=== PATIENT | female | born 1945 | race Caucasian/White ===

== ENCOUNTER 2020-03-30 06:22 | Outpatient (REF) | payer MEDICARE, SELFPAY ==
[2020-03-30 07:24] LABS: MANUAL DIFF FLAG NO
[2020-03-30 07:27] LABS: Basophils Absolute Auto 0.1 X10*3/uL (0.0-0.2); Basophils Percent Auto 1.2 % (0-2); Eosinophils Absolute Auto 0.2 X10*3/uL (0.0-0.4); Glucose Urine UA NEG (NEG); Hematocrit 38.1 % (37-47); Hemoglobin 12.8 g/dl (12.0-16.0); Imm Gran Abs Auto 0.01 X10*3/uL (0.00-0.03); Imm Gran Pct Auto 0.2 % (0.0-0.4); Leukocyte Esterase Urine NEG (NEG); Lymphocytes Absolute Auto 1.9 X10*3/uL (1.2-4.9); Lymphocytes Percent Auto 32.7 % (20-40); Mean Corpuscular HGB Conc 33.6 g/dl (31.0-35.0); Mean Corpuscular Hemoglobin 31.9 pg (27.0-33.0); Mean Platelet Volume 9.9 fL (9.4-12.3); Monocytes Absolute Auto 0.8 X10*3/uL (0.1-1.2); Monocytes Percent Auto 13.7 % (2-11); Neutrophils Absolute Auto 2.8 X10*3/uL (2.0-8.3); Neutrophils Percent Auto 49.2 % (45-73); Nitrite Urine NEG (NEG); PH 6.5 (5.0-8.0); Platelet Count 210 X10*3/uL (160-400); Red Blood Count 4.01 X10*6/uL (4.20-5.50); Red Cell Distribution Width 13.1 % (11.0-16.0); Urine Blood TRACE (NEG); Urine Ketones NEG (NEG); Urine Protein NEG (NEG-TRACE); White Blood Count 5.7 X10*3/uL (4.8-10.8)
[2020-03-30 07:28] LABS: Appearance Urine HAZY; Color Urine YELLOW
[2020-03-30 07:45] LABS: Alanine Aminotransferase 22 U/L (0-31); Alkaline Phosphatase 85 U/L (39-117); Anion Gap 12 (12-20); Aspartate Amino Transferase 25 U/L (5-31); Bilirubin Total 0.5 mg/dL (0.0-1.0); Blood Urea Nitrogen 15 mg/dL (9-16); Calcium 8.9 mg/dL (8.4-10.2); Carbon Dioxide 27 mmol/L (22-29); Chloride 100 mmol/L (96-108); Cholesterol 145 mg/dL; Estimated Glomerular Filt Rate > 60; Glucose Fasting 105 mg/dL (60-99); HDL Cholesterol 51 mg/dL; LDL Cholesterol Calculated 63 mg/dl; Potassium 5.2 mmol/l (3.3-5.1); Sodium 134 mmol/L (135-145); Total Protein 7.3 g/dL (6.5-8.0); Triglycerides 155 mg/dL
[2020-03-30 07:52] LABS: Bacteria Urine 4+ /LPF; RBC Urine 0-2 /HPF (0); Squamous Epithelial Cell Urine 3+ /LPF
[2020-03-30 08:07] LABS: Thyroid Stimulating Hormone 1.71 uIU/mL (0.32-4.0); Vitamin D 25-OH Total 35.8 ng/mL (>30)
== END 2020-03-30 06:23 | disposition home or self-care (01) ==
LOC: HO.LAB 06:22
PROVIDERS: PCP Internal Medicine; Visit Provider Internal Medicine
DX: I25.10 Atherosclerotic heart disease of native coronary artery without angina pectoris (principal); I10 Essential (primary) hypertension; E78.5 Hyperlipidemia, unspecified; I48.0 Paroxysmal atrial fibrillation; Z00.00 Encounter for general adult medical examination without abnormal findings; Z91.09 Other allergy status, other than to drugs and biological substances
CPT/HCPCS: 36415; 80053; 80061; 81001; 82306; 84443; 85025

== ENCOUNTER 2020-12-15 08:36 | Outpatient (REF) | payer MEDICARE, SELFPAY ==
--- NOTE | ~2020-12-15 | XR_ITS ---
EXAMINATION: XR CHEST XR THORACIC SPINE CLINICAL INFORMATION: Back pain COMPARISON: None TECHNIQUE: 2 views of the chest. 3 views of the thoracic spine. FINDINGS: Chest: The cardiac silhouette does not appear enlarged. There is mitral annular calcification. There is a right subclavian single chamber pacemaker defibrillator with tip projecting over the ventricular apex. Hilar and mediastinal contours are unremarkable. The lungs are clear. There is no pleural effusion or pneumothorax. There are T5, T6, T7 and T10 vertebral body compression fractures. There is a L2 vertebral body compression fracture. There are degenerative changes at the shoulder joints. There are postsurgical changes to the left shoulder. Thoracic Spine: There is mild curvature of the thoracolumbar spine. There are T5, T6, T7, T9 and L2 vertebral body compression fractures. Paraspinal soft tissues are unremarkable. There are degenerative changes of the visualized cervical spine. XR/XR thoracic spine 3V IMPRESSION: No evidence for acute disease in the chest. T5, T6, T7, T9 and L2 vertebral body compression fractures.
--- NOTE | ~2020-12-15 | XR_ITS ---
EXAMINATION: XR CHEST XR THORACIC SPINE CLINICAL INFORMATION: Back pain COMPARISON: None TECHNIQUE: 2 views of the chest. 3 views of the thoracic spine. FINDINGS: Chest: The cardiac silhouette does not appear enlarged. There is mitral annular calcification. There is a right subclavian single chamber pacemaker defibrillator with tip projecting over the ventricular apex. Hilar and mediastinal contours are unremarkable. The lungs are clear. There is no pleural effusion or pneumothorax. There are T5, T6, T7 and T10 vertebral body compression fractures. There is a L2 vertebral body compression fracture. There are degenerative changes at the shoulder joints. There are postsurgical changes to the left shoulder. Thoracic Spine: There is mild curvature of the thoracolumbar spine. There are T5, T6, T7, T9 and L2 vertebral body compression fractures. Paraspinal soft tissues are unremarkable. There are degenerative changes of the visualized cervical spine. XR/XR chest 2V IMPRESSION: No evidence for acute disease in the chest. T5, T6, T7, T9 and L2 vertebral body compression fractures.
== END 2020-12-15 08:37 | disposition home or self-care (01) ==
LOC: HO.XRAY 08:36
PROVIDERS: PCP Internal Medicine; Visit Provider Internal Medicine
DX: M54.6 Pain in thoracic spine (principal)
CPT/HCPCS: 71046; 72072

== ENCOUNTER 2021-12-27 11:13 | Outpatient (REF) | payer MEDICARE, SELFPAY ==
[2021-12-27 14:00] LABS: MANUAL DIFF FLAG NO
[2021-12-27 14:22] LABS: Basophils Absolute Auto 0.1 X10*3/uL (0.0-0.2); Basophils Percent Auto 0.8 % (0-2); Eosinophils Absolute Auto 0.2 X10*3/uL (0.0-0.4); Eosinophils Percent Auto 2.7 % (0-4); Hematocrit 38.9 % (37.0-47.0); Hemoglobin 13.5 g/dl (12.0-16.0); Imm Gran Abs Auto 0.01 X10*3/uL (0.00-0.03); Imm Gran Pct Auto 0.1 % (0.0-0.4); Lymphocytes Absolute Auto 2.5 X10*3/uL (1.2-4.9); Lymphocytes Percent Auto 33.7 % (20-40); Mean Corpuscular HGB Conc 34.7 g/dl (31.0-35.0); Mean Corpuscular Hemoglobin 33.2 pg (27.0-33.0); Mean Corpuscular Volume 95.6 fL (80.0-98.0); Mean Platelet Volume 10.6 fL (9.4-12.3); Monocytes Percent Auto 13.8 % (2-11); Neutrophils Absolute Auto 3.6 x10*3/uL (2.0-8.3); Neutrophils Percent Auto 48.9 % (45-73); Platelet Count 191 X10*3/uL (160-400); Red Blood Count 4.07 X10*6/uL (4.20-5.50); Red Cell Distribution Width 12.8 % (11.0-16.0); White Blood Count 7.3 X10*3/uL (4.8-10.8)
[2021-12-27 14:44] LABS: Anion Gap 15 (12-20); Blood Urea Nitrogen 16 mg/dL (9-16); Calcium 9.3 mg/dL (8.4-10.2); Carbon Dioxide 27 mmol/L (22-29); Chloride 96 mmol/L (96-108); Estimated Glomerular Filt Rate > 60; Glucose Random 96 mg/dL (60-115); Potassium 4.7 mmol/L (3.3-5.1); Sodium 133 mmol/L (135-145)
== END 2021-12-27 11:14 | disposition home or self-care (01) ==
LOC: HO.HMGCLDS 11:13
PROVIDERS: PCP Internal Medicine; Visit Provider Internal Medicine
DX: H26.9 Unspecified cataract (principal); I25.10 Atherosclerotic heart disease of native coronary artery without angina pectoris; I10 Essential (primary) hypertension
CPT/HCPCS: 36415; 80048; 85025

== ENCOUNTER 2022-04-12 09:59 | Outpatient (REF) | payer MEDICARE, SELFPAY ==
--- NOTE | ~2022-04-12 | XR_ITS ---
EXAMINATION: XR HAND, LEFT CLINICAL INFORMATION: Left hand pain. COMPARISON: None TECHNIQUE: PA, lateral, and oblique views of the left hand. FINDINGS: Mild soft tissue swelling surrounds the proximal interphalangeal joint of the fourth digit with mild proximal interphalangeal degenerative joint changes. There is no overt acute underlying fracture. Moderate hypertrophic changes are seen in the distal interphalangeal joint of the fifth digit 6. Surrounding small calcifications are seen as well. Mild degenerative changes are seen in the remainder of the interphalangeal joints as well as first carpometacarpal and triscaphe joints. The carpal bones are normally aligned. The soft tissues are unremarkable. XR/XR hand LT min 3V IMPRESSION: 1. Mild soft tissue swelling surrounding the proximal interphalangeal joint of the fourth digit without definitive acute underlying osseous abnormality. Lines 2. Degenerative joint changes most consistent with osteoarthritis.
== END 2022-04-12 10:00 | disposition home or self-care (01) ==
LOC: HO.HOSX 09:59
PROVIDERS: PCP Internal Medicine; Visit Provider Orthopaedic Surgery
DX: M19.042 Primary osteoarthritis, left hand (principal)
CPT/HCPCS: 73130; 99202

== ENCOUNTER 2023-01-16 06:42 | Outpatient (REF) | payer MEDICARE, SELFPAY ==
[2023-01-16 07:06] LABS: MANUAL DIFF FLAG NO
[2023-01-16 07:39] LABS: Basophils Absolute Auto 0.1 X10*3/uL (0.0-0.2); Eosinophils Absolute Auto 0.2 X10*3/uL (0.0-0.4); Eosinophils Percent Auto 3.1 % (0-4); Hematocrit 38.5 % (37.0-47.0); Hemoglobin 13.1 g/dl (12.0-16.0); Imm Gran Abs Auto 0.01 X10*3/uL (0.00-0.03); Imm Gran Pct Auto 0.2 % (0.0-0.4); Lymphocytes Absolute Auto 2.1 X10*3/uL (1.2-4.9); Lymphocytes Percent Auto 36.5 % (20-40); Mean Platelet Volume 10.1 fL (9.4-12.3); Monocytes Absolute Auto 0.8 X10*3/uL (0.1-1.2); Monocytes Percent Auto 13.8 % (2-11); Neutrophils Absolute Auto 2.6 x10*3/uL (2.0-8.3); Neutrophils Percent Auto 45.4 % (45-73); Platelet Count 180 X10*3/uL (160-400); Red Blood Count 3.97 X10*6/uL (4.20-5.50); Red Cell Distribution Width 12.8 % (11.0-16.0); White Blood Count 5.7 X10*3/uL (4.8-10.8)
[2023-01-16 08:05] LABS: Alanine Aminotransferase 18 U/L (0-31); Albumin Level 3.9 g/dL (3.5-5.0); Alkaline Phosphatase 67 U/L (39-117); Anion Gap 12 (12-20); Aspartate Amino Transferase 28 U/L (5-31); Bilirubin Total 0.5 mg/dL (0.0-1.0); Blood Urea Nitrogen 12 mg/dL (9-16); Calcium 9.3 mg/dL (8.4-10.2); Carbon Dioxide 26 mmol/L (22-29); Chloride 100 mmol/L (96-108); Cholesterol 152 mg/dL (<200); Estimated Glomerular Filt Rate > 60; Glucose Fasting 98 mg/dL (60-99); HDL Cholesterol 51 mg/dL (>40); LDL Cholesterol Calculated 75 mg/dL (<100); Potassium 5.1 mmol/L (3.3-5.1); Sodium 133 mmol/L (135-145); Total Protein 7.6 g/dL (6.5-8.0); Triglycerides 132 mg/dL (<150)
[2023-01-16 08:20] LABS: Thyroid Stimulating Hormone 1.91 uIU/mL (0.32-4.0)
== END 2023-01-16 06:43 | disposition home or self-care (01) ==
LOC: HO.LAB 06:42
PROVIDERS: PCP Internal Medicine; Visit Provider Internal Medicine
DX: I25.10 Atherosclerotic heart disease of native coronary artery without angina pectoris (principal); I10 Essential (primary) hypertension; I48.0 Paroxysmal atrial fibrillation; E78.5 Hyperlipidemia, unspecified
CPT/HCPCS: 36415; 80053; 80061; 84443; 85025

== ENCOUNTER 2023-01-23 12:10 | Emergency (ER) | payer MEDICARE, SELFPAY ==
[2023-01-23] VITALS (9 sets, daily range): BP systolic 113–211; BP diastolic 53–99; PULSE 68–75; RESP 12–18; TEMP 36.7–36.8; O2SAT 86–97; BMI 28.3
--- NOTE | ~2023-01-23 | CT_ITS ---
STUDY: Unenhanced CT of the head and facial bones INDICATION: Pain after head and facial trauma TECHNIQUE: Continuous helical imaging obtained through the head and facial bones without IV contrast. Reconstructed images performed in the coronal and sagittal planes. This CT examination was performed using dose optimization techniques as appropriate, variously including the following: *Automated exposure control *Adjustment of mA and/or kV according to patient size (this includes techniques or standardized protocols for targeted exams where dose is matched to indication/reason for exam; i.e. extremities or head) *Use of iterative reconstruction technique TOTAL EXAM DLP: 306.92 mGy-cm FINDINGS: HEAD: Mild age-related volume loss. No intracranial hemorrhage or extra-axial fluid collections are identified. No evolving infarct, mass lesion, mass effect or midline shift. Lens extractions have been performed. No cranial fractures. See below for facial and sinus findings. FACIAL BONES: Large left periorbital/facial hematoma. Slightly depressed left lateral maxillary wall fractures. Small fractures involving the anterior and posterior maxillary malik with left maxillary soft tissue density with hyper and hypodense components. Tiny left orbital floor fracture not excluded on coronal 53/280. No displaced nasal fractures, but anterior nasal spine is irregular, axial 130/239. No maxillary or mandibular fractures. Zygomatic arches, right maxillary and orbital malik are intact. Temporomandibular joints are maintained. Frontal, ethmoid, sphenoid and right maxillary sinuses and mastoids are clear. Leftward nasal septal deviation and spur. Degenerative changes cervical spine. Nasopharynx, oropharynx, hypopharyngeal and laryngeal structures without abnormality. Submandibular and parotid glands are unremarkable. No pathologic lymphadenopathy. Dense carotid bulb calcifications. CT/CT facial bones wo IV con IMPRESSION: Large left periorbital and facial soft tissue hematoma with acute appearing fractures anterior, posterior and lateral left maxillary malik with complex left maxillary hemorrhage. Tiny left orbital floor fracture not excluded. Question possible posttraumatic loss of integrity anterior nasal spine. Left nasal septal deviation with spur. No acute intracranial pathology.
--- NOTE | ~2023-01-23 | CT_ITS ---
STUDY: Unenhanced CT of the cervical spine, IV contrast-enhanced CT of the chest, abdomen and pelvis COMPARISON: 12/15/2020 INDICATION: Traumatic fall, left flank pain TECHNIQUE: Continuous helical imaging obtained through the cervical spine without IV contrast. Reconstructed images performed in coronal and sagittal planes. Following injection of 85 mL Omnipaque 350, continuous helical imaging obtained through the chest, abdomen and pelvis. Reconstructed images performed in the coronal and sagittal planes. This CT examination was performed using dose optimization techniques as appropriate, variously including the following: *Automated exposure control *Adjustment of mA and/or kV according to patient size (this includes techniques or standardized protocols for targeted exams where dose is matched to indication/reason for exam; i.e. extremities or head) *Use of iterative reconstruction technique TOTAL EXAM DLP: 447, 236, 575 mGy-cm 4 cervical spine, chest, abdomen and pelvis respectively. FINDINGS: [employer]: Cervical spine: Degenerative changes. Chest: Pacer/AICD, aortic calcifications. Abdomen and pelvis: No obstruction. Phleboliths. CERVICAL SPINE: Cervical lordotic straightening. No traumatic fracture or subluxation. Multilevel degenerative changes including prolific facet hypertrophic changes. Bilateral neuroforaminal narrowings, most severe left C3-C4. No spinal canal narrowing. C5-C6 disc space obliteration. C6-C7 disc disease. Trace anterolisthesis C4 on C5. Odontoid is intact. Posterior elements are aligned and no prevertebral soft tissue swelling seen. Visualized intracranial structures within normal limits. Left maxillary sinus disease. Visualized nasopharynx, oropharynx, hypopharyngeal and laryngeal structures without abnormality. Submandibular and parotid glands within normal limits. Dense vascular calcifications bilateral carotid bulbs. No pathologic lymphadenopathy. CHEST: Airways, lungs and pleura: Trachea and bronchi are patent. Mosaic attenuation. No suspicious lung lesions. No pneumothoraces, pleural effusions, pleural thickening or pleural-based masses. Scattered atelectasis. Mediastinum: Unremarkable thyroid. Prominent lymph nodes, largest prevascular lymph node measures 1.2 cm, largest pretracheal measures 1.2 cm. Subcarinal lymph node measures 1 cm in short axis. Subcentimeter bilateral hilar lymph nodes. Heart and great vessels: Enlarged heart, particularly the left atrium. Mitral annular calcifications. Left ventricular outpouching suspicious for pseudoaneurysm versus aneurysm Indwelling pacer. Degree of coronary calcifications: Severe. Nonaneurysmal aorta with atherosclerotic calcifications. Enlarged pulmonary arteries, question pulmonary arterial hypertension. Chest wall and axilla: No pathologic lymphadenopathy. Right-sided implanted battery pack for AICD/pacer. Benign left breast calcifications. ABDOMEN AND PELVIS: Hepatobiliary: Liver normal in size, shape and attenuation. No liver lesions or intrahepatic or extrahepatic biliary ductal dilatation. Unremarkable gallbladder. Spleen: Pancreas: Adrenal glands without abnormality. Kidneys, ureters and bladder: Left renal hypodensities consistent with cysts. 3 mm left upper pole nonobstructing calculus. No hydroureteronephrosis or perinephric stranding. Unremarkable urinary bladder. Vessels: Atherosclerotic calcifications nonaneurysmal aorta with patency of mesenteric vessels. Unremarkable inferior venacavogram iliac veins. Patent portal system. Gastrointestinal: Hiatal hernia. Decompressed stomach. Nonobstructive bowel pattern. No bowel pathology recognized. Peritoneum: No free air, free fluid or stranding. Lymph nodes: No pathologic lymphadenopathy. Pelvic organs: Pessary. Bilateral ovaries are identified, left is largest measuring 2.4 cm. Phleboliths. BONES AND SOFT TISSUES: Kyphosis. T5, T6, T7, T10, L2 compression fractures seen previously. Moderate spinal canal narrowing L3-L4 due to ligamentum flavum and facet hypertrophy and small disc bulge. Multilevel disc space narrowing, most pronounced L5-S1. Mild retrolisthesis L2 on L3 Mild anterolisthesis L5 on S1 CT/CT abdomen pelvis w IV con IMPRESSION: No acute posttraumatic pathology cervical spine, chest, abdomen and pelvis. Pulmonary mosaic attenuation, question small airway disease. Left ventricular outpouching: Aneurysm versus pseudoaneurysm. Consider cardiac echo if not previously performed. 3 mm nonobstructing left renal calculus. Enlarged mediastinal lymph nodes. Stable thoracic and lumbar compression fractures.
--- NOTE | ~2023-01-23 | XR_ITS ---
EXAMINATION: XR RIBS, LEFT CLINICAL INFORMATION: Left rib and flank pain. Fall. COMPARISON: Previous chest and thoracic spine x-ray November 2020 TECHNIQUE: 3 views of the left ribs and one view of the chest were obtained. FINDINGS: The cardiac and mediastinal contours are stable. There is a right subclavian pacemaker AICD device unchanged in position. The lungs are clear. No pleural effusion or pneumothorax. No rib fracture. There are old thoracic and lumbar vertebral body compression fractures. There are degenerative changes of the spine and shoulders. There is evidence of previous surgery to the left shoulder. XR/XR ribs LT min 3V w CXR1V IMPRESSION: No evidence for acute disease in the chest. No rib fracture.
--- NOTE | 2023-01-23 12:15 | ED.GENADULT ---
HPI - General Adult General Chief complaint: Fall Stated complaint: fall facial inj Time Seen by Provider: 01/23/23 15:23 Source: patient Mode of arrival: ambulatory History of Present Illness HPI narrative: 77-year-old female who is on chronic blood thinners for proxy is mall atrial fibrillation reports a mechanical fall after tripping on the corner of her carpet and landing on her left side striking her left side of her face on the stone tile without loss of consciousness and reports left chest wall pain as well as significant pain and swelling to the left eye area Related Data Home Medications Medication Instructions Recorded Confirmed apixaban 5 mg tablet (Eliquis) 5 mg PO BID 04/12/22 estradiol 2 mg (7.5 mcg/24 hour) 1 vaginal [id number] 04/12/22 vaginal ring (Estring) ezetimibe 10 mg tablet 10 mg PO DAILY 04/12/22 fluoride (sodium) 1.1 % dental dental DIRECTED 04/12/22 paste (PreviDent 5000 Dry Mouth) furosemide 20 mg tablet 20 mg PO DAILY 04/12/22 omeprazole 20 mg capsule,delayed 20 mg PO DAILY 04/12/22 release ramipril 10 mg capsule 10 mg PO DAILY 04/12/22 rosuvastatin 40 mg tablet 40 mg PO DAILY 04/12/22 zafirlukast 20 mg tablet 20 mg PO BID 04/12/22 Allergies Allergy/AdvReac Type Severity Reaction Status Date / Time Sulfa (Sulfonamide Allergy Unknown hives Verified 04/12/22 10:04 Antibiotics) Review of Systems Review of Systems: Pertinent positives and negatives as stated in HPI [facility] Past Medical History Source: nursing notes reviewed Medical History Afib History of heart attack Surgical History History of appendectomy History of left knee replacement H/O lumpectomy Social History Social History Alcohol intake: current Use of substances other than those prescribed or required for medical reasons: No Advance Directives: No Advance Directives Information Provided: No Current occupational status: retired and disabled 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 Physical Exam ED Vital Signs: Vital Signs - 24 hr 01/23/23 12:14 01/23/23 15:25 01/23/23 15:25 Temperature 98.0 F 98.2 F Pulse Rate 69 68 72 Respiratory Rate 18 18 18 Blood Pressure 201/89 H 211/99 H Pulse Oximetry 95 96 97 Oxygen Delivery Method Room Air Room Air Oxygen Flow Rate 01/23/23 16:28 01/23/23 16:29 01/23/23 16:30 Temperature Pulse Rate 75 Respiratory Rate 17 Blood Pressure 194/90 H Pulse Oximetry 86 L 95 96 Oxygen Delivery Method Room Air Nasal Cannula Nasal Cannula Oxygen Flow Rate 3 2 01/23/23 16:51 01/23/23 18:02 Temperature Pulse Rate 73 Respiratory Rate Blood Pressure 155/84 H 115/59 L Pulse Oximetry 95 Oxygen Delivery Method Nasal Cannula Oxygen Flow Rate 2 BMI result Body Mass Index 28.3 VITAL SIGNS: Reviewed. GENERAL: Well developed, well nourished, in no acute distress. HEAD: Normocephalic/atraumatic, EYES: PERRLA, EOMI without gaze palsy, tremendous left periorbital contusion with obvious hemorrhagic component that extends caudally to the mid left buccal area EARS: Ext canals without abnormality, TMs non-bulging and non-erythematous NOSE: Nares patent bilateral OROPHARYNX: no oral lesions noted, posterior pharynx clear NECK: Supple, no adenopathy LUNGS: Normal breath sounds. No adventitious sounds or accessory muscle use. SpO2<95>; CHEST WALL: No obvious deformity, no crepitus on palpation but significant tenderness to palpation at left chest wall approximate 7 in 8 rib CARDIOVASCULAR: Regular rate and rhythm without noted murmurs, no JVD or lower extremity edema. ABDOMEN: Soft, non-tender, non-distended with bowel sounds. PELVIS: Stable, nontender MUSCULOSKELETAL: No tenderness, deformities, or effusions noted on gross inspection. EXTREMITIES: No cyanosis, clubbing or edema. LEFT SHOULDER: 1.5 cm ecchymosis at anterior shoulder without obvious deformity, scar tissue consistent with prior surgery. SKIN: Inspection of the skin reveals no rashes, ulcerations, jaundice, pallor, or petechiae. NEUROLOGIC: Alert and oriented x 4. Strength and sensation to light touch were grossly intact x 4. Course Course Course Narrative: This is an RME: Additional HPI, ROS, PE not included below will be deferred to primary provider. 77 y o female on blood thinners presenting for headache and facial pain s/p fall with +HS, -LOC. Endorsing mild blurry vision in the L eye near area of strike. Also c/o L flank pain. Ambulating well, no current dizziness, cp, sob Plan -- Imaging Medications Administered Discontinued Medications Generic Name Dose Route Start Last Admin Trade Name [place]ell PRN Reason Stop Dose Admin Hydralazine HCl 5 mg 01/23/23 16:32 01/23/23 16:38 Hydralazine Hcl 20 Mg/Ml Vial IVPUSH 01/23/23 16:33 5 mg ONCE ONE Administration Protocol Iohexol 85 ml 01/23/23 16:24 01/23/23 16:25 Iohexol 350 Mg/Ml 100 Ml Infus..Btl IV 01/23/23 16:25 85 ml ONCE ONE Administration Morphine Sulfate 2 mg 01/23/23 15:24 01/23/23 15:41 Morphine Sulfate 2 Mg/Ml Cartridge IVPUSH 01/23/23 15:25 2 mg ONCE ONE Administration Protocol Medical Decision Making Medical Decision Making MDM Narrative: 77-year-old female with history and clinical presentation, DDX: Mechanical fall, periorbital fracture, intracranial hemorrhage, left shoulder fracture, left rib fractures I reviewed all investigations and hematologic indices are negative for leukocytosis/left shift, anemia or thrombocytopenia. Coagulation studies consistent with history of Eliquis use, PT-14.9 and INR-1.2. Chemistry indices without HAL, there is a noted elevation of potassium-5.4, otherwise liver enzymes are within normal limits. Chest x-ray not significant for pneumothorax or infiltrate at and no rib fractures identified. CT of the head no acute intracranial bleeding. CT facial significant for large left periorbital and facial soft tissue hematoma with acute appearing fractures anterior/posterior and lateral left maxillary malik with complex left maxillary hemorrhage. Tiny left orbital floor fracture is not excluded. I do not appreciate any gaze palsies to suggest ocular muscle entrapment, pupillary reflex is brisk, there is no complaint of significant eye pain, acuity is intact. Are reviewed remaining CT scans of cervical spine, chest, abdomen/pelvis and there are no acute fractures or intra-abdominal pathologies. Patient did experience some hypotension but was completely oriented throughout and denied any dizziness, shortness of breath, or chest pain. This may have been after she received 5 mg of hydralazine for her blood pressure. 1807: I discuss the case with [facility] who will put me in contact with Dr. William from trauma. 181: As per Dr William, not considered trauma and recommended ED to ED with OMFS consultation. 181: I spoke with Dr Keys in the ED and accepts transfer. 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 Please see the discussion above 01/23/23 12:59 01/23/23 12:59 Labs: Lab Results 01/23/23 Range/Units 12:59 WBC 7.6 (4.8-10.8) X10*3/uL RBC 4.09 L (4.20-5.50) X10*6/uL Hgb 13.5 (12.0-16.0) g/dl Hct 39.4 (37.0-47.0) % MCV 96.3 (80.0-98.0) fL MCH 33.0 (27.0-33.0) pg MCHC 34.3 (31.0-35.0) g/dl RDW 12.8 (11.0-16.0) % Plt Count 187 (160-400) X10*3/uL MPV 9.7 (9.4-12.3) fL Immature Gran % (Auto) 0.3 (0.0-0.4) % Neut % (Auto) 56.4 (45-73) % Lymph % (Auto) 29.5 (20-40) % Mcdowell % (Auto) 11.1 H (2-11) % Eos % (Auto) 2.0 (0-4) % Baso % (Auto) 0.7 (0-2) % Lymph # (Auto) 2.3 (1.2-4.9) X10*3/uL Mcdowell # (Auto) 0.9 (0.1-1.2) X10*3/uL Eos # (Auto) 0.2 (0.0-0.4) X10*3/uL Baso # (Auto) 0.1 (0.0-0.2) X10*3/uL Abs Immat Gran (auto) 0.02 (0.00-0.03) X10*3/uL Absolute Neuts (auto) 4.3 (2.0-8.3) x10*3/uL Absolute Nucleated RBC 0.000 (0.0-0.012) X10*3/uL Nucleated RBC % (auto) 0.0 (0.0-0.2) /100WBC PT 14.9 H (11.1-13.3) SEC INR 1.2 H (0.9-1.1) Sodium 132 L (135-145) mmol/L Potassium 5.4 H (3.3-5.1) mmol/L Chloride 97 (96-108) mmol/L Carbon Dioxide 27 (22-29) mmol/L Anion Gap 13 (12-20) BUN 13 (9-16) mg/dL Creatinine 0.82 (0.5-1.4) mg/dL Estim Creat Clear Calc 62.1 Estimated GFR > 60 Random Glucose 113 (60-115) mg/dL Calcium 10.3 H D (8.4-10.2) mg/dL Total Bilirubin 0.5 (0.0-1.0) mg/dL AST 31 (5-31) U/L ALT 19 (0-31) U/L Alkaline Phosphatase 64 (39-117) U/L Total Protein 8.1 H (6.5-8.0) g/dL Albumin 4.2 (3.5-5.0) g/dL Independent Interpretation I performed an independent interpretation of an: EKG Interpretation: Sinus rhythm with PACs, HR-79, no STEMI, MN/QRS/QTC is within normal limits. There is no EKG for comparison and patient does have a history of ID. Radiology Impression Discussion of test interpretation with radiology: I have reviewed the radiologist's reading. Radiologist Impression: Please see the discussion above External Record Review External record reviewed: Outpatient record, Prior outpatient labs and Prior outpatient radiology Chronic Conditions Patient?s care impacted by: Hypertension Critical Care Time Critical Care Time Critical Care Time: Yes Total Critical Care Time: 45 Attestation: I personally attest to this time spent taking care of the patient. Discharge Plan Discharge Clinical Impression: Trauma, Fall, Periorbital hematoma of left eye, Fracture of orbital floor, blow-out, left, closed Patient Disposition: er Acute Care Hospital Transfer Details: OMFS evaluation ED to ED Prescriptions: No Action Eliquis 5 mg tablet 5 mg PO BID ramipril 10 mg capsule 10 mg PO DAILY rosuvastatin 40 mg tablet 40 mg PO DAILY omeprazole 20 mg capsule,delayed release(DR/EC) 20 mg PO DAILY furosemide 20 mg tablet 20 mg PO DAILY Estring 2 mg (7.5 mcg /24 hour) ring 1 vaginal [id number] ezetimibe 10 mg tablet 10 mg PO DAILY zafirlukast 20 mg tablet 20 mg PO BID fluoride (sodium) [PreviDent 5000 Dry Mouth] 1.1 % paste dental DIRECTED
[2023-01-23 13:03] LABS: MANUAL DIFF FLAG NO
[2023-01-23 13:08] LABS: Basophils Absolute Auto 0.1 X10*3/uL (0.0-0.2); Basophils Percent Auto 0.7 % (0-2); Eosinophils Absolute Auto 0.2 X10*3/uL (0.0-0.4); Hematocrit 39.4 % (37.0-47.0); Hemoglobin 13.5 g/dl (12.0-16.0); Imm Gran Abs Auto 0.02 X10*3/uL (0.00-0.03); Imm Gran Pct Auto 0.3 % (0.0-0.4); Lymphocytes Absolute Auto 2.3 X10*3/uL (1.2-4.9); Lymphocytes Percent Auto 29.5 % (20-40); Mean Corpuscular HGB Conc 34.3 g/dl (31.0-35.0); Mean Corpuscular Volume 96.3 fL (80.0-98.0); Mean Platelet Volume 9.7 fL (9.4-12.3); Monocytes Absolute Auto 0.9 X10*3/uL (0.1-1.2); Monocytes Percent Auto 11.1 % (2-11); Neutrophils Absolute Auto 4.3 x10*3/uL (2.0-8.3); Neutrophils Percent Auto 56.4 % (45-73); Platelet Count 187 X10*3/uL (160-400); Red Blood Count 4.09 X10*6/uL (4.20-5.50); Red Cell Distribution Width 12.8 % (11.0-16.0); White Blood Count 7.6 X10*3/uL (4.8-10.8)
[2023-01-23 13:19] LABS: INTERNATIONAL NORM RATIO 1.2 (0.9-1.1); Prothrombin Time 14.9 SEC (11.1-13.3)
[2023-01-23 13:26] LABS: Alanine Aminotransferase 19 U/L (0-31); Albumin Level 4.2 g/dL (3.5-5.0); Alkaline Phosphatase 64 U/L (39-117); Anion Gap 13 (12-20); Aspartate Amino Transferase 31 U/L (5-31); Bilirubin Total 0.5 mg/dL (0.0-1.0); Blood Urea Nitrogen 13 mg/dL (9-16); Calcium 10.3 mg/dL (8.4-10.2); Carbon Dioxide 27 mmol/L (22-29); Chloride 97 mmol/L (96-108); Creatinine Clr Calc Pharmacy 62.1; Estimated Glomerular Filt Rate > 60; Glucose Random 113 mg/dL (60-115); Potassium 5.4 mmol/L (3.3-5.1); Sodium 132 mmol/L (135-145); Total Protein 8.1 g/dL (6.5-8.0)
--- NOTE | 2023-01-23 15:39 | ECG_ITS ---
Test Reason : fall Blood Pressure : / mmHG Vent. Rate : 079 BPM Atrial Rate : 079 BPM P-R Int : 180 ms QRS Dur : 080 ms QT Int : 376 ms P-R-T Axes : 084 -11 071 degrees QTc Int : 431 ms Sinus rhythm with Premature atrial complexes Inferior infarct , age undetermined Anterior infarct , age undetermined Abnormal ECG No previous ECGs available Referred By: Cristina Romano Electronically Signed By:DIANE DU
[2023-01-23] MEDS: Morphine Sulfate 2 MG/ML CARTRIDGE IVPUSH (15:41)
[2023-01-23] MEDS: iohexoL 350 MG/ML 100 ML INFUS..BTL 85 ML IV (16:25)
[2023-01-23] MEDS: hydrALAZINE HCl 20 MG/ML VIAL 5 MG IVPUSH (16:38)
--- NOTE | 2023-01-23 16:52 | PC.NURSE ---
Pt O2 86%-87% on RA, pt placed on 2L NC O2 improved to 93-95%, MD updated. Pt BP 190's/90's, MD updated 5mg IV Hydralazine ordered, administered per MD order, pt tolerated well BP recheck 155/84 with HR 72. Pt states 3/10 pain, pt states she is comfortable at this time.
--- NOTE | 2023-01-23 22:26 | PC.NURSE ---
this rn gave report to ems prior to transport to [facility]. pt calm and cooperative. A&O x 4. this rn gave rn to rn report to Dick BRIDGES at [facility]. vss. pt declines pain medication prior to discharge
== END 2023-01-23 22:29 | disposition short-term general hospital (02) ==
PROVIDERS: Physician Assistant; Emergency Provider Student in an Organized Health Care Education/Training Program; PCP Internal Medicine
DX: S02.32XA Fracture of orbital floor, left side, initial encounter for closed fracture (principal); S20.212A Contusion of left front wall of thorax, initial encounter; S00.12XA Contusion of left eyelid and periocular area, initial encounter; W01.198A Fall on same level from slipping, tripping and stumbling with subsequent striking against other object, initial encounter; I48.0 Paroxysmal atrial fibrillation; Z79.01 Long term (current) use of anticoagulants; Z79.899 Other long term (current) drug therapy; Y93.89 Activity, other specified; Y92.9 Unspecified place or not applicable; Y99.9 Unspecified external cause status
CPT/HCPCS: 36415; 70450; 70486; 71101; 71260; 72125; 74177; 80053; 85025; 85610; 93005; 96374; 96375; 99285; J2270; Q9967

== ENCOUNTER 2023-04-19 10:23 | Outpatient (REF) | payer MEDICARE, SELFPAY ==
[2023-04-19 14:03] LABS: Anion Gap 11 (12-20); Blood Urea Nitrogen 15 mg/dL (9-16); Calcium 9.2 mg/dL (8.4-10.2); Carbon Dioxide 30 mmol/L (22-29); Chloride 98 mmol/L (96-108); Estimated Glomerular Filt Rate > 60; Glucose Random 99 mg/dL (60-115); Potassium 4.3 mmol/L (3.3-5.1); Sodium 135 mmol/L (135-145)
== END 2023-04-19 10:24 | disposition home or self-care (01) ==
LOC: HO.10HDL 10:23
PROVIDERS: Visit Provider Internal Medicine
DX: I10 Essential (primary) hypertension (principal)
CPT/HCPCS: 36415; 80048

== ENCOUNTER 2023-12-19 09:15 | Outpatient (REF) | payer MEDICARE, SELFPAY ==
--- NOTE | ~2023-12-19 | XR_ITS ---
EXAMINATION: XR LUMBOSACAL SPINE. XR PELVIS XR SACROILIAC JOINTS CLINICAL INDICATION: Patient states pain, acute. TECHNIQUE: 3 views of the bilateral sacroiliac joints, AP view of the pelvis, and 3 views of the lumbar spine. COMPARISON: CT abdomen and pelvis of 01/23/2023, x-ray left ribs 01/23/2023, x-ray thoracic spine 12/15/2020. FINDINGS: LUMBAR SPINE: Diffuse demineralization. Atherosclerotic aortoiliac calcifications. Facet arthritis in the mid to lower lumbar spine. Redemonstration of compression deformity of L2 vertebral body. Multilevel lumbar spondylosis is severe at L5-S1 with marked loss of disc space height and subchondral sclerosis. Grade 1 anterolisthesis of L5 on S1. Moderate compression deformity of T12 vertebral body. BILATERAL SACROILIAC JOINTS: Diffuse demineralization. Moderate degenerative changes in the bilateral sacroiliac joints, left greater than right. PELVIS: Moderate degenerative changes in the bilateral hip joints with joint space narrowing and hypertrophic change. Diffuse demineralization. XR/XR lumbar spine 2-3V IMPRESSION: 1. Redemonstration of compression deformity of L2 vertebral body. 2. Multilevel lumbar spondylosis most notable at L5-S1 with marked loss of disc space height and subchondral sclerosis. Grade 1 anterolisthesis of L5 on S1. 3. Moderate compression deformity of T12 vertebral body. 4. Moderate degenerative changes in the bilateral sacroiliac joints, left greater than right. 5. Moderate degenerative changes in the bilateral hip joints with joint space narrowing and hypertrophic change. 6. Diffuse demineralization limits evaluation for fractures or other pathology. Additional imaging could be considered if there is clinical concern for fracture or other pathology. This study was presented today January 07, 2024 for interpretation. Stat results provided at this time as requested by referring provider. Electronically signed by: Anjali Harry MD 01/07/2024 03:28 PM EDT
--- NOTE | ~2023-12-19 | XR_ITS ---
EXAMINATION: XR LUMBOSACAL SPINE. XR PELVIS XR SACROILIAC JOINTS CLINICAL INDICATION: Patient states pain, acute. TECHNIQUE: 3 views of the bilateral sacroiliac joints, AP view of the pelvis, and 3 views of the lumbar spine. COMPARISON: CT abdomen and pelvis of 01/23/2023, x-ray left ribs 01/23/2023, x-ray thoracic spine 12/15/2020. FINDINGS: LUMBAR SPINE: Diffuse demineralization. Atherosclerotic aortoiliac calcifications. Facet arthritis in the mid to lower lumbar spine. Redemonstration of compression deformity of L2 vertebral body. Multilevel lumbar spondylosis is severe at L5-S1 with marked loss of disc space height and subchondral sclerosis. Grade 1 anterolisthesis of L5 on S1. Moderate compression deformity of T12 vertebral body. BILATERAL SACROILIAC JOINTS: Diffuse demineralization. Moderate degenerative changes in the bilateral sacroiliac joints, left greater than right. PELVIS: Moderate degenerative changes in the bilateral hip joints with joint space narrowing and hypertrophic change. Diffuse demineralization. XR/XR pelvis 1-2V IMPRESSION: 1. Redemonstration of compression deformity of L2 vertebral body. 2. Multilevel lumbar spondylosis most notable at L5-S1 with marked loss of disc space height and subchondral sclerosis. Grade 1 anterolisthesis of L5 on S1. 3. Moderate compression deformity of T12 vertebral body. 4. Moderate degenerative changes in the bilateral sacroiliac joints, left greater than right. 5. Moderate degenerative changes in the bilateral hip joints with joint space narrowing and hypertrophic change. 6. Diffuse demineralization limits evaluation for fractures or other pathology. Additional imaging could be considered if there is clinical concern for fracture or other pathology. This study was presented today January 07, 2024 for interpretation. Stat results provided at this time as requested by referring provider. Electronically signed by: Anjali Harry MD 01/07/2024 03:28 PM EDT
--- NOTE | ~2023-12-19 | XR_ITS ---
EXAMINATION: XR LUMBOSACAL SPINE. XR PELVIS XR SACROILIAC JOINTS CLINICAL INDICATION: Patient states pain, acute. TECHNIQUE: 3 views of the bilateral sacroiliac joints, AP view of the pelvis, and 3 views of the lumbar spine. COMPARISON: CT abdomen and pelvis of 01/23/2023, x-ray left ribs 01/23/2023, x-ray thoracic spine 12/15/2020. FINDINGS: LUMBAR SPINE: Diffuse demineralization. Atherosclerotic aortoiliac calcifications. Facet arthritis in the mid to lower lumbar spine. Redemonstration of compression deformity of L2 vertebral body. Multilevel lumbar spondylosis is severe at L5-S1 with marked loss of disc space height and subchondral sclerosis. Grade 1 anterolisthesis of L5 on S1. Moderate compression deformity of T12 vertebral body. BILATERAL SACROILIAC JOINTS: Diffuse demineralization. Moderate degenerative changes in the bilateral sacroiliac joints, left greater than right. PELVIS: Moderate degenerative changes in the bilateral hip joints with joint space narrowing and hypertrophic change. Diffuse demineralization. XR/XR sacroiliac joint min 3V IMPRESSION: 1. Redemonstration of compression deformity of L2 vertebral body. 2. Multilevel lumbar spondylosis most notable at L5-S1 with marked loss of disc space height and subchondral sclerosis. Grade 1 anterolisthesis of L5 on S1. 3. Moderate compression deformity of T12 vertebral body. 4. Moderate degenerative changes in the bilateral sacroiliac joints, left greater than right. 5. Moderate degenerative changes in the bilateral hip joints with joint space narrowing and hypertrophic change. 6. Diffuse demineralization limits evaluation for fractures or other pathology. Additional imaging could be considered if there is clinical concern for fracture or other pathology. This study was presented today January 07, 2024 for interpretation. Stat results provided at this time as requested by referring provider. Electronically signed by: Anjali Harry MD 01/07/2024 03:28 PM EDT
== END 2023-12-19 09:16 | disposition home or self-care (01) ==
LOC: HO.XRAY 09:15
PROVIDERS: PCP Internal Medicine; Visit Provider Internal Medicine
DX: M54.50 Low back pain, unspecified (principal)
CPT/HCPCS: 72100; 72170; 72202

== ENCOUNTER 2024-07-09 14:28 | Outpatient (AMB) | payer MEDICARE, SELFPAY ==
--- NOTE | 2024-07-09 14:25 | MHC.PC.OV ---
Vital Signs 07/09/24 14:32 Height 5 ft 3.75 in Weight 158 lb BMI 27.3 BP 124/56 L Blood Pressure Location Rt brachial Pulse 57 Pulse Source Pulse Oximeter Temp 97.5 F Pulse Oximetry (%) 96 Intake Visit Reasons: follow up - see comments Intake Note: would like something to clear upher lungs really congested has a coughing fit. Allergies Sulfa (Sulfonamide Antibiotics) Allergy (Unknown, Verified 07/09/24 14:46) hives Medication List - Last Reconciled 07/09/24 by Tana Escobar PA-C albuterol sulfate 90 mcg/actuation 1 puff inhalation QID apixaban (Eliquis) 5 mg PO BID aspirin (Ecotrin Low Strength) 81 mg PO DAILY biotin mcg PO carvedilol 12.5 mg PO BID cholecalciferol (vitamin D3) 50 mcg PO DAILY estradiol (Estring) 1 vaginal [id number] ezetimibe 10 mg PO DAILY fexofenadine (Maude Allergy) 180 mg PO DAILY fluoride (sodium) 1.1% (PreviDent 5000 Dry Mouth) dental DIRECTED furosemide 20 mg PO DAILY krill oil mg PO wewjberalwaw-ksif-uuqmu acid 18-400 mg-mcg (Centrum) 1 tab PO DAILY nitroglycerin (Nitrostat) 0.4 mg sublingual Q5M PRN omeprazole 20 mg PO DAILY ramipril 10 mg PO DAILY rosuvastatin 40 mg PO DAILY zafirlukast 20 mg PO BID [facility] Medical History (Updated 07/09/24 @ 15:28 by Tana Escobar PA-C) Overweight (BMI 25.0-29.9) Bronchitis History of mammogram (~11/23/23) Breast cancer, left Squamous cell carcinoma of skin GERD (gastroesophageal reflux disease) Hyperlipidemia Hypertension Paroxysmal atrial fibrillation Congestive heart failure Coronary artery disease History of heart attack Surgical History History of colonoscopy (~12/20/18) History of appendectomy History of left knee replacement H/O lumpectomy Social History Alcohol intake: current Current occupational status: retired and disabled 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 Physical exam (Primary Care) Vital Signs: Last Vital Signs Temp 97.5 F 07/09/24 14:32 Pulse 57 07/09/24 14:32 BP 124/56 L 07/09/24 14:32 Pulse Ox 96 07/09/24 14:32 Care Plan Goal for BP management: <130/80 at goal BMI result Body Mass Index 27.3 BMI Assessment/Plan discussion: High BMI High, discussed plan: lifestyle, weight reduction, dietary, physical activity and alcohol moderation Coding Level of Care Code New Pt Level 4 (48341) Complex EM visit Add On G2211 Diagnoses Squamous cell carcinoma of skin C44.92 GERD (gastroesophageal reflux disease) K21.9 Hyperlipidemia E78.5 Hypertension I10 Paroxysmal atrial fibrillation I48.0 Congestive heart failure I50.9 Coronary artery disease I25.10 History of heart attack I25.2 Osteoarthritis of left hand M19.042 Bronchitis J40 Overweight (BMI 25.0-29.9) E66.3 Assessment & Plan Assessment & Plan (1) Squamous cell carcinoma of skin: Code(s): C44.92 - Squamous cell carcinoma of skin, unspecified Category: Medical Plan: Condition is chronic and stable continue to monitor. (2) GERD (gastroesophageal reflux disease): Code(s): K21.9 - Gastro-esophageal reflux disease without esophagitis Category: Medical Plan: Patient currently on omeprazole 20 mg daily. Condition is chronic and stable continue to monitor. (3) Hyperlipidemia: Code(s): E78.5 - Hyperlipidemia, unspecified Category: Medical Plan: TC Goal <200. Triglycerides Goal <150. LDL Goal <100. HDL> 40. Last lipid panel we have in our system is 01/16/2023 and it revealed triglycerides of 132, total cholesterol 152, LDL of 75, HDL of 51 at goal. Patient to continue Krill oil, ezetimibe 10 mg daily, rosuvastatin 40 mg daily. Condition is chronic and stable continue to monitor. (4) Hypertension: Code(s): I10 - Essential (primary) hypertension Category: Medical Plan: BP Goal <140/80 at Goal. Patient to continue aspirin 81 mg, Eliquis 5 mg p.o. b.i.d., carvedilol 12.5 mg p.o. b.i.d., ramipril 10 mg daily, nitroglycerin 0.4 mg sublingual as needed, rosuvastatin 40 mg daily. Condition is chronic and stable continue to monitor. (5) Paroxysmal atrial fibrillation: Code(s): I48.0 - Paroxysmal atrial fibrillation Category: Medical Plan: BP Goal <140/80 at Goal. Patient to continue aspirin 81 mg, Eliquis 5 mg p.o. b.i.d., carvedilol 12.5 mg p.o. b.i.d., ramipril 10 mg daily, nitroglycerin 0.4 mg sublingual as needed, rosuvastatin 40 mg daily. Condition is chronic and stable continue to monitor. (6) Congestive heart failure: Code(s): I50.9 - Heart failure, unspecified Category: Medical Plan: BP Goal <140/80 at Goal. Patient to continue aspirin 81 mg, Eliquis 5 mg p.o. b.i.d., carvedilol 12.5 mg p.o. b.i.d., ramipril 10 mg daily, nitroglycerin 0.4 mg sublingual as needed, rosuvastatin 40 mg daily. Condition is chronic and stable continue to monitor. (7) Coronary artery disease: Code(s): I25.10 - Atherosclerotic heart disease of [place] coronary artery without angina pectoris Category: Medical Plan: BP Goal <140/80 at Goal. Patient to continue aspirin 81 mg, Eliquis 5 mg p.o. b.i.d., carvedilol 12.5 mg p.o. b.i.d., ramipril 10 mg daily, nitroglycerin 0.4 mg sublingual as needed, rosuvastatin 40 mg daily. Condition is chronic and stable continue to monitor. (8) History of heart attack: Code(s): I25.2 - Old myocardial infarction Category: Medical Plan: BP Goal <140/80 at Goal. Patient to continue aspirin 81 mg, Eliquis 5 mg p.o. b.i.d., carvedilol 12.5 mg p.o. b.i.d., ramipril 10 mg daily, nitroglycerin 0.4 mg sublingual as needed, rosuvastatin 40 mg daily. Condition is chronic and stable continue to monitor. (9) Osteoarthritis of left hand: Code(s): M19.042 - Primary osteoarthritis, left hand Category: Medical Plan: Patient to continue vitamin-D and centrum supplements. Condition is chronic and stable continue to monitor. (10) Bronchitis: Code(s): J40 - Bronchitis, not specified as acute or chronic Category: Medical Plan: A Z-Huang and a short course of prednisone were prescribed for the suspected bacterial bronchitis. Risks and benefits of treatment alternatives were discussed. (11) Overweight (BMI 25.0-29.9): Code(s): E66.3 - Overweight Category: Medical Plan: A Z-Huang and a short course of prednisone were prescribed for the suspected bacterial bronchitis. Risks and benefits of treatment alternatives were discussed. Plan Plan Patient was informed and verbally consented to the use of an ambient scribe for clinic note documentation during this visit. 1. Atrial Fibrillation Continued daily anticoagulation therapy with regular cardiac evaluations. 2. Essential Hypertension Ongoing antihypertensive therapy with planned lipid profiling for cardiovascular risk assessment. 3. Hypercholesterolemia Continued statin therapy and follow-up blood lipid profiles to manage cholesterol. 4. Breast Cancer Continued surveillance for breast cancer with routine mammograms was suggested. 5. Upper Respiratory Tract Infection A Z-Huang and a short course of prednisone were prescribed for the suspected bacterial bronchitis. Risks and benefits of treatment alternatives were discussed. Discussion Notes I discussed with the patient the diagnosis of an upper respiratory tract infection with suggested bronchitis. The management plan includes prescribing a Z-Huang and prednisone to alleviate symptoms. We discussed the ongoing management of her chronic conditions, emphasizing regular follow-ups for blood work and cardiovascular assessments. I advised on the importance of not using sedating medication while driving or operating heavy machinery. The patient verbalized understanding and agreed to the treatment plan. Six-month follow-up appointment and early blood work were advised before the next visit to evaluate fasting lipid profiles, liver enzymes, and other routine laboratory parameters. Orders: Orders Complete Blood Count Auto Diff Today Z00.00 - Encounter for general adult medical examination without abnormal findings C Reactive Protein Today Z00.00 - Encounter for general adult medical examination without abnormal findings Erythrocyte Sedimentation Rate Today Z00.00 - Encounter for general adult medical examination without abnormal findings Hemoglobin A1c Today Z00.00 - Encounter for general adult medical examination without abnormal findings Magnesium Today Z00.00 - Encounter for general adult medical examination without abnormal findings Vitamin B12 and Folate Today Z00.00 - Encounter for general adult medical examination without abnormal findings Vitamin D 25-OH Total Today Z00.00 - Encounter for general adult medical examination without abnormal findings Lipid Panel Today Z00.00 - Encounter for general adult medical examination without abnormal findings Comprehensive [place]. Panel Fast Today Z00.00 - Encounter for general adult medical examination without abnormal findings Liver Panel Today Z00.00 - Encounter for general adult medical examination without abnormal findings Parathyroid Hormone Intact Today Z00.00 - Encounter for general adult medical examination without abnormal findings Medications: New nitroglycerin (Nitrostat) do not exceed 3 doses per episode 0.4 mg sublingual Q5M PRN 30 tabs 0RF chest pain azithromycin For 250 mg dose pack: take 500 mg today (day 1), then 250 mg for 4 days (days 2-5) PO 6 tabs 0RF prednisone 40 mg (2 x 20 mg) PO DAILY 5 days 10 tabs 0RF codeine-guaifenesin 10-100 mg/5 mL 5 mL PO Q6H PRN 120 mL 0RF cough Patient Instructions: Patient Instructions - Take prescribed Z-Huang and prednisone as instructed. - Continue taking current medications as directed unless advised otherwise. - Schedule and complete fasting blood work prior to the six-month follow-up. - Avoid driving or operating machinery while on Robitussin with Codeine. - Return for a follow-up in six months, earlier if symptoms worsen or new symptoms arise. - Seek immediate care if difficulty breathing, chest pain, or other serious symptoms occur. Scribe Plan - Not visible on output: History of Present Illness The patient is a 78-year-old female presenting with upper respiratory symptoms and a request for medication refills. She experienced a persistent cough with mucus production following influenza in June and was exposed to but did not contract COVID-19. Current symptoms include chest congestion and nighttime coughing without fever or severe respiratory distress, presumed bronchitis as the potential cause. She continues with her routine medications without the need for emergency inhaler use. Social History - The patient?s current nutritional intake, level of exercise, substance use, and employment status were not discussed in this visit. Review of Systems - Respiratory: Reports cough and mucus production, denies significant shortness of breath. - Constitutional: Reports past fever when she had the flu in June. - Neurological: Denies headaches, syncope, or dizziness. Physical Exam Appearance: Alert. Oriented X3. No acute distress. Head: Normal external exam. Normocephalic. Atraumatic. Eyes: Pupils are equal, round, and reactive to light. Extraocular movements intact. Conjunctiva and sclera normal. Eyelids normal. Ears: External auditory canal normal. Tympanic membranes normal. Throat: Pharynx normal. Uvula midline. Moist mucous membranes. Neck: Normal inspection. Neck supple. Full range of motion. No adenopathy. Thyroid Normal. No meningeal signs. No neck mass noted. Cardiovascular: Normal heart rate and rhythm. Heart sound normal. No murmurs noted. Pulses normal throughout. Respiratory: No respiratory distress. Painless inspiration. Breath sounds normal. No wheezes/rales/rhonchi noted. Chest nontender. No accessory muscle usage noted or decreased air movement noted. Abdomen: Soft and nontender. Bowel sounds normal in all 4 quadrants. No distention noted. No organomegaly noted. No visible injury noted. Back: No costovertebral angle tenderness. Full range of motion noted. Skin: Skin warm and dry. Normal skin color. Normal skin turgor. No rashes/lesions/lacerations noted. Extremities: No lower extremity edema. Extremities exhibit normal range of motion. Extremities nontender. Neuro: Oriented X 3. No motor deficit. No sensory deficit. Reflexes normal. Results - Tests and Diagnostics: Recent negative COVID-19 test.
[2024-07-09 14:32] VITALS: BP 124/56; PULSE 57; TEMP 36.4; O2SAT 96; BMI 27.3
--- OUTSIDE RECORDS SUMMARY | 2024-07-09 16:47 | XMS_ITS | Clinical Summary ---
Author Organization [facility] Address [address] [place] [address] Care Team Providers Care Sales Operations Lead Name Role Phone Mateo Clements Primary Care Provider [phone] Allergies Active Allergy Reactions Criticality Noted Date Comments Sulfa Antibiotics 11/16/2016 Medications Medication Sig Dispensed Refills Start Date End Date Status ramipril (ALTACE) 5 MG capsule Take 10 mg by mouth daily. 0 Active atenolol (TENORMIN) tablet 50 mg Take 50 mg by mouth daily. 0 Active ATORVASTATIN CALCIUM 80 MG PO TABS Take 80 mg by mouth daily. 0 Active estradiol (ESTRING) [address] 2 mg vaginally every 3 (three) months. follow package directions 0 Active omeprazole (PRILOSEC) 20 MG capsule Take 20 mg by mouth daily. 0 Active nitroglycerin (NITROSTAT) 0.[address] 0.4 mg under the tongue every 5 (five) minutes as needed for chest pain. 0 Active fluticasone (FLONASE) 50 MCG/ACT nasal spray spray/apply 1 spray in each nostril daily. 0 Active KRILL OIL PO Take by mouth. 0 Active Loratadine (CLARITIN PO) Take by mouth. 0 Active cholecalciferol (VITAMIN D3) 1000 UNITS tablet Take 1,000 Units by mouth daily. 0 Active furosemide (LASIX) 20 MG tablet Take 20 mg by mouth 2 (two) times a day. 0 Active carvedilol (COREG) 12.5 MG tablet Take 12.5 mg by mouth 2 (two) times a day with meals. 0 Active apixaban (ELIQUIS) 5 MG TABS tablet Take by mouth every 12 (twelve) hours. 0 Active Biotin 23700 MCG TBDP Take 50,000 Units by mouth. 0 Active Active Problems Problem Noted Date Diagnosed Date Malignant neoplasm of central portion of left fe male breast 11/21/2016 Family History Medical History Relation Name Comments Cancer Brother prostate Heart disease Father Stroke Father Relation Name Status Comments Brother Father Social History Tobacco Use Types Packs/Day Years Used Date Smoking Tobacco: Never Smokeless Tobacco: Never Alcohol Use Standard Drinks/Week Comments Yes 0 (1 standard drink = 0.6 oz pur e alcohol) occasional Sex and Gender Information Value Date Recorded Sex Assigned at Not on file Gender Identity Not on file Sexual Orientation Not on file Last Filed Vital Signs Vital Sign Reading Time Taken Comments Blood Pressure 156/75 11/28/2019 9:23 AM EDT Pulse 60 11/28/2019 9:23 AM EDT Temperature 36.6 ??C (97.8 ??F) 11/28/2019 9:23 AM ED T Respiratory Rate - - Oxygen Saturation - - Inhaled Oxygen Concentration - - Weight 84.4 kg (186 lb) 11/28/2019 9:23 AM EDT Height 167.6 cm (5' 6 ) 11/28/2019 9:23 AM EDT Body Mass Index 30.02 11/28/2019 9:23 AM EDT Plan of Treatment Health Maintenance Due Date Last Done Comments Hepatitis C Screening 1945 COVID-19 Vaccine (#1) 09/13/1950 Pneumococcal Vaccine (1 of 2 - PCV) 1952 Depression Screening 1958 Preventative Health Evaluation 1964 DTap / Tdap / Td (1 - Tdap) 1965 Shingrix-Zoster Vaccine (1 of 2) 1965 Fall Risk Assessment 09/13/2011 Osteoporosis Screening (DEXA Scan) 09/13/2011 RSV Adult > 60+ Yrs or Pregn ant (1 - 1-dose 75+ series) 2021 Influenza Vaccine (#1) 2023 Hepatitis B Vaccines Aged Out No long er eligible based on patient's age to complete this topic RSV Ped < 20 months Aged Out No longe r eligible based on patient's age to complete this topic Care Teams Sales Operations Lead Relationship Specialty Start Date End Date Mateo Clements DO [address] [place] [phone] PCP - General Internal Medicine 11/20/18
--- OUTSIDE RECORDS SUMMARY | 2024-07-09 16:47 | XMS_ITS | Encounter Summary ---
Author Organization [facility] [place] [address] Care Team Providers Care Wireless Team Member Name Role Phone Mateo Clements DO Primary Care Provider [phone] Reason for Visit * Reason Onset Date Comments Med Refill 06/27/2024 Encounter Details Date Type Department Care Team (Late st Contact Info) Description 06/27/2024 Telephone [facility] - [facility] [address] [facility] [address] [place] [address] Ira Matos MA Med Refill Social History Tobacco Use Types Packs/Day Years Used Date Smoking Tobacco: Former Cigarettes Smokeless Tobacco: Never Alcohol Use Standard Drinks/Week Comments Yes 0 (1 standard drink = 0.6 oz pur e alcohol) Comments Unknown Sex and Gender Information Value Date Recorded Sex Assigned at Female 03/03/2024 5:35 PM EST Legal Sex Female 3:44 AM EST Gender Identity Female 03/03/2024 5:35 PM EST Sexual Orientation Straight 03/03/2024 5: 35 PM EST documented as of this encounter Ordered Prescriptions Prescription Sig Dispense Quantity Refills Last Filled Start Date End Date furosemide (LASIX) 20 mg tablet Take 1 tablet (20 mg total) by mouth 1 (one) time each day. 90 tablet 1 06/27/2024 documented in this encounter Progress Notes * Checo Kee NP - 07/07/2024 7:41 AM EDT Can we let the patients know the BMP looks good. * Ira Matos MA - 06/27/2024 3:22 PM ESTAddended by: IRA MATOS on: 06/27/2024 03:22 PM Modules accepted: Orders * Ira Matos MA - 06/27/2024 3:19 PM EST Renewed; lab order mailed. * Checo Kee NP - 06/27/2024 3:07 PM EST It is okay to renew the Lasix but lets have him draw a BMP as soon as she can. * Ira Matos MA - 06/27/2024 2:55 PM EST Ok to renew Lasix 20mg daily ? Dose verified with patient. No updated labs either. Pt states has not had any labs in a while. ROSCOE . Upcoming appt 09.26.2024 If labs are warranted , she goes to [facility] [place] documented in this encounter Plan of Treatment Upcoming Encounters Date Type Department Care Team (Late st Contact Info) Description 09/26/2024 7:40 AM EDT Office Visit [facility] - [facility] [address] [facility] [address] [place] [address] Checo Kee NP [address] [place] [address] 11/18/2024 9:30 AM EDT Ancillary Procedure [facility] - [address] [place] [address] 11/24/2024 8:15 AM EDT Appointment [facility] [address] [phone] documented as of this encounter Procedures Procedure Name Priority Date/Time Associated Diagnosis Comments BASIC METABOLIC PANEL Routine 07/04/2024 7:37 AM EDT Paroxysmal atrial fibrillation (CMS/HCC) documented in this encounter Results * (ABNORMAL) Basic metabolic panel (07/04/2024 7:37 AM EDT) Glucose 101(H) 70 - 99 mg/dL [facility] 1 Blood Urea Nitrogen (BUN) 18 8 - 27 mg/dL [facility] 1 Creatinine 0.73 0.57 - 1.00 mg/dL [facility] 1 eGFR 85 >59 mL/min/1.7 3 [facility] 1 BUN/Creatinine Ratio 25 12 - 28 [facility] 1 Sodium 138 134 - 144 mmol/L [facility] 1 Potassium 4.5 3.5 - 5.2 mmol/L [facility] 1 Chloride 101 96 - 106 mmol/L [facility] 1 Carbon Dioxide 21 20 - 29 mmol/L [facility] 1 Calcium 9.1 8.7 - 10.3 mg/dL [facility] 1 Blood Venous blood specimen / Unknown 07/04/2024 7:37 AM EDT 07/04/2024 Narrative [facility] 1 - 07/05/2024 1:06 AM EDT Performed at: ??01 - [facility] [address] ??[id number] Paper Supervisor: Lupe Mckeon MD, Phone: ??[phone] us Checo Kee NP LAB BLOOD ORDERABLES Final Resul t [facility] 1 documented in this encounter Visit Diagnoses Diagnosis Paroxysmal atrial fibrillation (CMS/HCC)- Primary Atrial fibrillation Encounter for adjustment or management of cardiac device Encounter for screening mammogram for breast cancer documented in this encounter Discontinued Medications Medication Sig Discontinue Reason Start Date End Da te furosemide (LASIX) 20 mg tablet TAKE 1 TABLET BY MOUTH DAILY Reorder 01/08/2023 06/27/2024 documented as of this encounter Care Teams Wireless Team Member Relationship Specialty Start Date End Date Mateo Clements DO [address] [place] [phone] PCP - General 07/09/12 documented as of this encounter
--- OUTSIDE RECORDS SUMMARY | 2024-07-09 16:47 | XMS_ITS | Clinical Summary ---
Author Organization [address] [place] [address] [place] [phone] Phone Care Team Providers Care Frit Burner Name Role Phone Mateo Clements DO Primary Care Provider [phone] Allergies Active Allergy Reactions Criticality Noted Date Comments Sulfa (Sulfonamide Antibiotics) 11/2020 [place] Pollen-Rough Pigweed 02/06/2022 Pigweed Medications apixaban (Eliquis) 5 mg tablet Take 1 Tablet by mouth 2 times daily 4 Active aspirin (ASPIR-81 ORAL) Take by mouth daily. Active BIOTIN ORAL Take by mouth. Active carvediloL (COREG) 12.5 mg tablet TAKE 1 TABLET BY MOUTH TWICE DAILY WITH MEALS 3 Active CHOLECALCIFEROL, VITAMIN D3, ORAL Take by mouth daily. Active docusate sodium (COLACE) 100 mg capsule Take 100 mg by mouth 2 times daily. Active ezetimibe (ZETIA) 10 mg tablet TAKE 1 TABLET BY MOUTH DAILY 3 Active nitroglycerin (NITROSTAT) 0.[address] 1 TABLET UNDER THE TONGUE EVERY 5 MINS IF NEEDED FOR CHEST PAIN 3 Active omeprazole (PriLOSEC) [address] capsule Take 20 mg by mouth daily. Active zafirlukast (ACCOLATE) 20 mg tablet Take 1 Tablet by mouth 2 times daily. Active KRILL OIL ORAL Take by mouth. Active multivit-min/iron /folic acid/K (ADULTS MULTIVITAMIN ORAL) Take by mouth daily. Active rosuvastatin (CRESTOR) 40 mg tablet Take 1 Tablet by mouth daily 3 Active fexofenadine (KVNG) 60 mg tablet Take 1 tablet (60 mg total) by mouth 1 (one) time each day. Active ramipriL (ALTACE) 10 mg capsule Take 1 capsule (10 mg total) by mouth 1 (one) time each day. 90 capsule 2 4 Active furosemide (LASIX) 20 mg tablet Take 1 tablet (20 mg total) by mouth 1 (one) time each day. 90 tablet 1 5 Active furosemide (LASIX) 20 mg tablet TAKE 1 TABLET BY MOUTH DAILY 3 06/28/19 25 Discontinu ed(Reorder ) Active Problems Problem Noted Date Diagnosed Date Preprocedural cardiovascular examination 024 Assessment & Plan (03/13/2024 11:36 AM EST): No cardiovascular contraindications to percutaneous cementing procedure for vertebral compression fractures. Eliquis may be held for 48 to 72 hours prior to the procedure and resumed as soon as safely possible thereafter without a bridge. Would continue all other medications periprocedurally. S/P implantation of automati c cardioverter/defibrillator (AICD) 08/23/2023 Overview (03/13/2024): - Status post single-lead Medtronic, MRI compatible AICD placement in 2017 for VT/VF induced on EP study -Most recent heart failure device check that I have access to from November 2023 showing no overt heart failure, most recent full device check from October 2023 showing normal device function, no arrhythmias Assessment & Plan (03/13/2024 11:36 AM EST): Continue regular device clinic follow-up. 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 Would continue with her current medications. Heart failure with mildly reduced ejection fract ion 10/07/2021 Overview (03/13/2024): - Probably NYHA class I symptoms at baseline - Most recent echocardiogram on 10/01/2023 showed unfortunately suboptimal endocardial definition which could not be addressed with Definity contrast given issues with the IV and therefore I could not definitively assess for left ventricular apical thrombus, there was overall likely low normal to mildly reduced LV systolic function with akinesis of the apical anterior and inferior malik and evidence of apical septal aneurysm, there was normal RV size and systolic function with device wire seen in the right heart, severe left atrial enlargement, mild pulmonary hypertension, bulky mitral annular calcification extending to the subvalvular apparatus and into the left atrium associated with mild mitral stenosis and trace MR-no major changes compared with echo in 2020 - Cardiac MRI in October 2016 showed EF at that time was 45%, severe thinning and mild aneurysmal dilatation of the LV apex including the apical inferior segment and adjacent portions of the apical septal, apical anterior, and apical lateral segments consistent with a 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 Continue current carvedilol, ramipril, low-dose Lasix. She has not had any heart failure hospitalizations or decompensated symptoms for many years with good recovery of EF. Therefore I have not pushed escalation of GDMT. Paroxysmal atrial fibrillation 08/11/2021 Overview (03/13/2024): - Had an episode in February 2022 with spontaneous conversion after 14 hours in a prior 1 for 3 hours in April 2018 - More recently was seen at [facility] ER on 07/09/2023 with persistent A-fib for 48 hours-because she had been on uninterrupted Eliquis, was cardioverted at [facility] ER -On Eliquis for CVA prophylaxis Assessment & Plan (03/13/2024 11:36 AM EST): Continue Eliquis 5 twice daily for CVA prophylaxis, carvedilol for rate control. Mixed hyperlipidemia 02/28/2021 Overview (01/31/2024): Last Assessment & Plan: I reviewed her last lipid profile with her from January 2022. At that time the HDL was 51, the LDL was 64 and the triglycerides 183. I discussed with her about her diet. I did give her a slip to repeat her lipids. SOB (shortness of breath) 02/28/2021 Overview (01/31/2024): Last Assessment & Plan: She does get some mild shortness of breath ever since she was started on Accolate she feels good breathing is gotten slightly better. I am going to check a BNP. Coronary artery disease 02/28/2021 Overview (03/13/2024): - Status post anteroseptal CO over 24 years ago with angioplasty and stenting to the LAD at the time - Repeat cardiac cath in June 2016 for noted ventricular tachycardia showed a patent LAD stent with only minor luminal irregularities in left main and circumflex and 40% mid RCA stenosis-managed medically - Updated pharmacologic nuclear stress test in March 2021 showed a large, severe fixed defect involving the mid anteroseptal, mid inferior, and apical malik Assessment & Plan (03/13/2024 11:36 AM EST): No recurrent anginal symptoms. Continue current carvedilol, rosuvastatin 40 mg at bedtime, Zetia 10 mg daily, baby aspirin. Encounters Date Type Department Care Team Description 06/27/2024 Telephone [facility] [address] [facility] [address] [place] [phone] Laverne Matos MA Med Refill from Last 3 Months Surgical History Surgery Date Site/Laterality Comments INSERT / REPLACE / REMOVE PACEMAKER Medical History Medical History Date Comments Hypertension Hyperlipidemia Atrial fibrillation (CMS/HCC) Cardiomyopathy (CMS/HCC) Coronary artery disease Ventricular tachycardia (CMS/HCC) Family History Medical History Relation Name Comments Hypertension Father Stroke Father Cancer Mother Relation Name Status Comments Father Mother Social History Tobacco Use Types Packs/Day Years Used Date Smoking Tobacco: Former Cigarettes Smokeless Tobacco: Never Tobacco Cessation:Counseling Given: Not Answered Alcohol Use Standard Drinks/Week Comments Yes 0 (1 standard drink = 0.6 oz pur e alcohol) Comments Unknown Sex and Gender Information Value Date Recorded Sex Assigned at Female 03/03/2024 5:35 PM EST Legal Sex Female 3:44 AM EST Gender Identity Female 03/03/2024 5:35 PM EST Sexual Orientation Straight 03/03/2024 5: 35 PM EST Obstetrics History Last Filed Vital Signs Vital Sign Reading Time Taken Comments Blood Pressure 146/70 03/13/2024 9:15 AM EST Pulse 60 03/13/2024 9:15 AM EST Temperature - - Respiratory Rate - - Oxygen Saturation 97% 03/13/2024 9:15 AM EST Inhaled Oxygen Concentration - - Weight 74.9 kg (165 lb 3.2 oz) 03/13/2024 9:15 A M EST Height 168.9 cm (5' 6.5 ) 03/13/2024 9:15 AM EST Body Mass Index 26.26 03/13/2024 9:15 AM EST Plan of Treatment Upcoming Encounters Date Type Department Care Team (Late st Contact Info) Description 09/26/2024 7:40 AM EDT Office Visit [facility] [address] [facility] [address] [place] [phone] Checo Kee NP [address] [place] [address] 11/18/2024 9:30 AM EDT Ancillary Procedure [facility] [address] [facility] [address] [place] [phone] 11/24/2024 8:15 AM EDT Appointment [facility] [address] [place] [address] Health Maintenance Due Date Last Done Comments Zoster Vaccines (1 of 2) 1964 RSV Immunization Patients 60+ Years Old (1 - 1-dose 75+ series) 2021 Cholesterol Screening (Lipid Panel) 03/31/2022 Depression Screening 03/31/2022 Falls Risk Assessment 03/31/2022 Hepatitis C Screening 03/31/2022 Medicare Annual Wellness Visit 03/31/2022 Osteoporosis Screening (Bone Density Screening) 03/31/2022 Social Influencers of Health Screening 03/31/2022 COVID-19 Vaccine ( season) 2023 02/16/2021, 07/05/2020, 06/12/2020 Influenza Vaccine (#1) 2023 3, 12/27/2021, 03/23/2021, Additional history exists DTaP,Tdap,and Td Vaccines (2 - Td or Tdap) 12/30/2024 12/30/2014 Hypertension/CHF/CAD Annual BMP Blood Test 07/04/2025 07/04/2024 Pneumococcal Vaccine: 50+ Years Completed 03/03/2019, 01/26/2018, 01/16/2015 HIB Vaccines Aged Out No longer eligi ble based on patient's age to complete this topic HPV Vaccines Aged Out No longer eligi ble based on patient's age to complete this topic Hepatitis A Vaccines Aged Out No long er eligible based on patient's age to complete this topic Hepatitis B Vaccines Aged Out No long er eligible based on patient's age to complete this topic IPV Vaccines Aged Out No longer eligi ble based on patient's age to complete this topic MMR Vaccines Aged Out No longer eligi ble based on patient's age to complete this topic Meningococcal ACWY Vaccine Aged Out N o longer eligible based on patient's age to complete this topic Meningococcal B Vacine Aged Out No lo nger eligible based on patient's age to complete this topic RSV Immunization Patients Under 20 months Aged Out No longer eligible based on patient's age to complete this topic Varicella Vaccines Aged Out No longer eligible based on patient's age to complete this topic Medical Devices Implanted Type Area Cath Lab Radiological Technologist Device Identifier Shelf Expiration Date Model / Serial / Lot Medt-Card Visia Af Mri Vr [id number] Implanted:06/23 (Quantity not on file) Cardiac ICD MEDTR[employer] - CARDIAC RHYTH-CRDM VISIA AF MRI VR [id number] / [id number] / Procedures Procedure Name Priority Date/Time Associated Diagnosis Comments BASIC METABOLIC PANEL Routine 07/04/2024 7:37 AM EDT Paroxysmal atrial fibrillation (CMS/HCC) from Last 3 Months Results * (ABNORMAL) Basic metabolic panel (07/04/2024 [...] AM EDT Performed at: ??01 - [facility] [address] ??[id number] Milk Drying Machine Operator: Lupe Mckeon MD, Phone: ??[phone] us Checo Kee NP LAB BLOOD ORDERABLES Final Resul t [facility] 1 from Last 3 Months Insurance [employer] Care Teams Frit Burner Relationship Specialty Start Date End Date Mateo Clements DO [address] [place] [phone] PCP - General 07/09/12
== END 2024-07-09 14:56 | disposition home or self-care (01) ==
LOC: HO.HMCSH 14:28
PROVIDERS: PCP Internal Medicine; Visit Provider Physician Assistant Medical
DX: C44.92 Squamous cell carcinoma of skin, unspecified (principal); K21.9 Gastro-esophageal reflux disease without esophagitis; E78.5 Hyperlipidemia, unspecified; I10 Essential (primary) hypertension; I48.0 Paroxysmal atrial fibrillation; I50.9 Heart failure, unspecified; I25.10 Atherosclerotic heart disease of native coronary artery without angina pectoris; I25.2 Old myocardial infarction; M19.042 Primary osteoarthritis, left hand; J40 Bronchitis, not specified as acute or chronic; E66.3 Overweight

== ENCOUNTER → 2024-07-09 14:28 | Outpatient (BNVA) | payer MEDICARE, SELFPAY | PROVIDERS: PCP Internal Medicine; Visit Provider Physician Assistant Medical | DX: C44.92 Squamous cell carcinoma of skin, unspecified (principal); K21.9 Gastro-esophageal reflux disease without esophagitis; E78.5 Hyperlipidemia, unspecified; I10 Essential (primary) hypertension; I48.0 Paroxysmal atrial fibrillation; I50.9 Heart failure, unspecified; I25.10 Atherosclerotic heart disease of native coronary artery without angina pectoris; I25.2 Old myocardial infarction; J40 Bronchitis, not specified as acute or chronic; E66.3 Overweight; M19.042 Primary osteoarthritis, left hand | CPT/HCPCS: 99202 ==

== ENCOUNTER 2024-07-15 13:37 | Outpatient (AMB) | payer MEDICARE, SELFPAY ==
--- NOTE | 2024-07-15 13:38 | A.OFFPC_ITS ---
Vital Signs 07/15/24 13:42 Height 5 ft 3.75 in Weight 156 lb BMI 27.0 Intake Visit Reasons: productive cough Intake Note: coughing wher it wakes her up and coughing up yellow thick phlegm. Allergies Sulfa (Sulfonamide Antibiotics) Allergy (Unknown, Verified 07/15/24 13:59) hives Medication List - Last Reconciled 07/15/24 by Tana Escobar PA-C albuterol sulfate 90 mcg/actuation 1 puff inhalation QID apixaban (Eliquis) 5 mg PO BID aspirin (Ecotrin Low Strength) 81 mg PO DAILY biotin mcg PO carvedilol 12.5 mg PO BID cefpodoxime 200 mg PO BID 14 days cholecalciferol (vitamin D3) 50 mcg PO DAILY codeine-guaifenesin 10-100 mg/5 mL 5 mL PO Q6H PRN estradiol (Estring) 1 vaginal [id number] ezetimibe 10 mg PO DAILY fexofenadine (Maude Allergy) 180 mg PO DAILY fluoride (sodium) 1.1% (PreviDent 5000 Dry Mouth) dental DIRECTED furosemide 20 mg PO DAILY krill oil mg PO srtalcjbxegs-trlx-stqvs acid 18-400 mg-mcg (Centrum) 1 tab PO DAILY nitroglycerin (Nitrostat) 0.4 mg sublingual Q5M PRN omeprazole 20 mg PO DAILY ramipril 10 mg PO DAILY rosuvastatin 40 mg PO DAILY zafirlukast 20 mg PO BID PFSH Medical History Overweight (BMI 25.0-29.9) Bronchitis History of mammogram (~11/23/23) Breast cancer, left Squamous cell carcinoma of skin GERD (gastroesophageal reflux disease) Hyperlipidemia Hypertension Paroxysmal atrial fibrillation Congestive heart failure Coronary artery disease History of heart attack Surgical History History of colonoscopy (~12/20/18) History of appendectomy History of left knee replacement H/O lumpectomy Social History Alcohol intake: current Current occupational status: retired and disabled 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 Physical exam (Primary Care) BMI result Body Mass Index 27.0 Telehealth Telehealth Telehealth Platform: [employer] Location of provider rendering services: practice address Location of patient: address on file Patient Identification confirmed using: Name, : Yes Telehealth method: voice only Patient verbally consented to treatment: Yes Patient verbally consented to billing insurance company: Yes Patient informed of any privacy concerns related to visit: Yes Minutes spent on Phone/Video with Pt.: 10 Coding Level of Care Code Tele Est Pt Level 2 (05517) Diagnoses Bronchitis J40 Assessment & Plan Assessment & Plan (1) Bronchitis: Code(s): J40 - Bronchitis, not specified as acute or chronic Category: Medical Plan: Given the patient?s persistent cough and sputum production, I propose another antibiotic course and potential chest x-ray if symptoms do not improve with initial therapy. I have advised monitoring for worsening respiratory symptoms, suggesting a prompt follow-up if there is no improvement. Plan Plan Patient was informed and verbally consented to the use of an ambient scribe for clinic note documentation during this visit. 1. Chronic Cough With Yellow Sputum Given the patient?s persistent cough and sputum production, I propose another antibiotic course and potential chest x-ray if symptoms do not improve with in itial therapy. I have advised monitoring for worsening respiratory symptoms, suggesting a prompt follow-up if there is no improvement. 2. Influenza To address symptoms consistent with a follow-up complication of influenza, a new antibiotic course has been prescribed. This decision aims to manage the continuation and possible escalation of cough symptoms due to secondary bacterial involvement following viral illness. Discussion Notes I discussed with the patient the present symptoms consistent with a lingering secondary complication of influenza, recommending a new antibiotic regimen to target the persistent productive cough potentially indicative of bacterial involvement. The benefit of pursuing further diagnostic imaging via chest x-ray was outlined, particularly if there is no improvement with antibiotics, as well as the risks associated with continuation of symptoms. We agreed that continued monitoring for symptoms like wheezing and increased shortness of breath is essential, and she will reach out should this occur. I confirmed the prescription will be sent to her preferred pharmacy, and I emphasized the importance of adhering to the new regimen and provided guidance on the use of available symptomatic relief measures, including codeine at night for coughing, in alignment with her expressed preferences. Medications: New cefpodoxime must administer with a meal/food 200 mg PO BID 28 tabs 0RF bronchitis 14 days Patient Instructions: Patient Instructions - Begin new antibiotic medication as prescribed. - Monitor symptoms closely and report any development of wheezing, chest pain, or shortness of breath. - Continue using inhaler as needed for respiratory symptoms. - Use leftover codeine medication at night if coughing is disruptive. - Expect to do a chest x-ray if symptoms persist or worsen. - Notify the provider if there is no improvement over the next few days. - Contact us or seek care if experiencing significant difficulty in breathing, increased chest pain, or any new concerning symptoms. Scribe Plan - Not visible on output: History of Present Illness The patient is a 78-year-old female presenting with persistent cough with yellow sputum. Initially diagnosed with influenza earlier in the month, she started experiencing severe night-time coughing spells less than two days ago after running out of antibiotics. The cough yields thick, lemony yellow sputum that is difficult to expectorate. She denies fever or shortness of breath upon exertion or positional changes. She currently utilizes an inhaler and leftover codeine syrup for symptom management and expresses uncertainty regarding prednisone necessity due to an absence of wheezing or chest tightness. Review of Systems - Respiratory: Reports persistent cough with thick, yellow sputum. Denies wheezing, chest tightness, and shortness of breath.
[2024-07-15 13:42] VITALS: BMI 27.0
== END 2024-07-15 14:05 | disposition home or self-care (01) ==
LOC: HO.HMCSH 13:37
PROVIDERS: PCP Internal Medicine; Visit Provider Physician Assistant Medical
DX: J40 Bronchitis, not specified as acute or chronic (principal)

== ENCOUNTER → 2024-07-15 13:37 | Outpatient (BNVA) | payer MEDICARE, SELFPAY | PROVIDERS: PCP Internal Medicine; Visit Provider Physician Assistant Medical ==

== ENCOUNTER 2024-10-09 06:02 | Outpatient (REF) | payer MEDICARE, SELFPAY ==
--- NOTE | ~2024-10-09 | XR_ITS ---
EXAMINATION: XR CHEST CLINICAL INFORMATION: Z87.891 - Personal history of nicotine dependence COMPARISON: January 23, 2023 TECHNIQUE: 2 views of the chest were obtained. FINDINGS: Pulmonary reticular pattern. No consolidation pleural effusion or pneumothorax Cardiomediastinal silhouette appears prominent, unchanged. Calcified mitral valve. Calcified plaque thoracic aorta. Single electrode lead in the right ventricle region with a metallic reservoir in the anterior lateral right chest wall. Radiopaque material within the vertebral bodies of T11 and T12. Superior endplate compression deformity at likely T10. Superior endplate compression deformities at T5, T6 and T7 likely old. Degenerative changes in both shoulders with joint space narrowing. Radiopaque anchors and the left humeral head. S-shaped curvature of the thoracolumbar spine. XR/XR chest 2V IMPRESSION: Chronic interstitial lung disease without acute airspace disease. Calcified mitral valve. Status post kyphoplasty/vertebroplasty, T11 and T12. Old compression deformities at multiple levels likely osteoporotic in nature. Old/chronic rotator cuff tendon tear, right shoulder. Electronically signed by: Thiago Arroyo MD 10/09/2024 08:10 AM EDT
--- OUTSIDE RECORDS SUMMARY | 2024-10-09 06:05 | XMS_ITS | Clinical Summary ---
Author Organization [address] [place] [address] [place] [phone] Phone Care Team Providers Care Emblem Fuser Tender Name Role Phone Surya Aden MD Primary Care Provider [phone] Allergies Active Allergy Reactions Criticality Noted Date Comments Sulfa (Sulfonamide Antibiotics) 11/2020 [facility] Pollen-Rough Pigweed 02/06/2022 Pigweed Medications apixaban (Eliquis) 5 mg tablet Take 1 Tablet by mouth 2 times daily 4 Active aspirin (ASPIR-81 ORAL) Take by mouth daily. Active BIOTIN ORAL Take by mouth. Active CHOLECALCIFEROL, VITAMIN D3, ORAL Take by [...] MULTIVITAMIN ORAL) Take by mouth daily. Active fexofenadine (KVNG) 60 mg tablet Take [...] each day. 90 tablet 1 5 Active carvediloL (COREG) 12.5 mg tablet Take 1 tablet (12.5 mg total) by mouth 2 (two) times a day with meals. 180 tablet 1 5 Active rosuvastatin (CRESTOR) 40 mg tablet Take 1 tablet (40 mg total) by mouth at bedtime. Take 1 Tablet by mouth daily 90 tablet 1 5 Active rosuvastatin (CRESTOR) 40 mg tablet Take 1 Tablet by mouth daily 3 10/09/19 25 Discontinu ed(Reorder ) Active Problems Problem [...] regular device clinic follow-up. 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 Would continue with her current medications. Assessment & Plan (09/26/2024 8:20 AM EDT): Slightly elevated at the appointment today. I would like to have patient take blood pressure measurements at home if is consistent with measurements at the office today could look to titrate up the ramipril. Educated on the importance of diet lifestyle to help further assist in reducing blood pressure. The patient was encouraged to follow low-salt low-fat diet, make purposeful strides towards weight loss, and engage in routine aerobic exercise as tolerated. Heart failure with mildly re duced ejection fraction ([facility] V24, [facility] V28) 10/07/2021 Overview (03/13/2024): - Probably NYHA class [...] with RVEF of 61% Assessment & Plan (09/26/2024 8:20 AM EDT): At this point, she is clinically euvolemic on exam without progression in any symptoms of heart failure. Continue current carvedilol, ramipril, low-dose Lasix. She has not had any heart failure hospitalizations or decompensated symptoms for many years with good recovery of EF. Therefore I have not pushed escalation of GDMT. Assessment & Plan (03/13/2024 11:36 AM EST): At this point, she is clinically euvolemic on exam without progression in any symptoms of heart failure. Continue current carvedilol, ramipril, low-dose Lasix. She has not had any heart failure hospitalizations or decompensated symptoms for many years with good recovery of EF. Therefore I have not pushed escalation of GDMT. Paroxysmal atrial fibrillation (CMS/HCC V24, CMS /HCC V28) 08/11/2021 Overview (03/13/2024): - Had an episode in February 2022 with spontaneous conversion after 14 hours in a prior 1 for 3 hours in April 2018 - More recently was seen at [facility] ER on 07/09/2023 with persistent A-fib for 48 hours-because she had been on uninterrupted Eliquis, was cardioverted at [facility] ER -On Eliquis for CVA prophylaxis Assessment & Plan (09/26/2024 8:20 AM EDT): Continue Eliquis 5 twice daily for CVA prophylaxis, carvedilol for rate control. Assessment & Plan (03/13/2024 11:36 AM EST): [...] her a slip to repeat her lipids. Assessment & Plan (09/26/2024 8:20 AM EDT): Patient was given slip to update lipid panel by PCP has not done that yet. Most recent LDL from 2021 LDL 64 triglycerides 183. Continue with the ezetimibe 10 mg p.o. daily as well as the high dose 40 mg rosuvastatin. SOB (shortness of breath) 02/28/2021 Overview (01/31/2024): Last Assessment & Plan: She does get some mild shortness of breath ever since she was started on Accolate she feels good breathing is gotten slightly better. I am going to check a BNP. Coronary artery disease 02/28/2021 Overview (03/13/2024): - Status post anteroseptal GA over 24 years ago with angioplasty and [...] inferior, and apical malik Assessment & Plan (09/26/2024 8:20 AM EDT): No recurrent anginal symptoms. Continue current carvedilol, rosuvastatin 40 mg at bedtime, Zetia 10 mg daily, baby aspirin. Instructed to call 911 or go to the emergency room should the patient begin to experience chest pain or pressure lasting greater than 10 minutes does not resolve with rest. Assessment & Plan (03/13/2024 11:36 AM EST): No recurrent anginal symptoms. Continue current carvedilol, rosuvastatin 40 mg at bedtime, Zetia 10 mg daily, baby aspirin. Encounters Date Type Department Care Team Description 09/26/2024 7:40 AM EDT Office Visit [facility] Cardiology [facility] [address] [place] [address] Checo Kee NP SOB (shortness of breath) (Primary Dx); Mixed hyperlipidemia; Hypertension, unspecified type; Coronary artery disease involving north fork coronary artery of north fork heart without angina pectoris; Paroxysmal atrial fibrillation (CMS/HCC V24, CMS/HCC V28); Heart failure with mildly reduced ejection fraction (CMS/HCC V24, CMS/HCC V28); VT (ventricular tachycardia) (CMS/HCC V24, CMS/HCC V28) 09/19/2024 Telephone [facility] Cardiology [facility] [address] [place] [address] Magda Calvo MD Med Refill 09/10/2024 11:20 PM EDT Ancillary Procedure [facility] [address] [place] [address] 08/29/2024 Telephone [facility] [address] [place] [address] Magda Calvo MD Med Refill (Incoming fax [facility] COREG 12.5 mg ) 07/26/2024 1:05 AM EDT Ancillary Procedure [facility] [address] [place] [address] 07/22/2024 3:20 PM EDT Ancillary Procedure [facility] Cardiology [facility] [address] [place] [address] from Last 3 Months Surgical History Surgery Date Site/Laterality Comments INSERT / REPLACE / REMOVE PACEMAKER Medical History Medical History Date Comments Hypertension Hyperlipidemia Atrial fibrillation (CMS/HCC V24, CMS/HCC V28) Cardiomyopathy (CMS/HCC V24, [facility] V28) Coronary artery disease Ventricular tachycardia (CMS/[facility] V24, CMS/[facility] V2 8) Family History Medical History Relation Name Comments [...] Sign Reading Time Taken Comments Blood Pressure 150/70 09/26/2024 7:43 AM EDT Pulse 54 09/26/2024 7:43 AM EDT Temperature - - Respiratory Rate - - Oxygen Saturation 97% 09/26/2024 7:43 AM EDT Inhaled Oxygen Concentration - - Weight 75.3 kg (166 lb) 09/26/2024 7:43 AM EDT Height 167.6 cm (5' 6 ) 09/26/2024 7:43 AM EDT Body Mass Index 26.79 09/26/2024 7:43 AM EDT Plan of Treatment Upcoming Encounters Date Type Department Care Team (Late st Contact Info) Description 11/18/2024 9:30 AM EDT Ancillary Procedure [facility] [address] [facility] [address] [place] [id number] 11/24/2024 8:15 AM EDT Appointment [facility] [address] [phone] Health Maintenance Due Date Last Done Comments Zoster Vaccines (1 of 2) 1996 RSV Immunization Adult Patients (1 - 1-dose 75+ series) 2021 Cholesterol Screening (Lipid Panel) 03/31/2022 Depression Screening 03/31/2022 Falls Risk Assessment 03/31/2022 Hepatitis C Screening 03/31/2022 Medicare Annual Wellness Visit 03/31/2022 Osteoporosis Screening (Bone Density Screening) 03/31/2022 Social Influencers of Health Screening 03/31/2022 COVID-19 Vaccine ( season) 2023 02/16/2021, 07/05/2020, 06/12/2020 Influenza Vaccine (Season Ended) 2024 02/06/2023, 12/27/2021, 03/23/2021, Additional history exists DTaP,Tdap,and Td [...] age to complete this topic Meningococcal B Vaccine Aged Out No l onger eligible based on patient's age to complete this topic RSV Immunization Patients Under 20 months Aged Out No longer eligible based on patient's age to complete this topic Varicella Vaccines Aged Out No longer eligible based on patient's age to complete this topic Medical Devices Implanted Type Area Sensor Technician Device Identifier Shelf Expiration Date Model / Serial / Lot Medt-Card Visia Af Mri Vr [id number] Implanted:06/23 (Quantity not on file) Cardiac ICD [employer] - CARDIAC RHYTH-CRDM VISIA AF MRI VR [id number] / [id number] / Procedures Procedure Name Priority Date/Time Associated Diagnosis Comments ECG 12-LEAD Routine 09/26/2024 8:15 AM EDT SOB (shortness of breath) CARDIAC DEVICE CHECK- REMOTE- MURJ Routine 09/10/2024 11:18 PM EDT CARDIAC DEVICE CHECK- REMOTE- MURJ Routine 07/26/2024 1:03 AM EDT CARDIAC DEVICE CHECK- REMOTE- MURJ Routine 07/22/2024 3:16 PM EDT BASIC METABOLIC PANEL Routine 07/04/2024 7:37 AM EDT Paroxysmal atrial fibrillation (CMS/HCC V24, CMS/HCC V28) from Last 3 Months or Most Recently Relevant to Health Maintenance Results * ECG 12 lead (09/26/2024 8:15 AM EDT) 09/26/2024 7:50 AM EDT us Checo Kee NP ECG ORDERABLES Final Result GEMUSE * Cardiac device check - Remote- MURJ (09/10/2024 11:18 PM EDT) Only the most recent of3 resultswithin the time period is included. Date Time Interrogation Session [id number] CV DEVICE CHECK Type Interrogation Session Remote CV DEVICE CHECK Implantable Pulse Generator Sensor Technician MDT CV DEVICE CHECK Implantable Pulse Generator Type ICD CV DEVICE CHECK Implantable Pulse Generator Model Visia AF MRI VR [id number] CV DEVICE CHECK Implantable Pulse Generator Serial Number [id number] CV DEVICE CHECK Implantable Pulse Generator Implant Date [id number] CV DEVICE CHECK Battery Remaining Longevity 46.0 CV DEVICE CHECK Battery Voltage 2.970 CV D EVICE CHECK Battery HEATER FURNACE Trigger 2.727 CV DEVICE CHECK Battery Status Middle of Service CV DEVICE CHECK Capacitor Charge Time 4.003 CV DEVICE CHECK Vasile Statistic RV Percent Paced 0.23 CV DEVICE CHECK Atrial Tachy Statistic AT/AF [place] Percent 0.10 CV DEVICE CHECK Lead Channel Sensing Intrinsic Amplitude 4.375 CV DEVICE CHECK Lead Channel Setting Sensing Sensitivity 0.30 CV DEVICE CHECK Lead Channel Impedance Value 475 CV DEVICE CHECK Lead Channel Pacing Threshold Amplitude 0.750 CV DEVICE CHECK Lead Channel Pacing Threshold Pulse Width 0.4 CV DEVICE CHECK Lead Channel RV Pacing Threshold Date 2024-09-08 CV DEVICE CHECK Lead Channel Setting Pacing Amplitude 2.000 CV DEVICE CHECK Lead Channel Setting Pacing Pulse Width 0.4 CV DEVICE CHECK Vasile Setting Mode (NBG Code) VVI CV DEVICE CHECK Vasile Setting Lower Rate Limit 40 CV DEVICE CHECK Therapy Statistic Recent Shocks Delivered 0 CV DEVICE CHECK Therapy Statistic Recent Shocks Aborted 0 CV DEVICE CHECK Therapy Statistic Recent ATP Delivered 0 CV DEVICE CHECK RV HV Impedance 68 CV D EVICE CHECK Zone Setting Type Category VF CV DEVICE CHECK Rate 200 CV DEVICE CHECK Therapies ATP During Charging, 35Jx6 CV DEVICE CHECK Zone Setting Status On CV DEVICE CHECK Zone ID 3 CV DEVICE CHECK Zone Setting Type Category VT CV DEVICE CHECK Zone Setting Status Off CV DEVICE CHECK Zone ID 4 CV DEVICE CHECK Zone Setting Type Category VT CV DEVICE CHECK Therapies Burst(3), 35Jx3 CV D EVICE CHECK Zone Setting Status Off CV DEVICE CHECK Zone ID 5 CV DEVICE CHECK Zone Setting Type Category VT CV DEVICE CHECK Rate 150 CV DEVICE CHECK Rate 150 CV DEVICE CHECK Zone Setting Status ENABLED CV DEVICE CHECK Zone ID 6 CV DEVICE CHECK Date of Service 2024-10-21 CV DEVICE CHECK Anatomical Region Laterality Modality Device Interroga tion 09/08/2024 3:53 AM EDT Impressions 09/10/2024 2:27 PM EDT Normal Remote: No Events * Normal Device Function * Alerts or events: None * Battery: , * Sensing, impedance and thresholds reviewed * Programmed parameters reviewed * Presenting rhythm reviewed * Heart Rate Histograms reviewed * No significant changes noted Normal Remote: No Events * Normal Device Function * Alerts or events: None * Battery: OK, 3.83 yrs * Sensing, impedance and thresholds reviewed * Programmed parameters reviewed * Presenting rhythm reviewed * Heart Rate Histograms reviewed * No significant changes noted Additional Notes: Stable burden AF Heart Failure Diagnostic: Stable * Heart failure diagnostics assessed through the device * Status: Stable * No overt HF present Narrative Procedure Note Danny Brooke MD - 09/10/2024 IMPRESSION: Normal Remote: No Events * Normal Device Function * Alerts or events: None * Battery: , * Sensing, impedance and thresholds reviewed * Programmed parameters reviewed * Presenting rhythm reviewed * Heart Rate Histograms reviewed * No significant changes noted Normal Remote: No Events * Normal Device Function * Alerts or events: None * Battery: OK, 3.83 yrs * Sensing, impedance and thresholds reviewed * Programmed parameters reviewed * Presenting rhythm reviewed * Heart Rate Histograms reviewed * No significant changes noted Additional Notes: Stable burden AF Heart Failure Diagnostic: Stable * Heart failure diagnostics assessed through the device * Status: Stable * No overt HF present us Danny Brooke MD CV IMPLANTABLE CARDIAC DEV ICE PROCEDURES Final Result * (ABNORMAL) Basic metabolic panel (07/04/2024 7:37 AM EDT) Pathologist [facility] Glucose 101(H) 70 - 99 mg/dL [facility] [...] - 07/05/2024 1:06 AM EDT Performed at: 01 - [facility] [id number] Paediatric Surgeon: Lupe Mckeon MD, Phone: [phone] us Checo Kee NP LAB BLOOD ORDERABLES Final Resul t [facility] 1 from Last 3 Months or Most Recently Relevant to Health Maintenance Insurance [employer] Care Teams Emblem Fuser Tender Relationship Specialty Start Date End Date Surya Aden MD [address] [place] [phone] PCP - General Internal Medicine 09/26/24
[2024-10-09 06:22] LABS: MANUAL DIFF FLAG NO
[2024-10-09 07:20] LABS: Basophils Absolute Auto 0.1 X10*3/uL (0.0-0.2); Basophils Percent Auto 1.3 % (0-2); Eosinophils Absolute Auto 0.2 X10*3/uL (0.0-0.4); Eosinophils Percent Auto 4.4 % (0-4); Hemoglobin 13.1 g/dl (12.0-16.0); Imm Gran Abs Auto 0.01 X10*3/uL (0.00-0.03); Imm Gran Pct Auto 0.2 % (0.0-0.4); Lymphocytes Percent Auto 43.8 % (20-40); Mean Corpuscular HGB Conc 34.5 g/dl (31.0-35.0); Mean Corpuscular Hemoglobin 32.3 pg (27.0-33.0); Mean Corpuscular Volume 93.6 fL (80.0-98.0); Mean Platelet Volume 9.7 fL (9.4-12.3); Monocytes Absolute Auto 0.6 X10*3/uL (0.1-1.2); Monocytes Percent Auto 12.7 % (2-11); Neutrophils Absolute Auto 1.7 x10*3/uL (2.0-8.3); Neutrophils Percent Auto 37.6 % (45-73); Platelet Count 172 X10*3/uL (160-400); Red Blood Count 4.06 X10*6/uL (4.20-5.50); Red Cell Distribution Width 13.5 % (11.0-16.0); White Blood Count 4.6 X10*3/uL (4.8-10.8)
[2024-10-09 07:34] LABS: Estimated Average Glucose 114 mg/dL; Hemoglobin A1c % 5.6 % (<6.0)
[2024-10-09 07:45] LABS: Alanine Aminotransferase 24 U/L (0-31); Albumin Level 4.2 g/dL (3.5-5.0); Alkaline Phosphatase 65 U/L (39-117); Anion Gap 12 (12-20); Aspartate Amino Transferase 40 U/L (5-31); Bilirubin Direct 0.2 mg/dL (0.0-0.5); Bilirubin Total 0.5 mg/dL (0.0-1.0); Blood Urea Nitrogen 14 mg/dL (9-16); C Reactive Protein 0.29 mg/dL (< or = 0.50); Carbon Dioxide 30 mmol/L (22-29); Chloride 97 mmol/L (96-108); Cholesterol 148 mg/dL (<200); Estimated Glomerular Filt Rate > 60; Glucose Fasting 103 mg/dL (60-99); HDL Cholesterol 55 mg/dL (>40); LDL Cholesterol Calculated 72 mg/dL (<100); Magnesium 2.2 mg/dL (1.6-2.6); Potassium 5.1 mmol/L (3.3-5.1); Sodium 134 mmol/L (135-145); Total Protein 7.7 g/dL (6.5-8.0); Triglycerides 108 mg/dL (<150)
[2024-10-09 08:04] LABS: TSH reflex Free T4 2.01 uIU/mL (0.32-4.0)
[2024-10-09 08:17] LABS: Erythrocyte Sedimentation Rate 23 MM/HR (0-20); Folate 14.5 ng/mL (> or = 4.0); Vitamin B12 525 pg/mL (200-900)
== END 2024-10-09 06:03 | disposition home or self-care (01) ==
LOC: HO.XRAY 06:02
PROVIDERS: PCP Physician Assistant Medical; Visit Provider Physician Assistant Medical
DX: R05.3 Chronic cough (principal); J84.9 Interstitial pulmonary disease, unspecified; J40 Bronchitis, not specified as acute or chronic; R73.03 Prediabetes; Z13.30 Encounter for screening examination for mental health and behavioral disorders, unspecified; Z13.31 Encounter for screening for depression
CPT/HCPCS: 36415; 71046; 80053; 80061; 80076; 82248; 82306; 82607; 82746; 83036; 83735; 84443; 85025; 85652; 86140; 96127; 99212

== ENCOUNTER → 2024-10-09 06:22 | Outpatient (BNV) | payer MEDICARE, SELFPAY | PROVIDERS: PCP Physician Assistant Medical; Visit Provider Radiology Diagnostic Radiology | DX: R05.9 Cough, unspecified (principal); Z87.891 Personal history of nicotine dependence | CPT/HCPCS: 71046 ==

== ENCOUNTER 2024-10-09 14:55 | Outpatient (AMB) | payer MEDICARE, SELFPAY ==
--- NOTE | 2024-10-09 14:56 | A.OFFPC_ITS ---
Vital Signs 10/09/24 14:57 Height 5 ft 3.75 in Weight 160 lb BMI 27.7 BP 151/68 H Respiration 16 Pulse 60 Pulse Source Pulse Oximeter Temp 98.2 F Temp Source Temporal Artery Scan Pulse Oximetry (%) 97 Oxygen Delivery Method Room Air Intake Visit Reasons: Cough Case Management Assistant Required: No Accompanied by: Self / Same As Patient Allergies Sulfa (Sulfonamide Antibiotics) Allergy (Unknown, Verified 10/09/24 15:46) hives Medication List - Last Reconciled 10/09/24 by Tana Escobar PA-C albuterol sulfate 90 mcg/actuation 1 puff inhalation QID apixaban (Eliquis) 5 mg PO BID aspirin (Ecotrin Low Strength) 81 mg PO DAILY azithromycin For 250 mg dose pack: take 500 mg today (day 1), then 250 mg for 4 days (days 2-5) PO biotin mcg PO carvedilol 12.5 mg PO BID cholecalciferol (vitamin D3) 50 mcg PO DAILY dextromethorphan-guaifenesin 5-50 mg/5 mL (Robitussin Cough-Chest Congestion DM) 20 mL PO Q6H estradiol (Estring) 1 vaginal [id number] ezetimibe 10 mg PO DAILY fexofenadine (Maude Allergy) 180 mg PO DAILY fluoride (sodium) 1.1% (PreviDent 5000 Dry Mouth) dental DIRECTED furosemide 20 mg PO DAILY krill oil mg PO mvyrpptznvql-nemh-okbgi acid 18-400 mg-mcg (Centrum) 1 tab PO DAILY nitroglycerin (Nitrostat) 0.4 mg sublingual Q5M PRN omeprazole 20 mg PO DAILY prednisone 40 mg (2 x 20 mg) PO DAILY 5 days ramipril 10 mg PO DAILY rosuvastatin 40 mg PO DAILY zafirlukast 20 mg PO BID Tobacco use date assessed: 10/09/24 Fall risk assessment: No Falls in past year Last assessed Fall Risk: 10/09/24 Dental Screening Dental Screen Date: 10/09/24 Did you have a dental visit in the last 12 months?: Yes Did you have a dental problem in the last 6 months where you did not have access to dental care?: No Was dental information given to patient?: Patient has dentist HPI Cough HPI Details The patient is a 79-year-old female presenting with a persistent cough. The cough began around the start of pollen season and worsened significantly on a recent Sunday, becoming chronic and productive. The patient reports a history of smoking for approximately 10 years, which may have contributed to her chronic lung disease. The patient has been experiencing difficulty sleeping due to the cough, which has been severe enough to prevent her from lying down comfortably. She has been using cgfb-rmh-ckdumcr medications like Mucinex and Robitussin DM, and previously used Robitussin with Codeine, which provided temporary relief. The patient has been advised to see a knuckle bender for further evaluation of her chronic lung condition. The patient has a history of chronic insufficial lung disease, as indicated by her chest x-ray, and multiple old compression fractures in her back. She also has an old tendon tear in her right shoulder and no deltoid muscle in her left shoulder. Her recent lab results indicate pre-diabetes with a fasting glucose of 103 mg/dL and an A1c of 5.6%. Social History - Smoking history: Smoked for approximat [place] 10 years, ceased smoking at age 33. [facility] Medical History (Updated 10/09/24 @ 15:52 by Tana Escobar PA-C) Prediabetes Chronic interstitial lung disease History of smoking Chronic cough Overweight (BMI 25.0-29.9) Bronchitis History of mammogram (~11/23/23) Breast cancer, left Squamous cell carcinoma of skin GERD (gastroesophageal reflux disease) Hyperlipidemia Hypertension Paroxysmal atrial fibrillation Congestive heart failure Coronary artery disease History of heart attack Surgical History History of colonoscopy (~12/20/18) History of appendectomy History of left knee replacement H/O lumpectomy Family History Father Stroke Mother Ovarian cancer Social History Housing: House Alcohol intake: current Alcohol intake frequency: a few times a week Patient Tobacco Use Status: Former Tobacco user service: No Current occupational status: retired Cognitive needs: No Hearing needs: No Vision needs: Yes (rx glasses) Questionnaire PHQ-9 Over the last 2 weeks, how often have you been bothered by any of the following problems? 1. Little interest or pleasure in doing things: not at all 2. Feeling down, depressed, or hopeless: not at all 3. Trouble falling or staying asleep, or sleeping too much: not at all 4. Feeling tired or having little energy: not at all 5. Poor appetite or overeating: not at all 6. Feeling bad about yourself - or that you are a failure or have let yourself or your family down: not at all 7. Trouble concentrating on things, such as reading the newspaper or watching television: not at all 8. Moving or speaking so slowly that other people could have noticed. Or the opposite - being so fidgety or restless that you have been moving around a lot more than usual: not at all 9. Thoughts that you would be better off or of hurting yourself in some way: not at all Total score: 0 Depression Screening Interpretation: Negative Depression Screening Done: Yes 53944 - PHQ-9 Billing: Yes Source: Developed by Drs. Mateo Worrell, Tamera Palacios, Raphael Lechuga and colleagues, with an educational ranjit from [employer]. Thrive Questionnaire Date Thrive assessed: 10/09/24 I am a: Patient What is your living situation today?: I have a steady place to live Within the past 12 months, did the food you bought not last and you didn't have the money to get more?: Never true Within the past 12 months, did you worry whether your food would run out before you got money to buy more?: Never true Do you have trouble paying for medicines?: No Do you have trouble getting transportation to medical appointments?: No Do you have trouble paying your heating and electricity bill?: No Do you have trouble taking care of your child, family member or friend?: No Do you have trouble with day-to-day activities such as bathing, preparing meals, shopping, managing finances, etc.?: No Are you currently unemployed and looking for a job?: No Are you interested in more education?: No Please select the resources that you would like help with: None THRIVE Score: 0 AUDIT C Alcohol Use Questionnaire (AUDIT-C) 1. How often do you have a drink containing alcohol?: 2-3 times a week 2. How many drinks containing alcohol do you have on a typical day when you are drinking?: 1 or 2 3. How often do you have six or more drinks on one occasion?: Never Total Score: 3 Score Reviewed/Action Taken: No EZRA-7 AMB Questionnaire EZRA-7 Date EZRA - 7 assessed: 10/09/24 Feeling nervous, anxious, or on edge: 0 = Not at all Not being able to stop or control worryin = Not at all Worrying too much about different things: 0 = Not at all Trouble relaxin = Not at all Being so restless that it is hard to sit still: 0 = Not at all Becoming easily annoyed or irritable: 0 = Not at all Feeling afraid as if something awful might happen: 0 = Not at all Total EZRA-7 score (0-4 normal; 5-9 mild; 10-14 moderate; 15-21 severe): 0 Source: Developed by Drs. Mateo Worrell, Tamera Palacios, Raphael Lechuga and colleagues, with an educational ranjit from [employer]. EZRA-7 Assessment Billing EZRA-7 Assessment Tool: EZRA-7 Assessment 66149 Review of Systems Const Details: - Respiratory: Reports chronic cough, productive of mucus, and dyspnea. Denies hemoptysis. - Musculoskeletal: Reports old compression fractures and tendon tear in right shoulder. Physical exam (Primary Care) Vital Signs: Last Vital Signs Temp 98.2 F 10/09/24 14:57 Pulse 60 10/09/24 14:57 Resp 16 10/09/24 14:57 BP 151/68 H 10/09/24 14:57 Pulse Ox 97 10/09/24 14:57 Oxygen Delivery Method Room Air 10/09/24 14:57 BMI result Body Mass Index 27.7 Tobacco/Smoking Status: Tobacco use Status Tobacco use date assessed 10/09/24 10/09/24 15:03 Patient Tobacco Use Status Former Tobacco user 10/09/24 15:19 PHQ-9: PHQ-9 Score PHQ-9: Total score 0 10/09/24 15:03 Depression Screening Interpretation: Negative Thrive Assessment: Date of Thrive Assessment Date Thrive assessed 10/09/24 10/09/24 15:03 Const Other: Appearance: Alert. Oriented X3. No acute distress. Head: Normal external exam. Normocephalic. Atraumatic. Eyes: Pupils are equal, round, and reactive to light. Extraocular movements intact. Conjunctiva and sclera normal. Eyelids normal. Ears: External auditory canal normal. Tympanic membranes normal. Throat: Pharynx normal. Uvula midline. Moist mucous membranes. Neck: Normal inspection. Neck supple. Full range of motion. No adenopathy. Th yroid Normal. No meningeal signs. No neck mass noted. Cardiovascular: Normal heart rate and rhythm. Heart sound normal. No murmurs noted. Pulses normal throughout. Respiratory: No respiratory distress. Painless inspiration. Breath sounds normal. Wheezing noted when coughing up phlegm. No accessory muscle usage noted or decreased air movement noted. Back: Full range of motion noted. Skin: Skin warm and dry. Normal skin color. Normal skin turgor. No rashes/lesions/lacerations noted. Extremities: No lower extremity edema. Extremities exhibit normal range of motion. Extremities nontender. Neuro: Oriented X 3. No motor deficit. No sensory deficit. Reflexes normal. Results Reviewed Results Reviewed: - Labs: Fasting glucose 103 mg/dL, A1c 5.6% indicating pre-diabetes. - Imaging: Chest x-ray shows chronic insufficial lung disease without acute airspace disease. Coding Level of Care Code Est Pt Level 4 (64979) Complex EM visit Add On G2211 Diagnoses Chronic interstitial lung disease J84.9 Chronic cough R05.3 Bronchitis J40 Prediabetes R73.03 Additional Codes PHQ-9 - 74922 - PHQ-9 Billing: Yes ([id number]) EZRA-7 Assessment Billing - EZRA-7 Assessment Tool: EZRA-7 Assessment 50742 ([id number]) Assessment & Plan Assessment & Plan (1) Chronic interstitial lung disease: Code(s): J84.9 - Interstitial pulmonary disease, unspecified Category: Medical Plan: The patient will be referred to a knuckle bender for further evaluation and management of COPD. A prescription for a Z-Huang (azithromycin) was provided to address any potential bacterial exacerbation. The patient was advised to continue using iawh-ijf-fmdtpyu cough medications such as Robitussin DM. Condition is chronic and stable will continue to monitor. (2) Chronic cough: Code(s): R05.3 - Chronic cough Category: Medical Plan: The patient was advised to continue using Mucinex to help with mucus clearance. A short course of prednisone was prescribed to reduce airway inflammation. Condition is chronic and stable continue to monitor. (3) Bronchitis: Code(s): J40 - Bronchitis, not specified as acute or chronic Category: Medical Plan: The patient was advised to continue using Mucinex to help with mucus clearance. A short course of prednisone was prescribed to reduce airway inflammation. Condition is chronic and stable continue to monitor. (4) Prediabetes: Code(s): R73.03 - Prediabetes Category: Medical Plan: The patient was informed about her pre-diabetic status and advised to monitor her dietary sugar intake. Regular follow-up appointments were recommended to monitor blood glucose levels. Condition is chronic and stable will continue to monitor. Plan Plan Patient was informed and verbally consented to the use of an ambient scribe for clinic note documentation during this visit. 1. Chronic Obstructive Pulmonary Disease (Copd) The patient will be referred to a knuckle bender for further evaluation and management of COPD. A prescription for a Z-Huang (azithromycin) was provided to address any potential bacterial exacerbation. The patient was advised to continue using wktm-pzf-nnvwlrs cough medications such as Robitussin DM. 2. Chronic Bronchitis The patient was advised to continue using Mucinex to help with mucus clearance. A short course of prednisone was prescribed to reduce airway inflammation. 3. Pre-Diabetes The patient was informed about her pre-diabetic status and advised to monitor her dietary sugar intake. Regular follow-up appointments were recommended to monitor blood glucose levels. I discussed with the patient the chronic nature of her lung disease and the importance of seeing a knuckle bender for specialized care. We reviewed the use of a Z-Huang to address any bacterial component of her cough and the continuation of rono-woz-mbesnaa cough medications. I also explained her pre-diabetic status and the need for dietary modifications to manage her blood glucose levels. Follow-up appointments were recommended to monitor her condition and adjust treatment as necessary. Medications: New azithromycin For 250 mg dose pack: take 500 mg today (day 1), then 250 mg for 4 days (days 2-5) PO 6 tabs 0RF prednisone 40 mg (2 x 20 mg) PO DAILY 10 tabs 0RF 5 days Refilled dextromethorphan-guaifenesin 5-50 mg/5 mL (Robitussin Cough-Chest Congestion DM) 20 mL PO Q6H 118 mL 0RF cough Patient Instructions: - Take the prescribed Z-Huang as directed. - Continue using uvml-tnn-vwzpsmd cough medications like Robitussin DM. - Monitor dietary sugar intake to manage pre-diabetes. - Schedule an appointment with a knuckle bender for further evaluation. - Follow up with regular appointments to monitor blood glucose levels.
[2024-10-09 14:57] VITALS: BP 151/68; PULSE 60; RESP 16; TEMP 36.8; O2SAT 97; BMI 27.7
--- OUTSIDE RECORDS SUMMARY | 2024-10-09 16:14 | XMS_ITS | Clinical Summary ---
Author Organization [address] [place] [address] [place] [phone] Phone Care Team Providers Care Chemical Project Engineer Name Role Phone Surya Aden MD Primary Care Provider [phone] Allergies Active Allergy Reactions Criticality Noted Date Comments Sulfa (Sulfonamide Antibiotics) 11/2020 [place] Pollen-Rough Pigweed 02/06/2022 Pigweed Medications apixaban (Eliquis) [...] testing in 2020 was positive for APC [id number] variant-likely benign Last Assessment & Plan: No [...] failure with mildly re duced ejection fraction ([facility] V24, [facility] V28) 10/07/2021 Overview (03/13/2024): - [...] 2018 - More recently was seen at [facility] ER on 07/09/2023 with persistent A-fib for 48 hours-because she had been on uninterrupted Eliquis, was cardioverted at [facility] ER -On Eliquis for CVA prophylaxis Assessment [...] 02/28/2021 Overview (03/13/2024): - Status post anteroseptal [place] over 24 years ago with angioplasty and [...] Description 09/26/2024 7:40 AM EDT Office Visit [facility] [address] [place] [address] Checo Kee NP SOB (shortness of breath) (Primary Dx); Mixed hyperlipidemia; Hypertension, unspecified type; Coronary artery disease involving false pass coronary artery of false pass heart without angina pectoris; Paroxysmal atrial fibrillation (CMS/HCC V24, CMS/HCC V28); Heart failure with mildly reduced ejection fraction (CMS/HCC V24, CMS/HCC V28); VT (ventricular tachycardia) (CMS/HCC V24, CMS/HCC V28) 09/19/2024 Telephone [facility] [address] [address] [place] [address] Magda Calvo MD Med Refill 09/10/2024 11:20 PM EDT Ancillary Procedure [facility] [address] [place] [address] 08/29/2024 Telephone [facility] [address] [place] [address] Magda Calvo MD Med Refill (Incoming fax [facility] COREG 12.5 mg ) 07/26/2024 1:05 AM EDT Ancillary Procedure [facility] [address] [place] [address] 07/22/2024 3:20 PM EDT Ancillary Procedure [facility] [address] [place] [address] from Last 3 Months Surgical History Surgery Date Site/Laterality Comments INSERT / REPLACE / REMOVE PACEMAKER Medical History Medical History Date Comments Hypertension Hyperlipidemia Atrial fibrillation (CMS/HCC V24, CMS/HCC V28) Cardiomyopathy (CMS/HCC V24, CMS/[facility] V28) Coronary artery disease Ventricular tachycardia (CMS/[facility] V24, CMS/[facility] V2 8) Family History Medical [...] Description 11/18/2024 9:30 AM EDT Ancillary Procedure [facility] [address] [facility] [address] [place] [address] 11/24/2024 8:15 AM EDT Appointment [facility] [address] [address] Health Maintenance Due Date Last [...] this topic Medical Devices Implanted Type Area Visual Presentation Manager Device Identifier Shelf Expiration Date Model / Serial / Lot Medt-Card Visia Af Mri Vr [id number] Implanted:06/23 (Quantity not on file) Cardiac ICD [employer] - CARDIAC RHYTH-CRDM VISIA AF MRI VR [id number] / [id number] / Procedures Procedure Name Priority Date/Time Associated [...] period is included. Date Time Interrogation Session [id number] CV DEVICE CHECK Type Interrogation Session Remote CV DEVICE CHECK Implantable Pulse Generator Visual Presentation Manager MDT CV DEVICE CHECK Implantable Pulse Generator Type ICD CV DEVICE CHECK Implantable Pulse Generator Model Visia AF MRI VR [id number] CV DEVICE CHECK Implantable Pulse Generator Serial Number [id number] CV DEVICE CHECK Implantable Pulse Generator Implant Date [id number] CV DEVICE CHECK Battery Remaining Longevity 46.0 CV DEVICE CHECK Battery Voltage 2.970 CV D EVICE CHECK Battery WIND TUNNEL ENGINEER Trigger 2.727 CV DEVICE CHECK Battery Status Middle of Service CV DEVICE CHECK Capacitor Charge Time 4.003 CV DEVICE CHECK Vasile Statistic RV Percent Paced 0.23 CV DEVICE CHECK Atrial Tachy Statistic AT/AF [place] Percent 0.10 CV DEVICE CHECK Lead Channel [...] panel (07/04/2024 7:37 AM EDT) Pathologist [facility] Glucose 101(H) 70 - 99 mg/dL [facility] [...] 1:06 AM EDT Performed at: 01 - [facility] [id number] Graphic Production Artist: Lupe Mckeon MD, Phone: [phone] us Checo Kee NP LAB BLOOD ORDERABLES Final Resul t [facility] 1 from Last 3 Months or Most Recently Relevant to Health Maintenance Insurance [employer] Care Teams Chemical Project Engineer Relationship Specialty Start Date End Date Surya Aden MD [address] [place] [address] PCP - General Internal Medicine 09/26/24
== END 2024-10-09 15:44 | disposition home or self-care (01) ==
LOC: HO.HMCSH 14:55
PROVIDERS: PCP Physician Assistant Medical; Visit Provider Physician Assistant Medical
DX: J84.9 Interstitial pulmonary disease, unspecified (principal); R05.3 Chronic cough; J40 Bronchitis, not specified as acute or chronic; R73.03 Prediabetes

== ENCOUNTER 2024-11-03 10:27 | Outpatient (AMB) | payer MEDICARE, SELFPAY ==
[2024-11-03 10:39] VITALS: BP 162/74; PULSE 62; TEMP 36.7; O2SAT 96; BMI 27.5
--- NOTE | 2024-11-03 10:39 | AM.OFFWIN_ITS ---
Intake Vital Signs 11/03/24 10:39 Height 5 ft 3.75 in Weight 159 lb 4 oz BMI 27.5 BP 162/74 H Blood Pressure Location Rt brachial Position Sitting Pulse 62 Pulse Source Pulse Oximeter Temp 98.1 F Temp Source Oral Pulse Oximetry (%) 96 Oxygen Delivery Method Room Air Intake Visit Reasons: EP persistent, chronic cough Intake Note: Patient presents with a cough, productive phlegm is clear and sticky Patient Tobacco Use Status: Former Tobacco user Laboratory Apparatus Glass Blower Required: No Allergies Sulfa (Sulfonamide Antibiotics) Allergy (Unknown, Verified 10/09/24 15:46) hives Do you need a note to return to daycare/school/sports/work: No HPI HPI Comments History of Present Illness Details 79 y/o Female patient who presents to [facility] in clinic with c/o chronic persistent cough. She has been seen multiple times for this concern - last seen 09/2024 where she was given Prednisone and Zpack. Reports cough resolved then, but symptoms resumed few day ago. She had Chest Xray in September that showed interstitual Lung disease - she is also being followed by Pulmonology. She has an appointment coming up in December. Per Pulmonology Visit Note back in July - it was recommended to use Advair or Breo (LABA/ICS) if cough returns. Pt has PFTs ordered for Sept by PCP. [facility] Medical History (Updated 10/09/24 @ 15:52 by Tana Escobar PA-C) Prediabetes Chronic interstitial lung disease History of smoking Chronic cough Overweight (BMI 25.0-29.9) Bronchitis History of mammogram (~11/23/23) Breast cancer, left Squamous cell carcinoma of skin GERD (gastroesophageal reflux disease) Hyperlipidemia Hypertension Paroxysmal atrial fibrillation Congestive heart failure Coronary artery disease History of heart attack Surgical History History of colonoscopy (~12/20/18) History of appendectomy History of left knee replacement H/O lumpectomy Family History Father Stroke Mother Ovarian cancer Social History Housing: House Alcohol intake: current Alcohol intake frequency: a few times a week Patient Tobacco Use Status: Former Tobacco user service: No Current occupational status: retired Cognitive needs: No Hearing needs: No Vision needs: Yes (rx glasses) Review of Systems Const All systems reviewed & are unremarkable except as noted in HPI and below Physical Exam Vital Signs: Last Vital Signs Temp 98.1 F 11/03/24 10:39 Pulse 62 11/03/24 10:39 BP 162/74 H 11/03/24 10:39 Pulse Ox 96 11/03/24 10:39 Oxygen Delivery Method Room Air 11/03/24 10:39 BMI result Body Mass Index 27.5 Const General: no acute distress Orientation/consciousness: patient oriented x3 HEENT Head: Yes normocephalic Ears: external ears normal and TM abnormal with fluid behind the TM bilateral General nose exam: Normal external nose present Mouth: moist mucous membranes Throat: Yes uvula midline Resp Effort & Inspection: normal respiratory effort Auscultation: no crackles, no rales, no rhonchi and no wheezes Cardio Heart sounds: S1 normal heart sound present and S2 normal heart sound present Neuro General: patient oriented x3 Assessment & Plan Assessment & Plan (1) Chronic interstitial lung disease: Code(s): J84.9 - Interstitial pulmonary disease, unspecified Plan: Ordered Advair F/U with PCP and Pulmonology Medications: New fluticasone propion-salmeterol 45-21 mcg/actuation (Advair HFA) 2 inhalations inhalation BID 12 grams 1RF J84.9 - Interstitial pulmonary disease, unspecified Coding Level of Care Code Est Pt Level 4 (85661) Diagnoses Chronic interstitial lung disease J84.9 Time Spent (min) 20
--- OUTSIDE RECORDS SUMMARY | 2024-11-03 11:11 | XMS_ITS | Clinical Summary ---
Author Organization [facility] Address [address] [place] [address] Care Team Providers Care Road Monkey Name Role Phone Mateo Clements Primary Care Provider [phone] Allergies Active Allergy Reactions Criticality Noted Date [...] every 12 (twelve) hours. 0 Active Biotin 10646 MCG TBDP Take 50,000 Units by mouth. [...] 60 11/28/2019 9:23 AM EDT Temperature 36.6 C (97.8 F) 11/28/2019 9:23 AM EDT Respiratory Rate - - Oxygen Saturation - [...] 1-dose 75+ series) 2021 Influenza Vaccine (#1) 2024 Hepatitis B Vaccines Aged Out No long er eligible based on patient's age to complete this topic RSV Ped < 20 months Aged Out No longe r eligible based on patient's age to complete this topic Care Teams Road Monkey Relationship Specialty Start Date End Date Mateo Clements DO [address] [place] [phone] PCP - General Internal Medicine 11/20/18
--- OUTSIDE RECORDS SUMMARY | 2024-11-03 11:11 | XMS_ITS | Clinical Summary ---
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 Active BIOTIN ORAL Take by mouth. Active CHOLECALCIFEROL, VITAMIN D3, ORAL Take by mouth daily. Active docusate sodium (COLACE) 100 mg capsule Take 100 mg by mouth 2 times daily. Active nitroglycerin (NITROSTAT) 0.[address] 1 TABLET UNDER THE TONGUE EVERY 5 MINS IF NEEDED FOR CHEST PAIN Active omeprazole (PriLOSEC) [address] capsule [...] mouth daily 90 tablet 1 5 Active ezetimibe (ZETIA) 10 mg tablet Take 1 tablet (10 mg total) by mouth 1 (one) time each day. 90 tablet 1 5 Active apixaban (Eliquis) 5 mg tablet Take 1 tablet (5 mg total) by mouth 2 (two) times a day. 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 Last Assessment & Plan: No [...] failure with mildly re duced ejection fraction (CMS/HCC V24, CMS/HCC V28) 10/07/2021 Overview (03/13/2024): - Probably NYHA [...] 2018 - More recently was seen at [facility] ER on 07/09/2023 with persistent A-fib for 48 hours-because she had been on uninterrupted Eliquis, was cardioverted at [facility] ER -On Eliquis for CVA prophylaxis [...] 02/28/2021 Overview (03/13/2024): - Status post anteroseptal [place] over 24 years ago with angioplasty and [...] Encounters Date Type Department Care Team Description 10/27/2024 7:15 AM EDT Ancillary Procedure [facility] [address] [place] [address] 10/17/2024 Telephone [facility] [address] [place] [address] Magda Vyas MD Concerns with Device 09/26/2024 7:40 AM EDT Office Visit [facility] [address] [facility] [address] [place] [address] Checo Kee NP SOB (shortness of breath) (Primary Dx); Mixed hyperlipidemia; Hypertension, unspecified type; Coronary artery disease involving [place] coronary artery of [place] heart without angina pectoris; Paroxysmal atrial fibrillation (CMS/HCC V24, CMS/HCC V28); Heart failure with mildly reduced ejection fraction (CMS/HCC V24, CMS/HCC V28); VT (ventricular tachycardia) (CMS/HCC V24, CMS/HCC V28) 09/19/2024 Telephone [facility] [address] [place] [address] Magda Vysa MD Med Refill 09/10/2024 11:20 PM EDT Ancillary Procedure [facility] [address] [place] [id number] 08/29/2024 Telephone [facility] [address] [facility] [address] [place] [phone] Magda Vyas MD Med Refill (Incoming fax [facility] COREG 12.5 mg ) from Last 3 Months Surgical History Surgery Date Site/Laterality Comments INSERT / REPLACE / REMOVE PACEMAKER Medical History Medical History Date Comments Hypertension Hyperlipidemia Atrial fibrillation ([facility] V24, CMS/[facility] V28) Cardiomyopathy (CMS/HCC V24, CMS/[facility] V28) Coronary artery disease Ventricular tachycardia (CMS/HCC V24, CMS/[facility] V2 8) Family History Medical History Relation [...] Description 11/18/2024 9:30 AM EDT Ancillary Procedure [facility] [address] [facility] [address] [place] [id number] 11/24/2024 8:15 AM EDT [facility]ointment [facility] [address] [phone] Health Maintenance Due Date Last [...] 2023 02/16/2021, 07/05/2020, 06/12/2020 Influenza Vaccine (#1) 2024 , 12/27/2021, 03/23/2021, Additional history exists Hypertension/CHF/CAD Annual BMP Blood Test 07/04/2025 07/04/2024 DTaP,Tdap,and Td Vaccines (3 - Td or Tdap) 10/21/2034 10/21/2024, 12/30/2014 Pneumococcal Vaccine: 50+ Years Completed 03/03/2019, 01/26/2018, [...] this topic Medical Devices Implanted Type 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 Device Identifier Shelf Expiration Date Model / Serial / Lot Medt-Card Visia Af Mri Vr [id number] Implanted:06/23 (Quantity not on file) Cardiac ICD [employer] - CARDIAC RHYTH-CRDM VISIA AF MRI VR [id number] / [id number] / Procedures Procedure Name Priority Date/Time Associated Diagnosis Comments CARDIAC DEVICE CHECK- REMOTE- MURJ Routine 10/27/2024 7:10 AM EDT ECG 12-LEAD Routine 09/26/2024 8:15 AM EDT SOB (shortness of breath) CARDIAC DEVICE CHECK- REMOTE- MURJ Routine 09/10/2024 11:18 PM EDT BASIC METABOLIC PANEL Routine 07/04/2024 7:37 AM EDT Paroxysmal atrial fibrillation (CMS/HCC V24, CMS/HCC V28) from Last 3 Months or Most Recently Relevant to Health Maintenance Results * Cardiac device check - Remote- MURJ (10/27/2024 7:10 AM EDT) Only the most recent of2 resultswithin the time period is included. 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 MDT CV DEVICE CHECK Implantable Pulse Generator Type ICD CV DEVICE CHECK Implantable Pulse Generator Model Visia AF MRI VR [id number] CV DEVICE CHECK Implantable Pulse Generator Serial Number [id number] CV DEVICE CHECK Implantable Pulse Generator Implant Date [id number] CV DEVICE CHECK Battery Remaining Longevity 45.0 CV DEVICE CHECK Battery Voltage 2.970 CV D EVICE CHECK Battery WORKERS COMPENSATION ADJUSTER Trigger 2.727 CV DEVICE CHECK Battery Status Middle of Service CV DEVICE CHECK Capacitor Charge Time 4.083 CV DEVICE CHECK Vasile Statistic RV Percent Paced 0.01 CV DEVICE CHECK Atrial Tachy Statistic AT/AF [place] Percent 0.00 CV DEVICE CHECK Lead Channel Sensing Intrinsic Amplitude 5.750 CV DEVICE CHECK Lead Channel Setting Sensing Sensitivity 0.30 CV DEVICE CHECK Lead Channel Impedance Value 608 CV DEVICE CHECK Lead Channel Pacing Threshold Amplitude 0.750 CV DEVICE CHECK Lead Channel Pacing Threshold Pulse Width 0.4 CV DEVICE CHECK Lead Channel RV Pacing Threshold Date 2024-10-17 CV DEVICE CHECK Lead Channel Setting Pacing [...] 0 CV DEVICE CHECK RV HV Impedance 73 CV D EVICE CHECK Zone Setting Type [...] Anatomical Region Laterality Modality Device Interroga tion 10/17/2024 4:39 PM EDT Impressions 10/27/2024 5:46 AM EDT Normal Remote: No Events * Normal Device Function * Alerts or events: None * Battery: OK, 3.75 yrs * Sensing, impedance and thresholds reviewed * Programmed parameters reviewed * Presenting rhythm reviewed * Heart Rate Histograms reviewed * No significant changes noted Additional Notes: Patient initiated transmission. See Epic encounter 10/17/24 Heart Failure Diagnostic: Stable * Heart failure diagnostics assessed through the device * Status: Stable * No overt HF present Narrative Procedure Note Danny Brooke MD - 10/27/2024 IMPRESSION: Normal Remote: No Events * Normal Device Function * Alerts or events: None * Battery: OK, 3.75 yrs * Sensing, impedance and thresholds reviewed * Programmed parameters reviewed * Presenting rhythm reviewed * Heart Rate Histograms reviewed * No significant changes noted Additional Notes: Patient initiated transmission. See Epic encounter10/17/24 Heart Failure Diagnostic: Stable * Heart failure diagnostics assessed through the device * Status: Stable * No overt HF present us Danny Brooke MD CV IMPLANTABLE CARDIAC DEV ICE PROCEDURES Final Result * ECG 12 lead (09/26/2024 8:15 AM EDT) Ventricular Rate ECG 54 BPM GEMUSE Atrial Rate 54 BPM GEMUSE P-R Interval 182 ms GEMUSE QRS Duration 84 ms GEMUSE Q-T Interval 418 ms GEMUSE QTc 396 ms GEMUSE P Wave [place] 81 degrees GEMUSE R [place] 21 degrees GEMUSE T [place] 75 degrees GEMUSE ECG Interpretation Sinus bradycardia Low voltage QRS Inferior infarct (cited on or before 22-DEC-2015) Cannot rule out Anterior infarct , age undetermined When compared with ECG of 09-JUL-2023 12:25, Minimal criteria for Anterior infarct are now Present Confirmed by MAGDA VYAS ([id number]) on 10/17/2024 4:14:20 PM GEMUSE 09/26/2024 7:50 AM EDT 10/17/2024 4:14 PM EDT us Checo Kee NP ECG ORDERABLES Edited Result - Final GEMUSE * (ABNORMAL) Basic metabolic panel (07/04/2024 7:37 AM EDT) Pathologist [facility] Glucose 101(H) 70 - 99 mg/dL [facility] [...] - 07/05/2024 1:06 AM EDT Performed at: - [facility] [address] [id number] Fleet Salesperson: Lupe Mckeon MD, Phone: [phone] us Checo Kee [facility] BLOOD ORDERABLES Final Resul t [facility] 1 from Last 3 Months or Most Recently Relevant to Health Maintenance Insurance [employer] [place] [employer] Care Teams 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
== END 2024-11-03 11:56 | disposition home or self-care (01) ==
PROVIDERS: PCP Physician Assistant Medical; Visit Provider Nurse Practitioner Family
DX: J84.9 Interstitial pulmonary disease, unspecified (principal)

== ENCOUNTER → 2024-11-03 10:27 | Outpatient (BNVA) | payer MEDICARE, SELFPAY | PROVIDERS: PCP Physician Assistant Medical; Visit Provider Nurse Practitioner Family | DX: J84.9 Interstitial pulmonary disease, unspecified (principal) | CPT/HCPCS: 99212 ==

== ENCOUNTER 2025-02-23 09:24 | Outpatient (AMB) | payer MEDICARE, SELFPAY ==
--- NOTE | 2025-02-23 09:24 | A.OFFPC_ITS ---
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: No Accompanied by: Self / Same As Patient Allergies Sulfa (Sulfonamide Antibiotics) Allergy (Unknown, Verified 02/23/25 09:25) hives Tobacco use date assessed: 10/09/24 Dental Screening Dental Screen Date: 10/09/24 [facility] Medical History Prediabetes Chronic interstitial lung disease History of smoking Chronic cough Overweight (BMI 25.0-29.9) Bronchitis History of mammogram (~11/23/23) Breast cancer, left Squamous cell carcinoma of skin GERD (gastroesophageal reflux disease) Hyperlipidemia Hypertension Paroxysmal atrial fibrillation Congestive heart failure Coronary artery disease History of heart attack Surgical History History of colonoscopy (~12/20/18) History of appendectomy History of left knee replacement H/O lumpectomy Family History Father Stroke Mother Ovarian cancer Social History Housing: House Alcohol intake: current Alcohol intake frequency: a few times a week Patient Tobacco Use Status: Former Tobacco user service: No Current occupational status: retired Cognitive needs: No Hearing needs: No Vision needs: Yes (rx glasses) Questionnaire PHQ-9 Over the last 2 weeks, how often have you been bothered by any of the following problems? 1. Little interest or pleasure in doing things: not at all 2. Feeling down, depressed, or hopeless: not at all 3. Trouble falling or staying asleep, or sleeping too much: not at all 4. Feeling tired or having little energy: not at all 5. Poor appetite or overeating: not at all 6. Feeling bad about yourself - or that you are a failure or have let yourself or your family down: not at all 7. Trouble concentrating on things, such as reading the newspaper or watching television: not at all 8. Moving or speaking so slowly that other people could have noticed. Or the opposite - being so fidgety or restless that you have been moving around a lot more than usual: not at all 9. Thoughts that you would be better off or of hurting yourself in some way: not at all Total score: 0 Depression Screening Interpretation: Negative Depression Screening Done: Yes 74800 - PHQ-9 Billing: Yes Source: Developed by Drs. Mateo Worrell, Tamera Palacios, Raphael Lechuga and colleagues, with an educational ranjit from [employer]. Thrive Questionnaire Date Thrive assessed: 10/09/24 I am a: Patient What is your living situation today?: I have a steady place to live Within the past 12 months, did the food you bought not last and you didn't have the money to get more?: Never true Within the past 12 months, did you worry whether your food would run out before you got money to buy more?: Never true Do you have trouble paying for medicines?: No Do you have trouble getting transportation to medical appointments?: No Do you have trouble paying your heating and electricity bill?: No Do you have trouble taking care of your child, family member or friend?: No Do you have trouble with day-to-day activities such as bathing, preparing meals, shopping, managing finances, etc.?: No Are you currently unemployed and looking for a job?: No Are you interested in more education?: No Please select the resources that you would like help with: None THRIVE Score: 0 AUDIT C Alcohol Use Questionnaire (AUDIT-C) 1. How often do you have a drink containing alcohol?: 2-3 times a week 2. How many drinks containing alcohol do you have on a typical day when you are drinking?: 1 or 2 3. How often do you have six or more drinks on one occasion?: Never Total Score: 3 Score Reviewed/Action Taken: No EZRA-7 AMB Questionnaire EZRA-7 Date EZRA - 7 assessed: 10/09/24 Feeling nervous, anxious, or on edge: 0 = Not at all Not being able to stop or control worryin = Not at all Worrying too much about different things: 0 = Not at all Trouble relaxin = Not at all Being so restless that it is hard to sit still: 0 = Not at all Becoming easily annoyed or irritable: 0 = Not at all Feeling afraid as if something awful might happen: 0 = Not at all Total EZRA-7 score (0-4 normal; 5-9 mild; 10-14 moderate; 15-21 severe): 0 Source: Developed by Drs. Mateo Worrell, Tamera Palacios, Raphael Lechuga and colleagues, with an educational ranjit from [employer]. EZRA-7 Assessment Billing EZRA-7 Assessment Tool: EZRA-7 Assessment 17168 Physical exam (Primary Care) Vital Signs: Last Vital Signs Temp 97.8 F 02/23/25 09:25 Pulse 62 02/23/25 09:25 Resp 16 02/23/25 09:25 BP 157/70 H 02/23/25 09:25 Pulse Ox 97 02/23/25 09:25 Oxygen Delivery Method Room Air 02/23/25 09:25 BMI result Body Mass Index 28.5 Tobacco/Smoking Status: Tobacco use Status Tobacco use date assessed 10/09/24 02/23/25 09:26 Patient Tobacco Use Status Former Tobacco user 02/23/25 09:26 PHQ-9: PHQ-9 Score PHQ-9: Total score 0 02/23/25 10:08 Depression Screening Interpretation: Negative Thrive Assessment: Date of Thrive Assessment Date Thrive assessed 10/09/24 02/23/25 09:26 Office Procedures Flu Questionnaire Does the patient have a severe egg allergy?: No Does the patient have severe life threatening allergies?: No Does the patient have a fever or illness today?: No Has the patient ever had Guillain-Pacoima Syndrome?: No Has the patient ever had any past reaction to a flu shot?: No Immunizations Fluarix [id number] (PF) 45 mcg (15 mcg x 3)/0.5 mL IM syringe Performing Provider: Surya Aden MD [place] [facility] [place] [facility] Documented (not given) by: MARGIE Otto on 02/23/25 10:08 Reason Not Given: Received Previously Coding Level of Care Code Est Pt Prev Care >65y(71020) Diagnoses Annual physical exam Z00.00 Additional Codes EZRA-7 Assessment Billing - EZRA-7 Assessment Tool: EZRA-7 Assessment 86738 ([id number]) PHQ-9 - 44134 - PHQ-9 Billing: Yes ([id number]) Assessment & Plan Assessment & Plan (1) Annual physical exam: Code(s): Z00.00 - Encounter for general adult medical examination without abnormal findings Plan: History of Present Illness - The patient is a 79-year-old female presenting for a physical examination. - She reports a past history of waking one morning with a thud in her chest followed by gasping, which has since resolved. - She has a history of atrial fibrillation, which is managed with Eliquis twice a day. - Her cardiac medications also include aspirin, carvedilol, Jardiance, and Entresto, which was a recent switch from ramipril. - The patient is concerned about her bone density and reports a history of easily compressing discs. - She underwent kyphoplasty for four vertebral discs within the last year. - Her last bone density scan was performed after menopause. - Within the last year, she has developed balance issues and a loss of her normal walking stride, which she feels is related to a period of inactivity while awaiting MRIs for her back. - She received an influenza vaccination two to three weeks ago. - The patient clarifies that she did not use albuterol, contrary to a note from an outside facility. Social History - Employment: The patient is retired; she previously worked at [employer]. - Exercise: The patient reports she is back to going to the gym after a tough year with reduced activity. - Functional Status: The patient drives, including at night if necessary. She reports her hearing is okay. She has experienced a loss of stride and balance issues over the past year. Review of Systems - Cardiovascular: Reports a single, resolved episode of a chest thud and gasping. - Musculoskeletal: Reports balance problems and loss of walking stride. - Gastrointestinal: Denies abdominal pain but reports a sensation of abdominal fullness, which she relates to her back condition. - Neurological: Reports hearing is okay. - Ophthalmologic: Reports seeing little black circles with new corrective lenses. - Respiratory: Denies albuterol use. Reports a past, resolved episode of gasping. Physical Exam General: Cooperative and healthy appearing Nutritional Appearance: Well nourished Orientation/consciousness: Patient oriented x3 Limitations: No limitations Head: Normal to inspection General: Appearance normal, both eyes and all related structures Neck: Normal visual inspection Chest: Normal palpation of entire chest wall Respiratory: Lungs are clear ormal respiratory effort Neurology: Patient oriented x3, balance affected, stride lost within the last year due to back issues Results - Labs: Blood work from October 09 showed a normal A1c, normal liver function tests, and good cholesterol levels. Plan - Continue all current medications without changes. - Order a DEXA scan to evaluate for osteoporosis. - Repeat routine blood work in six months. - Schedule a follow-up appointment in six months. - No prescription refills are needed at this visit. Discussion Notes A physical exam was performed, and I informed the patient that I will be taking over her care. I relayed that her atrial fibrillation appears stable, blood pressure is fine, and her lungs are clear. I advised her to continue all current medications as prescribed. I will order a DEXA scan to screen for osteoporosis, and we will follow up on the results. I also reviewed her lab work from September, which was normal, and recommended repeating it in six months, at which time she should also return for a follow-up visit. Patient Instructions - Continue taking all of your current medications as prescribed. - We will order a bone density scan (DEXA scan) for you. - Plan to have your blood work redone in six months. - Please schedule a follow-up visit with me in six months. - You do not need any prescription refills today. Orders: Orders XR DEXA axial skeleton Today M81.0 - Age-related osteoporosis without current pathological fracture Influenza [id number] Immunization Today Z23 - Encounter for immunization
[2025-02-23 09:25] VITALS: BP 157/70; PULSE 62; RESP 16; TEMP 36.6; O2SAT 97; BMI 28.5
--- OUTSIDE RECORDS SUMMARY | 2025-02-23 10:34 | XMS_ITS | Clinical Summary ---
Author Organization [facility] Address [address] [place] [address] Phone Care Team Providers Care Whizzer Operator Name Role Phone Casey Gamboa MD Unavailable [phone] Surya Aden MD Primary Care Provid er Allergies Active Allergy Reactions Criticality Noted Date Comments Nitrofurantoin Monohyd/M-Cryst 09/20/2016 Other reaction(s): itchy Pollen Extracts 09/20/2016 Other reaction(s): Unknown Sulfa (Sulfonamide Antibiotics) 11/16/2016 Sulfamethoxazole-Trimethoprim 2016 Other reaction(s): itchy [place] Pollen-Rough Pigweed 02/06/2022 Pigweed Medications carvedilol (COREG) 12.5 MG tablet Take 12.5 mg by mouth 2 (two) times a day with meals. Orally Active furosemide (LASIX) 20 MG tablet Take 1 tablet by mouth daily. Active omeprazole (PRILOSEC) 20 MG capsule Take 1 capsule by mouth daily. Active ramipril (ALTACE) 10 MG capsule Take 1 capsule by mouth daily. Active cholecalciferol (VITAMIN D3) 1,000 unit tablet Take 2 tablets by mouth daily. 2,000 units daily Active aspirin 81 MG EC tablet Take 81 mg by mouth daily. Active KRILL OIL ORAL 500 mg daily. A ctive folic acid/multivit,ir on,credit union examiner (CENTRUM ORAL) as directed Orally Active nitroglycerin (NITROSTAT) 0.[address] 0.4 mg under the tongue. Active rosuvastatin (CRESTOR) 40 MG tablet Take 40 mg by mouth nightly at bedtime. Active apixaban (ELIQUIS) 5 mg tablet Take 5 mg by mouth 2 (two) times a day. Active ezetimibe (ZETIA) 10 mg tablet Take 10 mg by mouth daily. Active BIOTIN ORAL Take by mouth. Act ramiro albuterol 90 mcg/actuation inhaler 1 puff as needed Inhalation every 4 hrs Active zafirlukast (ACCOLATE) 20 MG tabletIndication s:Mild persistent asthma, unspecified whether complicated,Isrrael rgic rhinitis, unspecified seasonality, unspecified trigger Take 1 tablet (20 mg total) by mouth 2 (two) times a day. 180 tablet 3 4 Active docusate sodium (COLACE) 100 MG capsule 3 tabs daily Active fexofenadine (KVNG) 60 MG tablet Take 60 mg by mouth. Active ESTRING 2 mg (7.5 mcg /24 hour) vaginal ringIndications: Vaginal atrophy INSERT 1 RING VAGINALLY EVERY 3 MONTHS 1 each 3 5 Active Active Problems Problem Noted Date Diagnosed Date Family history of ovarian cancer 07/24/2018 Hyperlipidemia 07/24/2018 Vaginal atrophy 07/24/2018 History of breast cancer 11/21/2016 Overview (11/24/2019): Left breast Follows annually with Oncology Encounters Date Type Department Care Team Description 02/16/2025 12:00 PM EDT Telemedicine - audio only [facility] [address] [place] [address] [address]rd Floor, [address] [place] [address] Mateo Vasques MD, MS Mild persistent asthma, unspecified whether complicated (Primary Dx); Pulmonary hypertension; Paroxysmal atrial fibrillation; H/O CHF 12/29/2024 Refill [facility] [address] [place] [address] Deandra Lei MD Medication Refill from Last 3 Months Immunizations Immunization Administration Dates Next Due COVID-19 (Pre-02/12) Pfizer Vaccine, mRNA, PF Influenza High-Dose Quadrivalent Preservative Fr ee IM 12/07/2019 Influenza High-Dose Trivalent Preservative Free IM 01/26/2018,01/16/2015 Influenza Quadrivalent w/ Preservative IM 2020 Influenza Trivalent Adjuvanted Preservative free IM 12/06/2018,01/29/2017 Pneumococcal conjugate PCV13 01/26/2018 Pneumococcal polysaccharide PPSV23 03/03/2019, Tdap 12/30/2014 Family History Medical History Relation Comments Hypertension Father Stroke Father Lung cancer Maternal Uncle and larynx cance r Ovarian cancer Mother Hypertension Paternal Aunt Hypertension Paternal Grandfather Relation Status Comments Father Maternal Uncle Mother Paternal Aunt Paternal Grandfather Social History Tobacco Use Types Packs/Day Years Used Date Smoking Tobacco: Former Cigarettes Q uit: 1982 Smokeless Tobacco: Never Tobacco Cessation:Counseling Given: Not Answered Alcohol Use Standard Drinks/Week Comments Yes 5 (1 standard drink = 0.6 oz pure alcohol) small vodka martini once a week Education Answer Date Recorded Are you interested in more education? Not on apolinar e 08/18/2022 Are you concerned about learning? Not on file 08/18/2022 No 08/18/2022 No 08/18/2022 Digital Access Answer Date Recorded No 09/16/2022 No 09/16/2022 Reliable internet access at home? Not on file 09/16/2022 Device with a working camera? Not on file Comments No Sex and Gender Information Value Date Recorded Sex Assigned at Not on file Legal Sex Female 10:07 PM EDT Gender Identity Not on file Sexual Orientation Not on file Last Filed Vital Signs Vital Sign Reading Time Taken Comments Blood Pressure 112/60 08/04/2024 11:22 AM EDT Pulse 62 08/04/2024 11:22 AM EDT Temperature 36.8 C (98.2 F) 12/14/2021 10:28 AM EDT Respiratory Rate 18 12/14/2021 10:28 AM EDT Oxygen Saturation 95% 08/04/2024 11:22 AM EDT Inhaled Oxygen Concentration - - Weight 73 kg (161 lb) 08/04/2024 11:22 AM EDT Height 167.6 cm (5' 5.98 ) 08/04/2024 11:22 AM E DT Body Mass Index 26 08/04/2024 11:22 AM EDT Plan of Treatment Upcoming Encounters Date Type Department Care Team (Late st Contact Info) Description 08/07/2025 9:20 AM EDT Office Visit [facility] [address] Floor, [address] [place] [address] Mateo Vasques MD, MS [address] [facility], [address] [place] [address] [email or web address] Health Maintenance Due Date Last Done Comments CREATININE LEVEL 1946 LIPID PANEL 1946 POTASSIUM LEVEL 1946 DEPRESSION SCREENING 1958 HEPATITIS C SCREENING 1964 ZOSTER VACCINES (1 of 2) 1996 OSTEOPOROSIS SCREENING INITIAL (ONE-TIME) 09/13/2011 RSV VACCINE (1 - 1-dose 75+ series) 2021 INFLUENZA VACCINE (#1) 2024 3, 12/27/2021, 03/23/2021, Additional history exists COVID-19 VACCINE (2024- season) 2024 02/16/2021, 07/05/2020, 06/12/2020 Adult Td,Tdap Booster 12/30/2024 12/30/2014 SMOKING Hx and SMOKELESS TOBACCO SCREENING 08/04/2025 08/04/2024 PNEUMOCOCCAL VACCINES (50+ years) Completed 03/03/2019, 01/26/2018, 01/16/2015 HEPATITIS A VACCINES Aged Out No long er eligible based on patient's age to complete this topic HIB VACCINES Aged Out No longer eligi ble based on patient's age to complete this topic MENINGOCOCCAL VACCINES (ACWY) Aged Out No longer eligible based on patient's age to complete this topic MENINGOCOCCAL VACCINES (B) Aged Out N o longer eligible based on patient's age to complete this topic Medical Devices Not on file Insurance [employer] RE[employer]ACEMENT [employer]EMENT [employer] REPLACEMENT MEDICARE HMO [employer]PLACEMENT [employer] REPLACEMENT [employer] MEDIC[employer] HMO [place]AC[place] [address] [address] [place] [address] MEDICARE HMO REPLACEMENT MEDICARE HMO REPLACEMENT [employer] REPLACEMENT Care Teams Whizzer Operator Relationship Specialty Start Date End Date Surya Aden MD [address] [place] [phone] PCP - General Internal Medicine 05/26/24 Casey Gamboa MD [address] [place] [address] [address] [place] [address] Cardiology 08/17/21 Additional Source Comments The information contained in this document represents components of the legal health record. It is not the complete legal health record.[facility]
--- OUTSIDE RECORDS SUMMARY | 2025-02-23 10:34 | XMS_ITS | Encounter Summary ---
Author Organization [facility] Address [address] [facility] [address] [place] [address] Phone Care Team Providers Care Health Screener Name Role Phone Mateo Clements DO Primary Care Provider [phone] Casey Gamboa MD Unavailable [phone] Surya Aden MD Primary Care Provid er Reason for Visit * Reason Comments Medication Refill Encounter Details Date Type Department Care Team (Late st Contact Info) Description 05/02/2024 [facility] [place] [facility] [address] [place] [address] 3rd Floor, [address] [place] [address] Mateo Vasques MD, MS [address] [facility], [address] [place] [address] [email or web address] Medication Refill Social History Tobacco Use Types Packs/Day Years Used Date Smoking Tobacco: Former Cigarettes Q uit: 1982 Smokeless Tobacco: Never Alcohol Use Standard Drinks/Week Comments Yes 5 [...] on file Sexual Orientation Not on file documented as of this encounter Progress Notes * Amalia Rao MA - 07/21/2024 1:20 PM EDT Called patient and left this message on her machine * Alida Orourke - 05/26/2024 3:08 PM EST Patient called again asking for refill- informed patient that RA has instructed her to request refill from PCP. * Amalia Rao MA - 05/02/2024 10:29 AM EST Rx reviewed documented in this encounter Plan of Treatment Upcoming Encounters Date Type Department Care Team (Late st Contact Info) Description 08/07/2025 9:20 AM EDT Office Visit [facility] [address] [place] [address] [address]rd [facility], [address] [place] [address] Mateo Vasques MD, MS [address] [place] [address], [address] [address] [email or web address] documented as of this encounter Visit Diagnoses Diagnosis Mild persistent asthma, unspecified whether complicated Allergic rhinitis, unspecified seasonality, unspecified trigger documented in this encounter Care Teams Health Screener Relationship Specialty Start Date End Date Mateo Clements DO [address] [place] [address] PCP - General Internal Medicine 08/17/21 05/25/24 Surya Aden MD [address] [place] [address] PCP - General Internal Medicine 05/26/24 Casey Gamboa MD [address] [place] [address] [address] [place] [address] Cardiology 08/17/21 documented as of this encounter Additional Source Comments The information contained in this document represents components of the legal health record. It is not the complete legal health record.[facility]
--- OUTSIDE RECORDS SUMMARY | 2025-02-23 10:34 | XMS_ITS | Encounter Summary ---
Author Organization [facility] Address [address] [place] [address] Phone Care Team Providers Care Airframe And Powerplant Mechanic Name Role Phone Mateo Clements DO Primary Care Provider [phone] Casey Gamboa MD Unavailable [phone] Surya Aden MD Primary Care Provid er Encounter Details Date Type Department Care Team (Latest Contact Info) Description 01/17/2024 Transcribe Orders Virtual Department [address] [place] [address] Gwendolyn Brothers PA [address] [place] [id number] [email or web address] Wedge compression fracture of unsp thoracic vertebra, init (Primary Dx); Wedge compression fracture of unsp lumbar vertebra, init Social History Tobacco Use Types Packs/Day Years [...] on file documented as of this encounter Plan of Treatment Upcoming Encounters Date Type Department Care Team (Late st Contact Info) Description 08/07/2025 9:20 AM EDT Office Visit [facility] [address] [facility] 3rd Floor, [address] [place] [address] Mateo Vasques MD, MS [address] [facility], [facility] [address] [place] [address] [email or web address] documented as of this encounter Visit Diagnoses Diagnosis Wedge compression fracture of unsp thoracic vertebra, init- Primary Wedge compression fracture of unsp lumbar vertebra, init documented in this encounter Care Teams Airframe And Powerplant Mechanic Relationship Specialty Start Date End Date Mateo Clements DO [address] [place] [address] PCP - General Internal Medicine 08/17/21 05/25/24 Surya Aden MD [address] [place] [address] PCP - General Internal Medicine 05/26/24 Casey Gamboa MD [address] [place] [address] [address] [place] [address] Cardiology 08/17/21 documented as of this encounter Additional Source Comments The information contained in this document represents components of the legal health record. It is not the complete legal health record.[facility]
--- OUTSIDE RECORDS SUMMARY | 2025-02-23 10:34 | XMS_ITS | Encounter Summary ---
Author Organization [facility] Address [address] [place] [address] [place] [address] Phone Care Team Providers Care Break Out Worker Name Role Phone Mateo Clements DO Primary Care Provider [phone] Casey Gamboa MD Unavailable [phone] Surya Aden MD Primary Care Provid er Encounter Details Date Type Department Care Team (Late st Contact Info) Description 10/10/2021 Procedure Pass [facility] Scan - [address] [address] Social History Tobacco Use Types Packs/Day Years Used Date Smoking Tobacco: Former Cigarettes Q uit: 1982 Smokeless Tobacco: Never Alcohol Use Standard Drinks/Week Comments Yes 5 (1 standard drink = 0.6 oz pur e alcohol) small vodka martini once daily Comments No Sex and Gender Information Value Date Recorded Sex Assigned at Not on file Legal Sex Female 10:07 PM EDT Gender Identity Not on file Sexual Orientation Not on file documented as of this encounter Plan of Treatment Upcoming Encounters Date Type Department Care Team (Late st Contact Info) Description 08/07/2025 9:20 AM EDT Office Visit [facility] [address] [place] [address] [address]rd Floor, [address] [place] [address] Mateo Vasques MD, MS [address] [facility], [address] [place], [place] [id number] [email or web address] documented as of this encounter Visit Diagnoses Not on filedocumented in this encounter Care Teams Break Out Worker Relationship Specialty Start Date End Date Mateo Clements DO [address] [place] [address] PCP - General Internal Medicine 08/17/21 05/25/24 Surya Aden MD [address] [place] [address] PCP - General Internal Medicine 05/26/24 Casey Gamboa MD [address] [place] [address] Cardiology 08/17/21 documented as of this encounter Additional Source Comments The information contained in this document represents components of the legal health record. It is not the complete legal health record.[facility]
--- OUTSIDE RECORDS SUMMARY | 2025-02-23 10:34 | XMS_ITS | Clinical Summary ---
Author Organization [facility] Address [address] [place] [phone] Phone Care Team Providers Care Land Law Examiner Name Role Phone Surya Aden MD Primary Care Provider [phone] Allergies Active Allergy Reactions Criticality Noted Date Comments Mold 01/20/2025 Sulfa (Sulfonamide Antibiotics) 11/2020 Dobson Pollen-Rough Pigweed 02/06/2022 Pigweed Medications aspirin (ASPIR-81 ORAL) Take by mouth daily. Active CHOLECALCIFEROL, VITAMIN D3, ORAL Take by [...] mouth 1 (one) time each day. Active rosuvastatin (CRESTOR) 40 mg tablet Take 1 tablet (40 mg total) by mouth at bedtime. Take 1 Tablet by mouth daily 90 tablet 1 5 Active apixaban (Eliquis) 5 mg tablet Take 1 tablet (5 mg total) by mouth 2 (two) times a day. 180 tablet 2 5 Active carvediloL (COREG) 12.5 mg tablet Take 1 tablet (12.5 mg total) by mouth 2 (two) times a day with meals. 180 tablet 3 5 Active furosemide (LASIX) 20 mg tablet Take 1 tablet (20 mg total) by mouth 1 (one) time each day. 90 tablet 3 5 Active empagliflozin (Jardiance) 10 mg tabletIndications :Heart failure with mildly reduced ejection fraction (CMS/HCC V24, CMS/HCC V28) Take 1 tablet (10 mg total) by mouth 1 (one) time each day in the morning. 90 tablet 3 5 01/30/20 26 Active sacubitriL-valsar narayanan (Entresto) 24-26 mg per tablet Take 1 tablet by mouth 2 (two) times a day. 180 tablet 1 5 Active ezetimibe (ZETIA) 10 mg tablet Take 1 tablet (10 mg total) by mouth 1 (one) time each day. 90 tablet 1 5 Active ezetimibe (ZETIA) 10 mg tablet Take 1 tablet (10 mg total) by mouth 1 (one) time each day. 90 tablet 1 5 02/07/20 25 Discontinu ed(Reorder ) sacubitriL-valsar narayanan (Entresto) 24-26 mg per tablet Take 1 tablet by mouth 2 (two) times a day. 02/03/20 25 Discontinu ed(Reorder ) Active Problems Problem Noted Date Diagnosed Date Congestive heart failure (CHF) (CMS/HCC V24, CMS /HCC V28) 01/20/2025 Elevated troponin 01/20/2025 NSTEMI (non-ST elevated myoc ardial infarction) (CMS/HCC V24, CMS/HCC V28) 01/20/2025 Preprocedural cardiovascular examination 024 Assessment & Plan [...] device function, no arrhythmias Assessment & Plan (01/20/2025 12:27 PM EDT): Most recent device check showed no events and stable heart failure diagnostics. Continue with cardiac device monitoring. Assessment & Plan (03/13/2024 11:36 AM EST): [...] testing in 2020 was positive for APC [id number] variant-likely benign Last Assessment & Plan: No recent recurrence; continue current carvedilol Assessment & Plan (01/20/2025 12:27 PM EDT): No recent recurrence; continue current carvedilol Assessment [...] fraction (CMS/HCC V24, CMS/HCC V28) 10/07/2021 Overview (01/20/2025): - Probably NYHA class I symptoms at [...] and systolic function with RVEF of 61% -She had an echocardiogram on 01/12/2025 there is basal septal thickening midline with a sigmoid septum configuration otherwise mild left concentric ventricular hypertrophy. LVEF is measured at 35-40%. Assessment & Plan (01/20/2025 12:24 PM EDT): She appears euvolemic on exam. Started on Entresto 24/26 mg p.o. twice daily while hospitalized. Should continue to check her weights daily and limit sodium consumption. She is not endorsing any shortness of breath or dyspnea on exertion. Utilizing carvedilol 12.5 mg p.o. twice daily in addition to the Entresto. Could look to introduce an SGLT2 inhibitor in the future. Would like to repeat an echocardiogram in 6 months or reassess. Assessment & Plan (09/26/2024 8:20 AM EDT): [...] pushed escalation of GDMT. Paroxysmal atrial fibrillation (CMS/[facility] V24, CMS /HCC V28) 08/11/2021 Overview (03/13/2024): - Had an episode in February 2022 with spontaneous conversion after 14 hours in a prior 1 for 3 hours in April 2018 - More recently was seen at [facility] ER on 07/09/2023 with persistent A-fib for 48 hours-because she had been on uninterrupted Eliquis, was cardioverted at [facility] ER -On Eliquis for CVA prophylaxis Assessment & Plan (01/20/2025 12:26 PM EDT): On carvedilol for rate control. On Eliquis for CVA prophylaxis. Denies any abnormal bleeding. Should remain anticoagulated has elevated CHADS2 Vascor secondary to coronary artery disease, age, sex, heart failure. Assessment & Plan (09/26/2024 8:20 AM EDT): [...] to repeat her lipids. Assessment & Plan (01/20/2025 12:31 PM EDT): Utilizing ezetimibe 10 mg p.o. daily,, rosuvastatin 40 mg p.o. at night. Continue. Assessment & Plan (09/26/2024 8:20 AM EDT): [...] Encounters Date Type Department Care Team Description 01/27/2025 Telephone [facility] [address] [facility] [address] [place] [address] Magda Calvo MD 01/20/2025 9:40 AM EDT [facility] Visit [facility] [address] [facility] [address] [place] [address] Checo Kee NP Coronary artery disease involving winnebago coronary artery of winnebago heart without angina pectoris (Primary Dx); Heart failure with mildly reduced ejection fraction (CMS/HCC V24, CMS/HCC V28); Hypertension, unspecified type; Mixed hyperlipidemia; Paroxysmal atrial fibrillation (CMS/HCC V24, CMS/HCC V28); VT (ventricular tachycardia) (CMS/HCC V24, CMS/HCC V28); S/P implantation of automatic cardioverter/defibri llator (AICD); Hyponatremia 01/20/2025 Results [facility]Up [facility] [address] [facility] [address] [place] [address] Checo Kee NP 01/15/2025 Telephone [facility] [address] [facility] [address] [place] [address] Magda Calvo MD 01/14/2025 Telephone [facility] [address] [place] [phone] Melissa Whitaker NP 01/01/2025 5:15 AM EDT Ancillary Procedure [facility] [address] [place] [address] 12/30/2024 9:17 AM EDT - 12/30/2024 11:59 PM EDT Hospital Encounter [facility] MRI [address] [place] [id number] Severe back pain Discharge Disposition: Home or Self Care 11/24/2024 7:57 AM EDT - 11/24/2024 11:59 PM EDT [facility] [address] [phone] Encounter for screening mammogram for breast cancer Discharge Disposition: Home or Self Care from Last 3 Months Surgical History Surgery Date Site/Laterality Comments INSERT / REPLACE / REMOVE PACEMAKER STEREOTACTIC CORE BIOPSY Left BREAST LUMPECTOMY Left CARDIAC CATH DONE ON 01/13/2025 AT [facility] INDICATION:Shortness of breath. Medical History Medical History Date Comments Hypertension Hyperlipidemia Atrial fibrillation ([facility] V24, [facility] V28) Cardiomyopathy ([facility] V24, [facility] V28) Coronary artery disease Ventricular tachycardia ([facility] V24, [facility] V2 8) Breast cancer ([facility] V24, [facility] V28) Lymphadenopathy Dyslipidemia Compression fracture of spine ([facility] V24, [facility] V28) Family History Medical History Relation Name Comments Hypertension Father Stroke Father Cancer Mother Ovarian cancer Mother Endometrial cancer Sister Relation Name Status Comments Father Mother Sister Social History Tobacco Use Types Packs/Day Years Used Date Smoking Tobacco: Former Cigarettes Smokeless Tobacco: Never Tobacco Cessation:Counseling Given: Not Answered Alcohol Use Standard Drinks/Week Comments Yes 0 (1 standard drink = 0.6 oz pur e alcohol) Comments No Sex and Gender Information Value Date Recorded Sex Assigned at Female 03/03/2024 5:35 PM EST Legal Sex Female 3:44 AM EST Gender Identity Female 03/03/2024 5:35 PM EST Sexual Orientation Straight 03/03/2024 5: 35 PM EST Obstetrics History Para Term AB IAB SAB Ectopic Multiple Livin g Live Births 1 Last Filed Vital Signs Vital Sign Reading Time Taken Comments Blood Pressure 102/60 01/20/2025 9:50 AM EDT Pulse 62 01/20/2025 9:50 AM EDT Temperature - - Respiratory Rate - - Oxygen Saturation 97% 01/20/2025 9:50 AM EDT Inhaled Oxygen Concentration - - Weight 73.9 kg (163 lb) 01/20/2025 9:50 AM EDT Height 165.1 cm (5' 5 ) 01/20/2025 9:50 AM EDT Body Mass Index 27.12 01/20/2025 9:50 AM EDT Plan of Treatment Upcoming Encounters Date Type Department Care Team (Late st Contact Info) Description 03/02/2025 1:00 PM EST Office Visit [facility] [address] [facility] [address] [place] [address] Magda Calvo MD [address] [place] [address] [address] [place] [phone] 05/28/2025 10:20 AM EST Office Visit [facility] [address] [facility] [address] [place] [address] Magda Calvo MD [address] [place] [address] [address] [place] [phone] 11/18/2025 9:30 AM EDT Ancillary Procedure [facility] [address] [facility] [address] [place] [address] 11/25/2025 9:30 AM EDT Appointment [facility] at [address] [phone] Health Maintenance Due Date Last Done Comments Zoster Vaccines (1 of 2) 1996 RSV Immunization Adult Patients (1 - 1-dose 75+ series) 2021 Cholesterol Screening (Lipid Panel) 03/31/2022 Falls Risk Assessment 03/31/2022 Hepatitis C Screening 03/31/2022 Medicare Annual Wellness Visit 03/31/2022 Osteoporosis Screening (Bone Density Screening) 03/31/2022 Social Influencers of Health Screening 03/31/2022 Depression Screening 04/23/2024 COVID-19 Vaccine ( season) 2024 02/16/2021, 07/05/2020, 06/12/2020 Influenza Vaccine (#1) 2024 , 12/27/2021, 03/23/2021, Additional history exists Hypertension/CHF/CAD Annual BMP Blood Test 02/12/2026 02/12/2025, 01/23/2025, 01/20/2025, Additional history exists DTaP,Tdap,and Td Vaccines (3 - Td or [...] this topic Medical Devices Implanted Type Area Furnace Checker Device Identifier Shelf Expiration Date Model / Serial / Lot Medt-Card Visia Af Mri Vr [id number] Implanted:06/23 (Quantity not on file) Cardiac ICD MEDTRONIC - CARDIAC RHYTH-CRDM VISIA AF MRI VR [id number] / [id number] / Procedures Procedure Name Priority Date/Time Associated Diagnosis Comments BASIC METABOLIC PANEL Routine 02/12/2025 8:56 AM EDT Heart failure with mildly reduced ejection fraction (CMS/HCC V24, CMS/HCC V28) BASIC METABOLIC PANEL Routine 01/23/2025 11:07 AM EDT Congestive heart failure, unspecified HF chronicity, unspecified heart failure type (CMS/HCC V24, CMS/HCC V28) BASIC METABOLIC PANEL Routine 01/20/2025 10:38 AM EDT Hypertension, unspecified type CARDIAC DEVICE CHECK- REMOTE- MURJ Routine 01/01/2025 5:10 AM EDT MR THORACIC SPINE WO CONTRAST Routine 12/30/2024 10:59 AM EDT Severe back pain MG MAMMO DIGITAL SCREENING W SHAY BILAT Routine 11/24/2024 8:24 AM EDT Encounter for screening mammogram for breast cancer from Last 3 Months Results * Basic metabolic panel (02/12/2025 8:56 AM EDT) Only the most recent of3 resultswithin the time period is included. Glucose 92 70 - 99 mg/dL [facility] Blood Urea Nitrogen (BUN) 17 8 - 27 mg/dL [facility] Creatinine 0.85 0.57 - 1.00 mg/dL [facility] 1 eGFR 70 >59 mL/min/1.7 3 [facility] 1 BUN/Creatinine Ratio 20 12 - 28 [facility] 1 Sodium 135 134 - 144 mmol/L [facility] Potassium 4.7 3.5 - 5.2 mmol/L [facility] 1 Chloride 99 96 - 106 mmol/L [facility] 1 Carbon Dioxide 25 20 - 29 mmol/L [facility] 1 Calcium 9.3 8.7 - 10.3 mg/dL [facility] 1 Blood Venous blood specimen / Unknown 02/12/2025 8:56 AM EDT 02/12/2025 Narrative [facility] 1 - 02/13/2025 1:06 AM EDT Performed at: - [address] [id number] Ext Js Developer: Lupe Mckeon MD, Phone: [phone] us Magda Calvo MD LAB BLOOD ORDERABLES Final Resu lt [facility] 1 * Cardiac device check - Remote- MURJ (01/01/2025 5:10 AM EDT) Date Time Interrogation Session [id number] CV DEVICE CHECK Type Interrogation Session Remote CV DEVICE CHECK Implantable Pulse Generator Furnace Checker MDT CV DEVICE CHECK Implantable Pulse Generator Type ICD CV DEVICE CHECK Implantable Pulse Generator Model Visia AF MRI VR [id number] CV DEVICE CHECK Implantable Pulse Generator Serial Number [id number] CV DEVICE CHECK Implantable Pulse Generator Implant Date [id number] CV DEVICE CHECK Battery Remaining Longevity 41.0 CV DEVICE CHECK Battery Voltage 2.960 CV D EVICE CHECK Battery WOOD CRAFTSMAN Trigger 2.727 CV DEVICE CHECK Battery Status Middle of Service CV DEVICE CHECK Capacitor Charge Time 4.083 CV DEVICE CHECK Vasile Statistic RV Percent Paced 0.01 CV DEVICE CHECK Atrial Tachy Statistic AT/AF [place] Percent 0.00 CV DEVICE CHECK Lead Channel Sensing Intrinsic Amplitude 4.375 CV DEVICE CHECK Lead Channel Setting Sensing Sensitivity 0.30 CV DEVICE CHECK Lead Channel Impedance Value 608 CV DEVICE CHECK Lead Channel Pacing Threshold Amplitude 0.750 CV DEVICE CHECK Lead Channel Pacing Threshold Pulse Width 0.4 CV DEVICE CHECK Lead Channel RV Pacing Threshold Date 2024-12-28 CV DEVICE CHECK Lead Channel Setting Pacing [...] 0 CV DEVICE CHECK RV HV Impedance 67 CV D EVICE CHECK Zone Setting Type [...] 6 CV DEVICE CHECK Date of Service 2025-01-20 CV DEVICE CHECK Anatomical Region Laterality Modality Device Interroga tion 12/28/2024 3:35 PM EDT Impressions 12/31/2024 8:29 PM EDT Normal Remote: No Events * Normal Device Function * Alerts or events: None * Battery: OK, 3.42 yrs * Sensing, impedance and thresholds reviewed * Programmed parameters reviewed * Presenting rhythm reviewed * Heart Rate Histograms reviewed * No significant changes noted Heart Failure Diagnostic: Stable * Heart failure diagnostics assessed through the device * Status: Stable * No overt HF present Narrative Procedure Note Danny Brooke MD - 01/01/2025 IMPRESSION: Normal Remote: No Events * Normal Device Function * Alerts or events: None * Battery: OK, 3.42 yrs * Sensing, impedance and thresholds reviewed * Programmed parameters reviewed * Presenting rhythm reviewed * Heart Rate Histograms reviewed * No significant changes noted Heart Failure Diagnostic: Stable * Heart failure diagnostics assessed through the device * Status: Stable * No overt HF present Danny Brooke MD CV IMPLANTABLE CARDIAC DEV ICE PROCEDURES Final Result * MR Thoracic Spine wo Contrast (12/30/2024 10:59 AM EDT) Anatomical Region Laterality Modality T-spine, Spine Magnetic Resonan ce 01/01/2025 11:1 9 AM EDT Impressions 01/01/2025 11:36 AM EDT Acute compression fracture at T8 with approximately 50% height loss. No retropulsion of bone towards the spinal canal or spinal canal stenosis. Abnormal marrow edema along the posterior aspect of the right T9 superior endplate without height loss, possibly degenerative type I Modic change versus acute nondisplaced compression fracture. Multiple additional chronic thoracolumbar compression fractures with evidence of prior vertebral augmentation at T11 and T12. No thoracic spinal canal stenosis, mass effect upon the cord, or cord signal abnormality. -------- FINAL REPORT -------- Dictated By: LUCIEN CAO Dictated Date: 01/01/2025 11:19 ET Assigned Physician: LUCIEN CAO Reviewed and Electronically Signed By: LUCIEN CAO Signed Date: 01/01/2025 11:36 ET Workstation ID: [id number] Transcribed By: Self Edit Transcribed Date: 01/01/2025 11:19 ET Narrative 01/01/2025 11:36 AM EDT PROCEDURE: Thoracic spine MRI INDICATION: Compression fracture TECHNIQUE: Multiplanar, multisequence MRI of the thoracic spine Without contrast. COMPARISON: 03/04/2024 FINDINGS: Exaggeration of the normal thoracic kyphosis. Chronic compression fractures at L2, T12, and T11 with evidence of prior vertebral augmentation at T11 and T12. Chronic compression fractures at T10, T7, T6, and T5 are unchanged compared to the prior exam. Acute compression fracture seen at T8 with approximately 50 % height loss. No retropulsion of bone towards the spinal canal. Abnormal marrow edema along the posterior aspect of the right T9 superior endplate without height loss. Multilevel degenerative loss of normal disc height and signal with associated degenerative discogenic endplate change. No focal disc protrusion or mass effect upon the thoracic cord. Advanced thoracic facet arthritis most pronounced on the right at T5-6 as well as on the left at T10-11 and T11-12. No high-grade foraminal stenosis. Thoracic cord is normal in signal and morphology. No epidural collection or mass is seen within the spinal canal. Visualized upper abdominal and intrathoracic structures are normal. Paraspinal muscles are within normal limits. No paravertebral hematoma. Procedure Note Lucien Cao MD - 01/01/2025 PROCEDURE: Thoracic spine MRI INDICATION: Compression fracture TECHNIQUE: Multiplanar, multisequence MRI of the thoracic spine Withoutcontrast. COMPARISON: 03/04/2024 FINDINGS: Exaggeration of the normal thoracic kyphosis. Chronic compression fractures at L2, T12, and T11 with evidence of priorvertebral augmentation at T11 and T12. Chronic compression fractures atT10, T7, T6, and T5 are unchanged compared to the prior exam. Acute compression fracture seen at T8 with approximately 50 % height loss.No retropulsion of bone towards the spinal canal. Abnormal marrow edema along the posterior aspect of the right T9 superiorendplate without height loss. Multilevel degenerative loss of normal disc height and signal withassociated degenerative discogenic endplate change. No focal discprotrusion or mass effect upon the thoracic cord. Advanced thoracic facet arthritis most pronounced on the right at T5-6 aswell as on the left at T10-11 and T11-12. No high-grade foraminalstenosis. Thoracic cord is normal in signal and morphology. No epidural collectionor mass is seen within the spinal canal. Visualized upper abdominal and intrathoracic structures are normal.Paraspinal muscles are within normal limits. No paravertebral hematoma. IMPRESSION: Acute compression fracture at T8 with approximately 50% height loss. Noretropulsion of bone towards the spinal canal or spinal canal stenosis. Abnormal marrow edema along the posterior aspect of the right T9 superiorendplate without height loss, possibly degenerative type I Modic changeversus acute nondisplaced compression fracture. Multiple additional chronic thoracolumbar compression fractures withevidence of prior vertebral augmentation at T11 and T12. No thoracicspinal canal stenosis, mass effect upon the cord, or cord signalabnormality. -------- FINAL REPORT -------- Dictated By: LUCIEN CAO Dictated Date: 01/01/2025 11:19 ET Assigned Physician: LUCIEN CAO Reviewed and Electronically Signed By: LUCIEN CAO Signed Date: 01/01/2025 11:36 ET Workstation ID: [id number] Transcribed By: Self Edit Transcribed Date: 01/01/2025 11:19 ET us Rito Schofield MD IMG MRI PROCEDURES Final R esult * MG Mammo Digital Screening w Shay bilat (11/24/2024 8:24 AM EDT) Anatomical Region Laterality Modality Breast Bilateral Mammography 11/24/2024 10:5 9 AM EDT Impressions 11/24/2024 11:06 AM EDT No mammographic evidence of malignancy. Postlumpectomy changes in the upper-outer quadrant of the left breast are stable. A negative mammogram in the presence of a clinically suspicious palpable abnormality does not preclude the possibility of malignancy or alter the indications for biopsy. PQRI CPT II 3342F Code 83330, 80523 PQRI 225 CPT II 7025F TISSUE DENSITY: There are scattered areas of fibroglandular density. (BI-RADS category B) IMPRESSION: Benign. BI-RADS CATEGORY: 2 - BENIGN RECOMMENDATION: Screening bilateral mammogram is recommended in 1 year. Mammo Location: [facility], [address] [place] [address] -------- FINAL REPORT -------- Dictated By: Uriah Guadarrama Dictated Date: 11/24/2024 10:59 ET Assigned Physician: Uriah Guadarrama Reviewed and Electronically Signed By: Uriah Guadarrama Signed Date: 11/24/2024 11:06 ET Workstation ID: [id number] Transcribed By: Self Edit Transcribed Date: 11/24/2024 10:59 ET Narrative 11/24/2024 11:06 AM EDT CLINICAL: The patient is a 79 years Female presenting for routine screening mammography. The patient has a personal history of left breast carcinoma treated with lumpectomy in 2008, followed by radiation and chemotherapy. COMPARISON: Most recently 11/23/2023 and most remotely 10/27/2016. TECHNIQUE: Full-field digital mammography of the breasts bilaterally consisting of tomosynthesis in MLO and CC projection is performed in the Cloud[employer] 2000-D unit. Computer aided detection utilizing the iCAD system was utilized. FINDINGS: The right axilla is largely obscured by a pacemaker generator as also seen on prior studies. The breasts are again seen to be composed of a combination of fatty and fibroglandular elements. Tissue asymmetry and architectural distortion are again seen in the upper-outer quadrant of the left breast, with adjacent surgical clips, representing the lumpectomy scar. Overlying skin thickening and retraction is again seen. Bilateral benign calcifications are stable. There is no suspicious cluster of microcalcifications, mass, or new area of architectural distortion. There is no nipple retraction. Procedure Note Uriah Guadarrama MD - 11/24/2024 CLINICAL: The patient is a 79 years Female presenting for routinescreening mammography. The patient has a personal history of left breastcarcinoma treated with lumpectomy in 2008, followed by radiation andchemotherapy. COMPARISON: Most recently 11/23/2023 and most remotely 10/27/2016. TECHNIQUE: Full-field digital mammography of the breasts bilaterallyconsisting of tomosynthesis in MLO and CC projection is performed in theNasza-klasa.plographe 2000-D unit. Computer aided detection utilizing the Wiz Mapsystem was utilized. FINDINGS: The right axilla is largely obscured by a pacemaker generator asalso seen on prior studies. The breasts are again seen to be composed ofa combination of fatty and fibroglandular elements. Tissue asymmetry andarchitectural distortion are again seen in the upper-outer quadrant of theleft breast, with adjacent surgical clips, representing the lumpectomyscar. Overlying skin thickening and retraction is again seen. Bilateralbenign calcifications are stable. There is no suspicious cluster ofmicrocalcifications, mass, or new area of architectural distortion. Thereis no nipple retraction. IMPRESSION: No mammographic evidence of malignancy. Postlumpectomy changes in theupper-outer quadrant of the left breast are stable. A negative mammogram in the presence of a clinically suspicious palpableabnormality does not preclude the possibility of malignancy or alter theindications for biopsy. PQRI CPT II 3342F Code 47159, 89279 PQRI 225 CPT II 7025F TISSUE DENSITY: There are scattered areas of fibroglandular density.(BI-RADS category B) IMPRESSION: Benign. BI-RADS CATEGORY: 2 - BENIGN RECOMMENDATION: Screening bilateral mammogram is recommended in 1 year. Mammo Location: [facility], [address] [place] [id number] -------- FINAL REPORT -------- Dictated By: Uriah Guadarrama Dictated Date: 11/24/2024 10:59 ET Assigned Physician: Uriah Guadarrama Reviewed and Electronically Signed By: Uriah Guadarrama Signed Date: 11/24/2024 11:06 ET Workstation ID: [id number] Transcribed By: Self Edit Transcribed Date: 11/24/2024 10:59 ET us Self Referral Sppl IMG BI PROCEDURES Final Resul t from Last 3 Months Insurance [employer]AGE Care Teams Land Law Examiner Relationship Specialty Start Date End Date Surya Aden MD [facility] [place] [facility] [address] [place], [place] [address] [place] [address] PCP - General Internal Medicine 11/03/24
--- OUTSIDE RECORDS SUMMARY | 2025-02-23 10:34 | XMS_ITS | Clinical Summary ---
Author Organization [facility] Address [address] [place] [address] Care Team Providers Care Adjunct Professor Of Voice Name Role Phone Mateo Clements Primary Care Provider [phone] Allergies Active Allergy Reactions Criticality Noted Date [...] every 12 (twelve) hours. 0 Active Biotin 55546 MCG TBDP Take 50,000 Units by mouth. [...] age to complete this topic Care Teams Adjunct Professor Of Voice Relationship Specialty Start Date End Date Mateo Clements DO [address] [place] [phone] PCP - General Internal Medicine 11/20/18
== END 2025-02-23 10:23 | disposition home or self-care (01) ==
LOC: HO.HMCSH 09:24
PROVIDERS: PCP Internal Medicine; Visit Provider Internal Medicine
DX: Z23 Encounter for immunization (principal); Z00.00 Encounter for general adult medical examination without abnormal findings

== ENCOUNTER → 2025-02-23 09:24 | Outpatient (BNVA) | payer MEDICARE, SELFPAY | PROVIDERS: PCP Internal Medicine; Visit Provider Internal Medicine | DX: Z00.00 Encounter for general adult medical examination without abnormal findings (principal); I48.91 Unspecified atrial fibrillation; M81.0 Age-related osteoporosis without current pathological fracture; Z79.01 Long term (current) use of anticoagulants; Z28.89 Immunization not carried out for other reason; Z79.899 Other long term (current) drug therapy | CPT/HCPCS: 90471; 96127; 99397 ==

== ENCOUNTER 2025-03-23 10:45 | Outpatient (AMB) | payer MEDICARE, SELFPAY ==
--- NOTE | 2025-03-23 10:49 | MHC.PC.OV ---
Vital Signs 03/23/25 10:50 Height 5 ft 3.75 in Weight 165 lb BMI 28.5 BP 144/65 H Blood Pressure Location Rt brachial Position Sitting Respiration 16 Pulse 60 Pulse Source Pulse Oximeter Temp 97.1 F Temp Source Temporal Artery Scan Pulse Oximetry (%) 97 Oxygen Delivery Method Room Air Intake Visit Reasons: ED follow up Silverware Cleaner Required: No Accompanied by: Self / Same As Patient Allergies Sulfa (Sulfonamide Antibiotics) Allergy (Unknown, Verified 03/23/25 13:16) hives Medication List - Last Reconciled 03/23/25 by Surya Aden MD apixaban (Eliquis) 5 mg PO BID aspirin (Ecotrin Low Strength) 81 mg PO DAILY carvedilol 12.5 mg PO BID cholecalciferol (vitamin D3) 50 mcg PO DAILY empagliflozin (Jardiance) 10 mg PO DAILY estradiol (Estring) 1 vaginal [id number] ezetimibe 10 mg PO DAILY fluoride (sodium) 1.1% (PreviDent 5000 Dry Mouth) dental DIRECTED furosemide 20 mg PO DAILY krill oil mg PO pqkxatlphtxy-oags-kmeso acid 18-400 mg-mcg (Centrum) 1 tab PO DAILY nitroglycerin (Nitrostat) 0.4 mg sublingual Q5M PRN omeprazole 20 mg PO DAILY rosuvastatin 40 mg PO DAILY sacubitril-valsartan 49-51 mg 1 tab PO BID zafirlukast 20 mg PO BID Tobacco use date assessed: 10/09/24 Dental Screening Dental Screen Date: 10/09/24 HPI HPI Comments History of Present Illness Details History of Present Illness - The patient is a 79 year old individual presenting to discuss weight loss medication. - The patient has gained weight, currently at 165 lbs, up from 156 lbs in June of this year. - The patient reports a prior weight of 174 lbs and lost 17 pounds in 2023. - The patient's carpet repairer, Dr. Calvo, recommended weight loss to reduce strain on the heart. - The patient has a history of atrial fibrillation and takes Eliquis twice daily. - The patient experienced an episode of atrial fibrillation on March 13 and underwent cardioversion. - The patient has a Medtronic defibrillator, which was implanted approximately seven years ago. - The patient sustained two vertebral compression fractures last year and two more this year. - The patient has a history of back injuries, including one last October after tipping a concrete birdbath and another this past October. - The patient has undergone kyphoplasty and is currently in physical therapy. - The patient has had a cough for a month and a half, possibly related to dust from a bathroom construction project. - The patient has an Advair inhaler but was told by a high school social studies teacher not to use it due to heart concerns. Social History - Activity: The patient's activity level has been reduced due to back pain, though the patient reports attending physical therapy. - Diet: The patient is attempting to lose weight through diet by eating salads and reducing intake of carbohydrates and sugar. - Functional Status: The patient reports difficulty standing up straight and feels hunched over due to back pain, using a brace for support. Results - Imaging: The patient reports two vertebral compression fractures last year and two additional ones this year, though specific imaging reports were not reviewed. [facility] Medical History Prediabetes Chronic interstitial lung disease History of smoking Chronic cough Overweight (BMI 25.0-29.9) Bronchitis History of mammogram (~11/23/23) Breast cancer, left Squamous cell carcinoma of skin GERD (gastroesophageal reflux disease) Hyperlipidemia Hypertension Paroxysmal atrial fibrillation Congestive heart failure Coronary artery disease History of heart attack Surgical History History of colonoscopy (~12/20/18) History of appendectomy History of left knee replacement H/O lumpectomy Family History Father Stroke Mother Ovarian cancer Social History Housing: House Alcohol intake: current Alcohol intake frequency: a few times a week Patient Tobacco Use Status: Former Tobacco user service: No Current occupational status: retired Cognitive needs: No Hearing needs: No Vision needs: Yes (rx glasses) Questionnaire PHQ-9 Over the last 2 weeks, how often have you been bothered by any of the following problems? 1. Little interest or pleasure in doing things: not at all 2. Feeling down, depressed, or hopeless: not at all 3. Trouble falling or staying asleep, or sleeping too much: not at all 4. Feeling tired or having little energy: not at all 5. Poor appetite or overeating: not at all 6. Feeling bad about yourself - or that you are a failure or have let yourself or your family down: not at all 7. Trouble concentrating on things, such as reading the newspaper or watching television: not at all 8. Moving or speaking so slowly that other people could have noticed. Or the opposite - being so fidgety or restless that you have been moving around a lot more than usual: not at all 9. Thoughts that you would be better off or of hurting yourself in some way: not at all Total score: 0 Depression Screening Interpretation: Negative Depression Screening Done: Yes 57753 - PHQ-9 Billing: Yes Source: Developed by Drs. Mateo Worrell, Tamera Palacios, Raphael Lechuga and colleagues, with an educational ranjit from [employer]. Thrive Questionnaire Date Thrive assessed: 10/09/24 I am a: Patient What is your living situation today?: I have a steady place to live Within the past 12 months, did the food you bought not last and you didn't have the money to get more?: Never true Within the past 12 months, did you worry whether your food would run out before you got money to buy more?: Never true Do you have trouble paying for medicines?: No Do you have trouble getting transportation to medical appointments?: No Do you have trouble paying your heating and electricity bill?: No Do you have trouble taking care of your child, family member or friend?: No Do you have trouble with day-to-day activities such as bathing, preparing meals, shopping, managing finances, etc.?: No Are you currently unemployed and looking for a job?: No Are you interested in more education?: No Please select the resources that you would like help with: None THRIVE Score: 0 AUDIT C Alcohol Use Questionnaire (AUDIT-C) 1. How often do you have a drink containing alcohol?: 2-3 times a week 2. How many drinks containing alcohol do you have on a typical day when you are drinking?: 1 or 2 3. How often do you have six or more drinks on one occasion?: Never Total Score: 3 Score Reviewed/Action Taken: No EZRA-7 AMB Questionnaire EZRA-7 Date EZRA - 7 assessed: 10/09/24 Feeling nervous, anxious, or on edge: 0 = Not at all Not being able to stop or control worryin = Not at all Worrying too much about different things: 0 = Not at all Trouble relaxin = Not at all Being so restless that it is hard to sit still: 0 = Not at all Becoming easily annoyed or irritable: 0 = Not at all Feeling afraid as if something awful might happen: 0 = Not at all Total EZRA-7 score (0-4 normal; 5-9 mild; 10-14 moderate; 15-21 severe): 0 Source: Developed by Drs. Maeto Worrell, Tamera Palacios, Raphael Lechuga and colleagues, with an educational ranjit from [employer]. EZRA-7 Assessment Billing EZRA-7 Assessment Tool: EZRA-7 Assessment 21077 Review of Systems Narrative Review of Systems - Constitutional: Reports recent weight gain and feeling compressed . - Cardiovascular: Reports a history of atrial fibrillation, with a past episode described as a thud in the chest with gasping. - Respiratory: Reports a cough for the past month and a half. - Musculoskeletal: Reports back pain and new abdominal prominence described as a ball here . Reports decreased height from 5'9 to 5'5 . - Neurological: Reports a history of balance issues and loss of normal walking. Physical exam (Primary Care) Vital Signs: Last Vital Signs Temp 97.1 F 03/23/25 10:50 Pulse 60 03/23/25 10:50 Resp 16 03/23/25 10:50 BP 144/65 H 03/23/25 10:50 Pulse Ox 97 03/23/25 10:50 Oxygen Delivery Method Room Air 03/23/25 10:50 BMI result Body Mass Index 28.5 Tobacco/Smoking Status: Tobacco use Status Tobacco use date assessed 10/09/24 03/23/25 10:56 Patient Tobacco Use Status Former Tobacco user 03/23/25 10:56 PHQ-9: PHQ-9 Score PHQ-9: Total score 0 03/23/25 10:56 Depression Screening Interpretation: Negative Thrive Assessment: Date of Thrive Assessment Date Thrive assessed 10/09/24 03/23/25 10:56 Narrative Physical Exam General: Appearance normal, both eyes and all related structures Nutritional Appearance: Well nourished Orientation/consciousness: Patient oriented x3 Limitations: No limitations Head: Normal to inspection Neck: Normal visual inspection Chest: Normal palpation of entire chest wall Respiratory: Cough present, advised to use Advair inhaler for a week Neurology: Patient oriented x3 Coding Level of Care Code Complex visit Add On G2211 Diagnoses Hypertension I10 Additional Codes EZRA-7 Assessment Billing - EZRA-7 Assessment Tool: EZRA-7 Assessment 87033 ([id number]) PHQ-9 - 08757 - PHQ-9 Billing: Yes ([id number]) Assessment & Plan Assessment & Plan (1) Hypertension: Code(s): I10 - Essential (primary) hypertension Category: Medical Plan Plan - For weight management, we discussed GLP-1 agonist medications like Wegovy. - I explained that these medications work by slowing gastric emptying and causing nausea, which leads to reduced food intake and subsequent weight loss. - We discussed the potential mwl-we-rjadih cost of around $499 per month and the likelihood of insurance denial. - I advised the patient that given the complex medical history, including AFib and back issues, this medication might not be the best option, but I am willing to prescribe it if the patient chooses to proceed. - The patient will first contact the insurance provider, [employer], to determine coverage and requirements for authorization before making a decision. - For the cough, I recommended the patient use the Advair inhaler for one week. - The patient will continue with diet modifications, exercise as tolerated, and physical therapy for back pain and weight management. - The patient will follow up to communicate the decision regarding weight loss medication. Discussion Notes I discussed the patient's request for weight loss medication, which was verbally suggested by the patient's carpet repairer, Dr. Calvo. We reviewed medications like Wegovy and Ozempic, and I explained their mechanism of action, which involves slowing gut motility and inducing nausea to decrease appetite and food intake. I informed the patient about the high cost, approximately $499 per month, and the strong possibility of insurance not covering the medication for weight loss. I expressed my opinion that given the patient's complex medical history including atrial fibrillation and significant back problems, these medications may not be ideal. However, I agreed to prescribe the medication if the patient decides to proceed after weighing the risks, benefits, and costs. I advised the patient to first contact the insurance company to inquire about coverage and the authorization process. Regarding the patient's cough, I recommended using the Advair inhaler for one week. The patient will consider the options and inform me of the decision. Patient Instructions - Please consider if you would like to proceed with a weight loss medication. - If you are interested in the medication, your first step is to call your insurance company, [employer]. - Ask them if they cover medications for weight loss and what steps are needed for me to get it approved for you. - For your cough, please use your Advair inhaler for one week. - Continue trying to lose weight with a healthy diet, such as eating salads and avoiding excess sugar. - Continue with your physical therapy for your back. - Please let me know what you decide about the medication.
[2025-03-23 10:50] VITALS: BP 144/65; PULSE 60; RESP 16; TEMP 36.2; O2SAT 97; BMI 28.5
--- OUTSIDE RECORDS SUMMARY | 2025-03-23 13:43 | XMS_ITS | Clinical Summary ---
Author Organization [facility] Address [address] [place] [address] Care Team Providers Care Sofa Cover Inspector Name Role Phone Mateo Clements Primary Care Provider [phone] Allergies Active Allergy Reactions Criticality Noted Date [...] every 12 (twelve) hours. 0 Active Biotin 06739 MCG TBDP Take 50,000 Units by mouth. [...] age to complete this topic Care Teams Sofa Cover Inspector Relationship Specialty Start Date End Date Mateo Clements DO [address] [place] [phone] PCP - General Internal Medicine 11/20/18
--- OUTSIDE RECORDS SUMMARY | 2025-03-23 13:43 | XMS_ITS | Encounter Summary ---
Author Organization [facility] Address [address] [place] [address] Phone Care Team Providers Care Shell Plater Name Role Phone Mateo Clements DO Primary Care Provider [phone] Casey Gamboa MD Unavailable [phone] Surya Aden MD Primary Care Provid er Reason for Visit * Reason Comments Medication Refill Encounter Details Date Type Department Care Team (Late st Contact Info) Description [facility] [address] [place] [address] 3rd Floor, [address] [place] [phone] Mateo Vasques MD, [place] [address] [facility], [address] [place] [phone] [email or web address] Medication Refill Social History Tobacco Use Types [...] Description 08/07/2025 9:20 AM EDT Office Visit [facility] [address] [place] [address] [address] [facility], [address] [place] [address] Mateo Vasques MD, MS [address] [place] [address], [address] [address] [email or web address] documented as of this encounter Visit Diagnoses Diagnosis Mild persistent asthma, unspecified whether complicated Allergic rhinitis, unspecified seasonality, unspecified trigger documented in this encounter Care Teams Shell Plater Relationship Specialty Start Date End Date Mateo Clements DO [address] [place] [address] PCP - General Internal Medicine 08/17/21 05/25/24 Surya Aden MD [address] [place] [address] PCP - General Internal Medicine 05/26/24 Casey Gamboa MD [address] [place] [address] [address] [place] [address] Cardiology 08/17/21 documented as of this encounter Additional Source Comments The information contained in this document represents components of the legal health record. It is not the complete legal health record.[facility]
--- OUTSIDE RECORDS SUMMARY | 2025-03-23 13:43 | XMS_ITS | Clinical Summary ---
Author Organization [facility] Address [address] [place] [address] Phone Care Team Providers Care Stopper Setter Name Role Phone Casey Gamboa MD Unavailable [phone] Surya Aden MD Primary Care Provid er Allergies Active Allergy Reactions Criticality Noted Date Comments Nitrofurantoin Monohyd/M-Cryst 09/20/2016 Other reaction(s): itchy Pollen Extracts 09/20/2016 Other reaction(s): Unknown Sulfa (Sulfonamide Antibiotics) 11/16/2016 Sulfamethoxazole-Trimethoprim 2016 Other reaction(s): itchy Lapoint Pollen-Rough Pigweed 02/06/2022 Pigweed Medications carvedilol (COREG) [...] 500 mg daily. A ctive folic acid/multivit,ir on,death claim examiner (CENTRUM ORAL) as directed Orally Active [...] 12:00 PM EDT Telemedicine - audio only [facility] [address] [place] [address] [address]rd Floor, [address] [place] [address] Mateo Vasques MD, MS Mild persistent asthma, unspecified whether complicated (Primary Dx); Pulmonary hypertension; Paroxysmal atrial fibrillation; H/O CHF 12/29/2024 Refill [facility] [address] [place] [address] Deandra Lei MD Medication Refill from Last [...] Description 08/07/2025 9:20 AM EDT Office Visit [facility] [address] Floor, [address] [place] [address] Mateo Vasques MD, MS 22 [facility], [address] [place] [address] [email or web address] Maintenance Due Date Last [...] REPLACEMENT [employer] [place] MEDIC[place] H[place] REPLACEMENT Member Subscriber Plan / [facility] Name:Yuli Hu Relation to Subscriber:Self Name:Yuli Hu Payer ID:Not on file Type:Medicare Address: [place] [address] MEDICARE HMO REPLACEMENT [employer] [place] MEDIC[place] HMO REPLACEMENT [employer] [place] MEDICARE HMO [place]AC[place] [place] [address] MEDICARE HMO REPLACEMENT MEDICARE HMO REPLACEMENT [employer] [place] MEDIC[place] H[place] REPLACEMENT Care Teams Stopper Setter Relationship Specialty Start Date End Date Surya Aden MD [address] [place] [address] PCP - General Internal Medicine 05/26/24 Casey Gamboa MD [address] [place] [address] [address] [place] [address] Cardiology 08/17/21 Additional Source Comments The information contained in this document represents components of the legal health record. It is not the complete legal health record.[facility]
--- OUTSIDE RECORDS SUMMARY | 2025-03-23 13:43 | XMS_ITS | Encounter Summary ---
Author Organization [facility] Address [address] [place] [address] Phone Care Team Providers Care Venetian Blind Washer Name Role Phone Mateo Clements DO Primary Care Provider [phone] Casey Gamboa MD Unavailable [phone] Surya Aden MD Primary Care Provid er Encounter Details Date Type Department Care Team (Latest Contact Info) Description 01/17/2024 Transcribe Orders Virtual Department [address] [place] [address] Gwendolyn Brothers PA [address] [place] [phone] [email or web address] Wedge compression fracture of unsp thoracic vertebra, [...] Description 08/07/2025 9:20 AM EDT Office Visit [facility] [address] [facility] 3rd Floor, [address] [place] [address] Mateo Vasques MD, MS 22 [facility] [address] [place] [address] [email or web address] documented as of this encounter Visit Diagnoses Diagnosis Wedge compression fracture of unsp thoracic vertebra, init- Primary Wedge compression fracture of unsp lumbar vertebra, init documented in this encounter Care Teams Venetian Blind Washer Relationship Specialty Start Date End Date Mateo Clements DO [address] [place] [phone] PCP - General Internal Medicine 08/17/21 05/25/24 Surya Aden MD [address] [place] [address] PCP - General Internal Medicine 05/26/24 Casey Gamboa MD [address] [place] [address] [address] [place] [address] Cardiology 08/17/21 documented as of this encounter Additional Source Comments The information contained in this document represents components of the legal health record. It is not the complete legal health record.[facility]
--- OUTSIDE RECORDS SUMMARY | 2025-03-23 13:43 | XMS_ITS | Clinical Summary ---
Author Organization [facility].. Address [address] [address] Phone Care Team Providers Care Line Up Machine Operator Name Role Phone Surya Aden MD Primary Care Provider + Allergies Active Allergy Reactions Criticality Noted Date Comments Molds & Smuts 01/20/2025 Nitrofurantoin 09/20/2016 Other reaction(s): itchy Sulfa Antibiotics 11/16/2016 Sulfamethoxazole-Trimethoprim 2016 Other reaction(s): itchy Medications albuterol HFA (PROVENTIL HFA;VENTOLIN HFA) 108 (90 Base) MCG/ACT inhaler 1 puff as needed Inhalation every 4 hrs Active apixaban (ELIQUIS) 5 MG tablet Take 5 mg by mouth in the morning and 5 mg in the evening. 5 Active Biotin 85762 MCG tablet dispersible Take 50,000 Units by mouth Active carvedilol (COREG) 12.5 MG tablet Take 12.5 mg by mouth in the morning and 12.5 mg in the evening. Take with meals. 5 Active cholecalciferol (Vitamin D-[address]) 25 MCG (1000 UT) tablet Take 2 tablets by mouth in the morning. Active Docusate Sodium (DSS) 100 MG capsule Take 100 mg by mouth 2 times daily. Active Estradiol (Estring) 7.5 MCG/24HR ring INSERT 1 RING VAGINALLY EVERY 3 MONTHS 5 Active ezetimibe (ZETIA) 10 MG tablet Take 10 mg by mouth in the morning. 5 Active fexofenadine (KVNG) 60 MG tablet Take 60 mg by mouth in the morning. Active fluticasone (FLONASE) 50 MCG/ACT nasal spray 1 spray Active furosemide (LASIX) 20 MG tablet Take 20 mg by mouth in the morning. 5 Active nitroglycerin (NITROSTAT) 0.[address] 1 TABLET UNDER THE TONGUE EVERY 5 MINS IF NEEDED FOR CHEST PAIN 3 Active omeprazole (PriLOSEC) [address] capsule Take 1 capsule by mouth in the morning. Active rosuvastatin (CRESTOR) 40 MG tablet Take 40 mg by mouth 5 Active zafirlukast (ACCOLATE) 20 MG tablet Take 20 mg by mouth in the morning and 20 mg in the evening. Active sacubitril-valsa rtan (Entresto) 24-26 MG per tablet Take 1 tablet by mouth in the morning and 1 tablet in the evening. 5 Active Active Problems Problem Noted Date Diagnosed Date Hyponatremia 01/26/2025 Hypertension 01/26/2025 Dyslipidemia 01/26/2025 Congestive heart failure 01/20/2025 Automatic implantable cardiac defibrillator in s itu 08/23/2023 Overview (01/26/2025): - Status post single-lead Medtronic, MRI compatible AICD placement in 2016 for VT/VF induced on EP study -Most recent heart failure device check that I have access to from November 2023 showing no overt heart failure, most recent full device check from October 2023 showing normal device function, no arrhythmias Ventricular tachycardia 07/23/2023 Overview (01/26/2025): - Cardiac cath for CAD section in 2017 - Status post EP study without induction of VT degenerating to VF - She got upgraded to a single-chamber Medtronic MRI compatible defibrillator in June 2016 - 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 Last Assessment & Plan: No recent recurrence; continue current carvedilol Atrial fibrillation 07/19/2023 Coronary arteriosclerosis 02/28/2021 Overview (01/26/2025): - Status post anteroseptal NM over 24 years ago with angioplasty and [...] mid anteroseptal, mid inferior, and apical malik History of malignant neoplasm of breast 11/22/19 17 Overview (01/26/2025): Left breast Follows annually with Oncology Encounters Date Type Department Care Team Description 01/26/2025 8:20 AM EDT Office Visit [facility] [address] [phone] Cedrick Roman MD Hyponatremia (Primary Dx); Hypertension; Dyslipidemia; Other persistent atrial fibrillation (HCC); Ventricular tachycardia, not otherwise specified (HCC) from Last 3 Months Social History Tobacco Use Types Packs/Day Years Used Date Smoking Tobacco: Never Assessed Comments Unknown Sex and Gender Information Value Date Recorded Sex Assigned at Not on file Legal Sex Female 8:00 PM EDT Gender Identity Not on file Sexual Orientation Not on file Last Filed Vital Signs Vital Sign Reading Time Taken Comments Blood Pressure 126/70 01/26/2025 8:24 AM EDT Pulse 60 01/26/2025 8:24 AM EDT Temperature - - Respiratory Rate - - Oxygen Saturation 95% 01/26/2025 8:24 AM EDT Inhaled Oxygen Concentration - - Weight 75.3 kg (166 lb) 01/26/2025 8:24 AM EDT Height - - Body Mass Index - - Plan of Treatment Health Maintenance Due Date Last Done Comments Influenza Vaccine (#1) 2024 , 12/06/2018, 01/26/2018, Additional history exists Pneumococcal Vaccine: 50+ Years Completed 03/03/2019, 01/26/2018, 01/16/2015 Hepatitis B Vaccine Aged Out No longe r eligible based on patient's age to complete this topic Insurance Care Teams Line Up Machine Operator Relationship Specialty Start Date End Date Surya Aden MD [facility] [address] [place] [address] [address] PCP - General Internal Medicine 01/20/25
--- OUTSIDE RECORDS SUMMARY | 2025-03-23 13:43 | XMS_ITS | Encounter Summary ---
Author Organization [facility] Address [address] [place] [address] [place] [phone] Phone Care Team Providers Care Director Surgical Name Role Phone Mateo Clements DO Primary Care Provider [phone] Casey Gamboa MD Unavailable [phone] Surya Aden MD Primary Care Provid er Encounter Details Date Type Department Care Team (Late st Contact Info) Description 10/10/2021 Procedure Pass [facility], Ct Scan - [address] [phone] Social History Tobacco Use Types Packs/Day Years [...] Description 08/07/2025 9:20 AM EDT Office Visit [facility] [address] [place] [address] [address] Floor, [address] [place] [address] Mateo Vasques MD, [place] [address], [address] [place], [place] [id number] [email or web address] documented as of this encounter Visit Diagnoses Not on filedocumented in this encounter Care Teams Director Surgical Relationship Specialty Start Date End Date Mateo Clements DO [address] [place] [phone] PCP - General Internal Medicine 08/17/21 05/25/24 Surya Aden MD [address] [place] [phone] PCP - General Internal Medicine 05/26/24 Casey Gamboa MD [address] [place] [phone] Cardiology 08/17/21 documented as of this encounter Additional Source Comments The information contained in this document represents components of the legal health record. It is not the complete legal health record.[facility]
== END 2025-03-23 11:42 | disposition home or self-care (01) ==
LOC: HO.HMCSH 10:45
PROVIDERS: PCP Internal Medicine; Visit Provider Internal Medicine
DX: I10 Essential (primary) hypertension (principal)

== ENCOUNTER → 2025-03-23 10:45 | Outpatient (BNVA) | payer MEDICARE, SELFPAY | PROVIDERS: PCP Internal Medicine; Visit Provider Internal Medicine | DX: I10 Essential (primary) hypertension (principal); I48.91 Unspecified atrial fibrillation; Z79.01 Long term (current) use of anticoagulants | CPT/HCPCS: 96127; 99212 ==